=== PATIENT | male | born 1950 | race African-American/Black ===

== ENCOUNTER 2018-05-20 10:54 | Inpatient (IN) ==
--- NOTE | 2018-05-20 11:42 | PROVIDER DOCUMENTATION ---
This chart was entered by Yvette Hernandez Scribe, acting as scribe for Khoi Lundy MD. HPI-Musculoskeletal Pain/Inj - GENERAL Chief Complaint: Extremity Pain Stated Complaint: LEG PAIN Time Seen by Provider: 05/20/18 11:00 Source: patient - HX OF PRESENT ILLNESS-MUSKULOSKELTAL Nature of Presenting Problem: 68yom with hx of CHF, diabetes, HTN c/o bilateral knee pain since yesterday. He was seen in the [facility] ED yesterday for similar symptoms. He reports his pain worsened yesterday. He reports his physicians are located in the [facility] in [place], [place]. The patient's is at bedside. Quality of Pain: reports: aching Severity in ED: mild Onset/Duration: 24 hours ago (yesterday) Timing: still present, constant Modifying Factors: improves with: nothing Any recent injury?: No Similar Symptoms Previously?: No Recently seen or treated by another doctor?: No - LOWER EXTREMITY PAIN/INJURY Lower Extremities Pain: knee: left Context / Method of Injury: reports: unknown Associated Symptoms: denies: numbness in legs/feet Review of Systems - Adult - REVIEW OF SYSTEMS - ADULT Constitutional: denies: chills, fever Eyes: denies: discharge, dry eyes Ears, Nose, Mouth & Throat: denies: ear discharge, ear pain Cardiovascular: denies: chest pain, palpitations Respiratory: denies: cough, shortness of breath Gastrointestinal: denies: abdominal pain, diarrhea, nausea, vomiting Genitourinary: denies: dysuria, hematuria Musculoskeletal: reports: other (bilateral knee pain). denies: back pain, neck pain Integumentary: reports: no symptoms reported Neurological: denies: dizziness/vertigo, headache/migraines Psychiatric: reports: no symptoms reported Endocrine: reports: no symptoms reported Hematologic/Lymphatic: reports: no symptoms reported Allergic/Immunologic: reports: no symptoms reported All Other Systems: Reviewed and Negative Past History - Adult - PAST MEDICAL HISTORY-ADULT Review of Records: reports: Old Records Reviewed, Nursing Assessment Review, Medications Reviewed Major Childhood Illnesses: reports: denies history Cardiovascular: reports: CHF Respiratory: reports: denies history Gastrointestinal: reports: denies history Obstetrical/Gynecological: reports: denies history Genitourinary: reports: denies history Musculoskeletal: reports: denies history Neurological: reports: denies history Endocrine/Immune: reports: Diabetes Other Conditions: reports: denies history - PRIOR SURGERIES/PROCEDURES Surgical/Procedure History: reports: other - IMMUNIZATION STATUS Childhood Immunizations: See Nurse Assessment Flu Vaccine: See Nurse Assessment - FAMILY HISTORY Family History: reviewed, not pertinent - SOCIAL HISTORY Smoking: non-smoker Substance Use: alcohol Alcohol Use Frequency: rarely Living Situation: family Physical Exam-Injury Related - Physical Exam-Injury Related Initial Vital Signs Reviewed: Yes General Appearance: alert, no apparent distress Eyes: PERRL/EOMI, pink conjunctivae Neck: non-tender, supple Respiratory: lungs clear, normal breath sounds Cardiovascular: regular rate, rhythm, no murmur Extremity: other (LLE/RLE warm to touch, hyperthrophic degenerative arthritis in bilateral knees). negative: erythema (LLE/RLE) Integumentary: normal color, warm/dry Neurologic: grossly normal, no motor/sensory deficits Psych/Mental Status: normal mood/affect, normal thought content, normal thought process, oriented x 3 - Glascow Coma Score Best Eye Response (Nolberto): (4) open spontaneously Best Verbal Response (Nolberto): (5) oriented Best Motor Response (Nolberto): (6) obeys commands Sheridan Total: 15 Progress - PLAN OF CARE/RESULTS Progress/Plan/Lab Results: Vital Signs - 8 hr 05/20/18 10:58 Temperature 97.3 F L Pulse Rate 78 Respiratory Rate 16 Blood Pressure 134/77 O2 Sat by Pulse Oximetry 100 Departure - Departure Date of Disposition Decision: 05/20/18 Time of Disposition Decision: 11:26 DIAGNOSIS: Acute bilateral knee pain Degenerative arthritis Qualifiers: Osteoarthritis location: knee Osteoarthritis type: unspecified Laterality: bilateral Qualified Code(s): M17.0 - Bilateral primary osteoarthritis of knee Disposition: HOME 01 Certified Medical Emergency: Emergent Condition: Stable Additional Freetext Instructions: ED Follow Up Instructions: You have been treated by a care provider in the Emergency Department. These instructions are being provided to you so you can have an understanding of how to care for yourself upon discharge. Upon discharge from the Emergency Department, you are responsible for making arrangements for follow-up care by a physician of your choice. Take all prescribed medications as directed. Return to the Emergency Department immediately for any new or worsening symptoms. You may call the Physician Referral phone number at [phone] to obtain a list of Physicians who are taking new patients. Prescriptions: Hydrocodone/Acetaminophen [Collins 5-325 Tablet] 1 - 2 ea PO Q4-6H PRN PRN #20 tab PRN Reason: Pain Referrals and Follow-Ups: None,PCP [Primary Care Provider] - Discharge Education: Arthritis, [id number] - Critical Care Note This patient required my direct & personal management of CC.: No Attestation - Physician/ BRITTON Attestation Patient care was provided by Advanced Practice Provider:: No The physician spent face to face time with patient:: Yes Advanced Practice Provider documentation review:: Supervising physician onsite and consulted in the evaluation and care of this patient. The physician did have a face to face encounter with the patient. This chart was documented by the indicated scribe, (Yvette Hernandez, Jvibe) and accurately reflects the services I performed and decisions made by me, Khoi Lundy MD, as attested by the provider's signature.
[2018-05-20] MEDS ORDERED: DILAUDID IM ONE (11:52)
[2018-05-20] MEDS ORDERED: TORADOL IM ONE (11:52)
--- NOTE | 2018-05-20 15:17 | Diag Imaging Result Doc PS360 ---
EXAM: KNEE 1-2 VIEWS-RIGHT - 05/20/2018 HISTORY: knee pain TECHNIQUE: Right knee two views COMPARISON: None. FINDINGS: There are severe osteoarthritic changes. There is no fracture or dislocation identified. There is mild lateral subluxation of the tibia on the femur which is likely long-standing. There is a possible joint effusion, with fluid in the suprapatellar bursa. There are atherosclerotic calcifications noted. IMPRESSION: Severe osteoarthritic changes. Possible joint effusion. Electronically signed by Rui Espinoza 05/20/2018 3:15 PM
--- NOTE | 2018-05-20 15:19 | Diag Imaging Result Doc PS360 ---
EXAM: KNEE 1-2 VIEWS-LEFT - 05/20/2018 HISTORY: knee pain TECHNIQUE: Left knee three views COMPARISON: None. FINDINGS: There are moderate osteoarthritic changes. There is associated narrowing of the medial tibiofemoral joint. There is no fracture or dislocation identified. There are atherosclerotic calcifications noted. IMPRESSION: Moderate osteoarthritic changes. Electronically signed by Rui Espinoza 05/20/2018 3:17 PM
--- NOTE | 2018-05-20 15:21 | Diag Imaging Result Doc PS360 ---
EXAM: CHEST-PORTABLE - 05/20/2018 HISTORY: decreased mobility TECHNIQUE: Portable chest COMPARISON: 05/18/2028 chest two views FINDINGS: There is cardiomegaly similar to prior. There is transvenous cardiac pacemaker again seen. The lungs appear essentially clear. There is no pleural effusion or pneumothorax identified. IMPRESSION: Cardiomegaly similar to prior. No acute changes. Electronically signed by Rui Espinoza 05/20/2018 3:19 PM
[2018-05-20 16:13] LABS: BASO# 0.03 X1000 (0.0-0.2); BASO% 0.5 % (0.0-0.8); EOS# 0.05 X1000 (0.0-0.7); EOS% 0.8 % (0.0-10.0); HEMATOCRIT 31.7 % (42.0-52.0); HEMOGLOBIN 10.1 g/dL (14.0-18.0); LYMPH# 1.43 X1000 (1.2-3.4); MCH 28.4 PG (27-31); MCHC 31.9 g/dL (33-37); MONO# 0.57 X1000 (0.11-0.59); MONO% 8.8 % (1.7-9.3); MPV 10.7 FL (7.4-10.4); NEUT# 4.43 X1000 (1.4-6.5); NEUT% 67.9 % (42.2-75.2); PLT 196 X1000 (130-400); RBC 3.56 XMIL (4.7-6.1); RDW 14.1 % (11.5-14.5); WBC 6.51 X1000 (4.8-10.8)
[2018-05-20] MEDS ORDERED: NITROGLYCERIN SL PRN (16:27)
[2018-05-20 16:30] LABS: MAGNESIUM 1.3 mg/dL (1.5-2.7); PHOSPHORUS 3.1 mg/dL (2.7-4.5)
[2018-05-20 16:33] LABS: ALB/GLOB RATIO 1.1; ALBUMIN 3.4 g/dL (3.5-5.0); CALCIUM 9.5 mg/dL (8.8-10.2); CREATININE 1.5 mg/dL (0.7-1.2); POTASSIUM 3.8 mmol/L (3.5-5.1); TOTAL BILIRUBIN 0.96 mg/dL (0.20-1.00); TOTAL PROTEIN 6.5 g/dL (6.3-8.3)
[2018-05-20 16:34] LABS: INR 0.96; PROTIME 13.6 Seconds (11.0-16.0)
[2018-05-20 16:47] LABS: URINE SOURCE CLEAN CATCH
[2018-05-20 16:52] LABS: BILIRUBIN URINE NEGATIVE (NEGATIVE); BLOOD URINE NEGATIVE (NEGATIVE); COLOR YELLOW; GLUCOSE URINE NEGATIVE (NEGATIVE); KETONE URINE NEGATIVE (NEGATIVE); LEUKOCYTES URINE NEGATIVE (NEGATIVE); NITRITE URINE NEGATIVE (NEGATIVE); PH URINE 5.5; PROTEIN URINE TRACE mg/dL (NEGATIVE); SP GRAVITY URINE 1.006; TURBIDITY URINE CLEAR (CLEAR); UROBILINOGEN URINE 2 mg/dL (NORMAL)
[2018-05-20 16:53] LABS: UR EPITHELIAL CELLS <10 /HPF (<10); URINE BACTERIA NEGATIVE /HPF; URINE RBC <10 /HPF (<10); URINE WBC <10 /HPF (<10)
[2018-05-20 17:01] LABS: IRON SATURATION 7 %; TIBC 207 ug/dL; TOTAL IRON 14 ug/dL (53-167); UNBOUND IRON 193 ug/dL (112-346)
--- NOTE | 2018-05-20 17:10 | HISTORY AND PHYSICAL ---
CHIEF COMPLAINT: Bilateral knee pain. HISTORY OF PRESENT ILLNESS: Mr. Benoit is a 68-year-old, male , with a history of type 2 diabetes, hypertension, nonischemic cardiomyopathy, and systolic heart failure with an EF of 30%, who presents to the ER with bilateral knee pain that has been ongoing for some time but worse over the past few days. He actually came to the ER yesterday. He was given some Lasix for lower extremity edema and came back today with joint pain. He denies any fever or injury. He denies shortness of breath, chest pain, no abdominal pain, nausea, vomiting. He does have some mild lower extremity edema. He is essentially wheelchair bound secondary to his nonischemic cardiomyopathy but is somewhat immobile. We are currently awaiting laboratory data but we have obtained bilateral knee x- rays, which shows chronic changes but nothing acute. His chest x-ray shows cardiomegaly but no edema. His vital signs are stable. Will admit him for further treatment and evaluation. PAST MEDICAL HISTORY: 1. Nonischemic cardiomyopathy with EF of 30%. Heart catheterization in 2017 did show nonobstructive coronary disease. 2. Systolic heart failure with EF of 30%, status post ICD/pacemaker. 3. Diabetes mellitus, type 2. 4. Hypertension. 5. Sarcoidosis, not active. PAST SURGICAL HISTORY: Mediastinoscopy for sarcoid biopsy, pacemaker/ICD, and right knee arthroscopy. SOCIAL HISTORY: Drinks rarely. Denies tobacco or drug use. is at the bedside. FAMILY HISTORY: Noncontributory. REVIEW OF SYSTEMS: A 14-point review of systems obtained and found to be negative with the exception of the HPI. HOME MEDICATIONS: Aspirin 81 mg daily, atorvastatin 40 mg daily, vitamin D3 1000 units p.o. daily, glipizide 10 mg p.o. b.i.d., metformin 1000 mg p.o. b.i.d., Micro K 10 mEq p.o. daily, Cordarone 200 mg daily, Lasix 40 mg b.i.d., Toprol XL 25 mg daily, nitroglycerin 0.4 mg sublingual every five minutes as needed for chest pain x3, Diovan 40 mg daily. ALLERGIES: No known drug allergies. PHYSICAL EXAM: VITAL SIGNS: Blood pressure 134/77, heart rate 78, respiratory rate 16, O2 saturation 100% on room air. Temperature is 97.3. GENERAL: This is an elderly appearing, 68-year-old male lying in hospital bed in no acute distress. NEUROLOGIC: Awake, alert, and oriented. Follows commands. No focal deficits. HEENT: Head is atraumatic and normocephalic. Eyes: Pupils are equal, round and reactive to light. ENT: Oral mucosa is moist. NECK: Trachea is midline. There is no JVD. CHEST: Diminished but clear to auscultation. CARDIOVASCULAR: Regular rate and rhythm. S1, S2 is noted. There is a 2/6 murmur noted. GASTROINTESTINAL: Soft. Nondistended. Nontender. Bowel sounds are positive. EXTREMITIES: 1+ pitting edema bilaterally. Pulses palpable but diminished. Bilateral knees with arthritic changes but there is no palpable edema, redness, or warmth to touch. DIAGNOSTIC DATA: Bilateral knee x-rays show chronic osteoarthritic changes, possible joint effusion on the right. Chest x-ray shows cardiomegaly, nothing acute. EKG is pending. IMPRESSION AND PLAN: 1. Intractable bilateral knee pain: Will start the patient on [place] for pain. Consult Physical Therapy and go from there. Would try to avoid NSAIDs given his cardiac issues and we are awaiting his renal function. 2. Chronic systolic heart failure: Ejection fraction 30% per nuclear study in January of last year. He does have some mild lower extremity edema but his lungs are clear. He is not complaining of orthopnea or dyspnea. Will continue his home Lasix. Follow strict input and output, daily weights. Will keep him on telemetry as well. 3. Hypertension: Continue home medications. 4. Diabetes mellitus: Add patterned sugars, sliding scale insulin. Check hemoglobin A1c. 5. Anemia: Will check iron studies and treat accordingly. 6. Severe osteoarthritis: The patient has clear osteoarthritic changes of his knees on x-ray. We explained to the patient that symptom management will likely be his best option, as he is likely not a candidate for knee replacement given his nonischemic cardiomyopathy. Please see #1. 7. Deep venous thrombosis prophylaxis with Lovenox. Further recommendations to follow. Dictated by ALPHONSE Galvan for Dread Light MD cc: ALPHONSE Galvan MD [facility]
[2018-05-20 17:20] LABS: FERRITIN 437 ng/mL (30-400)
[2018-05-20] MEDS: GLUCOPHAGE PO SCH (18:22)
[2018-05-20] MEDS: NORCO-7.5 PO PRN (18:26)
[2018-05-20] MEDS: GLUCOTROL PO SCH (22:14)
[2018-05-20] MEDS: LASIX PO SCH (22:15)
[2018-05-21] MEDS: NORCO-7.5 PO PRN ×3 (02:22→21:09)
[2018-05-21 06:58] LABS: HEMATOCRIT 27.2 % (42.0-52.0); HEMOGLOBIN 8.8 g/dL (14.0-18.0); MCH 29.1 PG (27-31); MCHC 32.4 g/dL (33-37); MCV 90.1 FL (81-99); MPV 11.1 FL (7.4-10.4); RBC 3.02 XMIL (4.7-6.1); RDW 14.1 % (11.5-14.5); WBC 5.3 X1000 (4.8-10.8)
[2018-05-21 07:37] LABS: CALCIUM 9.5 mg/dL (8.8-10.2); CREATININE 1.6 mg/dL (0.7-1.2); POTASSIUM 3.9 mmol/L (3.5-5.1)
--- NOTE | 2018-05-21 08:11 | EKG Report ---
Test Performed on : 05/20/2018 3:41:49 PM Test Reason : decreased mobility Blood Pressure : / mmHG Vent. Rate : 082 BPM Atrial Rate : 036 BPM P-R Int : 000 ms QRS Dur : 176 ms QT Int : 464 ms P-R-T Axes : 000 077 234 degrees QTc Int : 542 ms Ventricular-paced rhythm Abnormal ECG When compared with ECG of 19-FEB-2017 03:13, Electronic ventricular pacemaker has replaced Sinus rhythm. Unconfirmed Result
[2018-05-21] MEDS: KLOR-CON PO SCH (09:49)
[2018-05-21] MEDS: DIOVAN PO SCH (09:51)
[2018-05-21] MEDS: ASPIRIN PO SCH (09:51)
[2018-05-21] MEDS: LIPITOR PO SCH (09:52)
[2018-05-21] MEDS: VITAMIN D PO SCH (09:52)
[2018-05-21] MEDS: LASIX PO SCH ×2 (09:52→21:09)
[2018-05-21] MEDS: GLUCOPHAGE PO SCH ×2 (09:52→17:15)
[2018-05-21] MEDS: CORDARONE PO SCH (09:53)
[2018-05-21] MEDS: GLUCOTROL PO SCH ×2 (09:53→21:09)
[2018-05-21] MEDS: TOPROL XL PO SCH (09:53)
[2018-05-21] MEDS ORDERED: MAGNESIUM SULFATE 2 GM/S.W.I. 2 GM/50 ML IVPB IV ONE (10:36)
[2018-05-21] MEDS: FOLIC ACID PO SCH (13:39)
--- NOTE | 2018-05-21 18:15 | PROGRESS NOTE ---
DATE: 05/21/2018 SUBJECTIVE: This patient is resting comfortably in bed, he is complaining of bilateral knee pain, he does have severe osteoarthritis. I do not think he is a good candidate for any kind of procedure due to his history of cardiomyopathy but I will get Orthopedic Surgery Department and if they offer any kind of solution like replacement I will talk to Cardiology Department to see if this patient can go to the OR for this kind of procedure. OBJECTIVE: Vital Signs: Temperature 98.4 degrees, pulse 57, respiratory rate 24, blood pressure 92/58, oxygen saturation 97 on room air. HEENT: Head normocephalic. No trauma. PERRLA. Neck: Supple. No JVD. No masses. Central trachea. Chest: Clear to auscultation. No wheezing, no rales. Abdomen: Soft, nontender, nondistended, no hepatosplenomegaly. Cardiovascular: RRR, systolic murmur. Extremities: Trace edema bilaterally, no clubbing, no cyanosis. Bilateral knees with arthritic changes but there is not palpable edema or redness. LABORATORY: WBC 5.3, hemoglobin 8.8, hematocrit 27.2, platelets 200,000, sodium 140, potassium 3.9, chloride 101, bicarbonate 27, BUN 24, creatinine 1.6, glucose 100, calcium 9.5. ASSESSMENT AND PLAN: 1. Intractable bilateral knee pain likely due to severe osteoarthritis. Continue with pain medication. We will consult Orthopedic Surgery Department to evaluate this patient, if there is some kind of solution like knee replacement then we need to talk to Cardiology Department to reevaluate this patient to see if he is a candidate to go to the OR. 2. Chronic systolic heart failure, ejection fraction of 30%, will continue with the same management, continue with telemetry. No changes. 3. Hypertension. Continue home medication. 4. Type 2 diabetes. Continue with pattern of blood sugar and sliding scale insulin. 5. Anemia, will monitor. 6. Severe osteoarthritis as per #1. 7. Deep vein thrombosis prophylaxis. Continue with Lovenox. 8. It looks like he does not have a family member to take care of him and he cannot walk because of his severe pain. Probably we need to get psychiatric social worker supervisor to evaluate this case. cc: Dread Light MD
[2018-05-22] MEDS: NORCO-7.5 PO PRN ×3 (03:02→15:38)
[2018-05-22 06:14] LABS: BASO# 0.02 X1000 (0.0-0.2); BASO% 0.3 % (0.0-0.8); EOS# 0.11 X1000 (0.0-0.7); EOS% 1.4 % (0.0-10.0); HEMATOCRIT 28.8 % (42.0-52.0); HEMOGLOBIN 9.1 g/dL (14.0-18.0); LYMPH# 2.06 X1000 (1.2-3.4); LYMPH% 26.4 % (20.5-51.1); MCH 28.2 PG (27-31); MCHC 31.6 g/dL (33-37); MCV 89.2 FL (81-99); MONO# 0.67 X1000 (0.11-0.59); MONO% 8.6 % (1.7-9.3); MPV 10.9 FL (7.4-10.4); NEUT# 4.95 X1000 (1.4-6.5); NEUT% 63.3 % (42.2-75.2); PLT 254 X1000 (130-400); RBC 3.23 XMIL (4.7-6.1); WBC 7.81 X1000 (4.8-10.8)
[2018-05-22 06:39] LABS: CALCIUM 10.2 mg/dL (8.8-10.2); CREATININE 1.5 mg/dL (0.7-1.2); POTASSIUM 4.2 mmol/L (3.5-5.1)
[2018-05-22] MEDS: DIOVAN PO SCH (08:07)
[2018-05-22] MEDS: LASIX PO SCH ×2 (08:08→21:27)
[2018-05-22] MEDS: CORDARONE PO SCH (08:08)
[2018-05-22] MEDS: GLUCOPHAGE PO SCH ×2 (08:08→16:59)
[2018-05-22] MEDS: KLOR-CON PO SCH (08:08)
[2018-05-22] MEDS: ASPIRIN PO SCH (08:08)
[2018-05-22] MEDS: LIPITOR PO SCH (08:08)
[2018-05-22] MEDS: FOLIC ACID PO SCH (08:08)
[2018-05-22] MEDS: GLUCOTROL PO SCH ×2 (08:09→21:27)
[2018-05-22] MEDS: VITAMIN D PO SCH (08:09)
[2018-05-22] MEDS: TOPROL XL PO SCH ×2 (08:09→09:00)
--- NOTE | 2018-05-22 12:12 | PROGRESS NOTE ---
DATE: 05/22/2018 SUBJECTIVE: Mr. Benoit presented with bilateral knee pain, but the left was giving a lot of trouble. This is a 68-year-old male with history of diabetes mellitus type 2, hypertension, nonischemic cardiomyopathy, systolic heart failure with ejection fraction of 30%, who presented to the emergency room with bilateral knee pain ongoing for some time, but worse over the past few days. The left seemed to be worse than the right. Given some Lasix for lower extremity edema and came back. He had been in the emergency room the day before admission, got some Lasix for lower extremity edema. Came back with joint pain. Denies any shortness of breath, chest pain, abdominal pain, nausea or vomiting. PAST MEDICAL HISTORY: Reviewed again. 1. Nonischemic cardiomyopathy. Ejection fraction 30%. Heart catheterization done in 2017 showed nonobstructive coronary artery disease. 2. Systolic heart failure with ejection fraction 30%. He is status post ICD pacemaker. 3. Diabetes mellitus type 2. 4. Hypertension. 5. Sarcoidosis, which is not active. PAST SURGICAL HISTORY: Mediastinoscopy for lung biopsy for sarcoidosis, pacemaker, ICD placement, right knee arthroplasty. OBJECTIVE: General: On exam today, he is awake and alert. Extremities: He says the right knee feels okay, but his left knee is still giving him a lot of pain. Apparently, Orthopedic has evaluated already. He reports that Orthopedic had seen him. His knee he is not tender to touch, but it is very tender with any movement still. ASSESSMENT AND PLAN: 1. Intractable bilateral knee pain likely secondary to osteoarthritis. Continues pain medication. Orthopedic has been consulted. 2. Cardiomyopathy nonischemic systolic heart failure. Ejection fraction 30%. He appears to be well compensated. 3. Hypertension. 4. Diabetes mellitus type 2. 5. Anemia. 6. We will continue deep vein thrombosis prophylaxis. 7. Review of orders: He is on amiodarone 200 mg daily, aspirin 81 mg a day, Lipitor 40 mg a day, vitamin D 3 1000 units daily, folic acid 1 mg a day, Lasix 40 mg b.i.d. Glucotrol 10 mg b.i.d., hydrocodone 7.5 mg q. 6 hours, metformin 1000 mg b.i.d., metoprolol 25 mg daily, potassium chloride 10 mEq daily, Diovan 40 mg daily, magnesium sulfate (he got 1 dose of 2 g IV). Had cardiac imaging: Left ventricle is dilated, left ventricular ejection fraction calculated about 31%. Had a heart catheterization done on 02/21/2017: Significantly elevated left ventricular end-diastolic pressure. Right dominant coronary anatomy with mild to moderate focal stenosis in the mid to distal left circumflex coronary artery, and moderate 50% eccentric stenosis in the proximal right coronary artery. On review of his orders, I do not know that I see any change. I do think we ought to check his uric acid level, check thyroid, B 12 and folate. Blood sugars appear well controlled. cc: Kali Skinner MD
--- NOTE | 2018-05-22 12:41 | CONSULTATION ---
DATE OF CONSULTATION: 05/22/2018 REASON FOR CONSULTATION: Bilateral osteoarthritis. HISTORY OF PRESENT ILLNESS: Mr. Benoit is a 68-year-old male with a past medical history of type 2 diabetes, hypertension, nonischemic cardiomyopathy, and systolic heart failure with an EF of 30%, who presented to the ER with bilateral lower extremity edema and bilateral knee pain. He states the knee pain has been going on for several years. He recently went to the [place] about 3 or 4 weeks ago, and had bilateral knee injections with the Depo-Medrol. He states that it gave him a few days relief. However, his pain has returned. The knee pain became very severe and continued to worsen over the past few days. He presented to the emergency room because of the bilateral knee pain. He was given Lasix for the lower extremity edema, but continued to have knee pain. Currently, he denies any shortness of breath, chest pain, abdominal pain, nausea or vomiting. He does still have some mild lower extremity edema. Overall, he is pretty immobile related to his ischemic heart failure and the bilateral knee pain. PAST MEDICAL HISTORY: 1. Nonischemic cardiomyopathy with an EF of 30%. 2. Systolic heart failure with EF of 30%. 3. Diabetes mellitus type 2. 4. Primary essential hypertension. 5. Sarcoidosis. 6. Bilateral knee osteoarthritis. PAST SURGICAL HISTORY: 1. Sarcoid biopsy. 2. Pacemaker ICD placement. 3. Right knee arthroscopy. SOCIAL HISTORY: Occasionally drinks. Denies tobacco or illicit drug use. Lives with his . FAMILY HISTORY: Noncontributory. REVIEW OF SYSTEMS: A 10 point review of systems was obtained and found to be negative, except for as mentioned above in the HPI. HOME MEDICATIONS: 1. Aspirin 81 mg p.o. daily. 2. Atorvastatin 40 mg p.o. daily. 3. Vitamin D 3000 units p.o. daily. 4. Glipizide 10 mg p.o. b.i.d. 5. Metformin 1000 mg p.o. b.i.d. 6. Micro-K 10 mEq p.o. daily. 7. Cordarone 200 mg p.o. daily. 8. Lasix 40 mg b.i.d. 9. Toprol-XL 25 mg p.o. daily. 10. Nitroglycerin 0.4 mg sublingual every 5 minutes as needed for chest pain. 11. Diovan 40 mg p.o. daily. ALLERGIES: No known drug allergies. PHYSICAL EXAMINATION: Current Vital Signs: Temperature is 99.5, respirations are 16, pulse is 63, blood pressure is 97/62. He is 93% on room air. General: This is a very pleasant 68-year- old male in no acute distress. Neurologic: He is alert and oriented x3. Follows commands and does not have any focal deficits. HEENT: Head is atraumatic, normocephalic. Pupils are equal, round, reactive to light. Chest: Breathing is even and nonlabored. CV: Regular rate and rhythm. Gastrointestinal: Abdomen appears nondistended. Extremities: He does have some mild pitting edema bilaterally. He has a 1+ pedal pulse. He does have arthritic changes to bilateral knees. He does have some scarring on that right knee from a previous surgery. There is no skin ulcerations or abrasions. He does have full flexion and extension. There is no notable effusion. Bilateral knee x-rays does show chronic osteoarthritic changes. You can see a little bit of varus deformity on that left side. He does have pretty severe degenerative changes, especially on the right side. IMPRESSION: Bilateral knee osteoarthritis. PLAN: After speaking with Mr. Benoit, it does sound like he has an orthopedic surgeon he is seeing at the [facility]. He had steroid injections about 3 or 4 weeks ago. Apparently, they have been following him for quite some time and doing the injections for several months now. Unfortunately, it does look like he would require a total knee replacement at some point. Unfortunately, medically he is not stable enough to undergo a total knee replacement. While he is here in the hospital, we will work on pain control as well as physical therapy. Right now the best thing to do is work on keeping him moving with physical therapy and oral pain medicine. He is going to follow up with his orthopedic surgeon once he is discharged from the hospital. If we can be any further assistance, please give us a call. Thank you for the consult. Dictated by ALPHONSE Durbin for Mao Perez MD cc: ALPHONSE Durbin MD
[2018-05-22] MEDS: SOLU-MEDROL IV SCH ×2 (17:06→21:27)
[2018-05-23] MEDS: SOLU-MEDROL IV SCH ×2 (04:26→12:19)
[2018-05-23 06:17] LABS: HEMATOCRIT 30.1 % (42.0-52.0); HEMOGLOBIN 9.6 g/dL (14.0-18.0); MCH 28.5 PG (27-31); MCHC 31.9 g/dL (33-37); MCV 89.3 FL (81-99); MPV 11.4 FL (7.4-10.4); RBC 3.37 XMIL (4.7-6.1); RDW 14.1 % (11.5-14.5); WBC 4.82 X1000 (4.8-10.8)
[2018-05-23 06:29] LABS: AGAP 17; BUN 36 mg/dL (8-22); CALCIUM 9.8 mg/dL (8.8-10.2); CHLORIDE 92 mmol/L (98-107); COSMO 280; CREATININE 1.4 mg/dL (0.7-1.2); ESTIMATED GFR > 60; GLUCOSE 265 mg/dL (70-104); POTASSIUM 4.7 mmol/L (3.5-5.1); SODIUM 131 mmol/L (136-145); TCO2 22 mmol/L (25-35)
[2018-05-23 06:30] LABS: C REACTIVE PROT QUANT < 0.03 mg/L (0.00-5.00); URIC ACID 10.1 mg/dL (3.4-7.0)
[2018-05-23 06:36] LABS: T4 10.49 ug/dL (4.60-12.00); TSH 0.98 uIUmL (0.27-4.20)
[2018-05-23] MEDS: GLUCOTROL PO SCH ×3 (08:05→21:03)
[2018-05-23] MEDS: FOLIC ACID PO SCH (08:06)
[2018-05-23] MEDS: TOPROL XL PO SCH (08:06)
[2018-05-23] MEDS: KLOR-CON PO SCH (08:06)
[2018-05-23] MEDS: LIPITOR PO SCH (08:06)
[2018-05-23] MEDS: GLUCOPHAGE PO SCH ×2 (08:06→18:00)
[2018-05-23] MEDS: VITAMIN D PO SCH (08:06)
[2018-05-23] MEDS: LASIX PO SCH ×3 (08:06→21:03)
[2018-05-23] MEDS: DIOVAN PO SCH (08:06)
[2018-05-23] MEDS: CORDARONE PO SCH (08:06)
[2018-05-23] MEDS: ASPIRIN PO SCH (08:06)
[2018-05-23] MEDS: NORCO-7.5 PO PRN ×2 (09:20→19:55)
[2018-05-23] MEDS: ANALGESIC BALM TOP PRN (11:45)
--- NOTE | 2018-05-23 13:40 | PROGRESS NOTE ---
DATE: 05/23/2018 SUBJECTIVE: He states his left leg or knee may be a little better but it hurts pretty good when he stands up, but when he is just resting it, it is better. It does not hurt to manipulate it as much. OBJECTIVE: Temperature 98.1, pulse 69, respirations 19, blood pressure 117/73. Pupils are equal and round. Lungs are clear in all lung barakat. Cardiovascular: Regular rhythm and rate without murmur or S3. Urine output is 1500 mL. Blood sugar 112, 276, and 333. ASSESSMENT AND PLAN: 1. He has seen an orthopedic surgeon at the [facility], and I think they talked about stem cell transplant. He has had some steroid injections about 4 weeks ago. Have been following him for some time with injection several months for several months. Unfortunately, it looks like he required a total knee replacement at some point. Medically, I do not feel he is stable at this time. So, we are going to begin physical therapy and continue nonsteroidal anti- inflammatories follow up with his orthopedic surgeon. He is talking about wanting to go to rehab. I am not sure he will be able to go home. 2. Cardiomyopathy, nonischemic. Ejection fraction 30%. Appears to be well compensated. 3. Hypertension. 4. Diabetes mellitus, type 2. 5. Anemia. 6. Will continue deep vein prophylaxis with stockings. 7. He is treated for atrial fibrillation and is on some amiodarone. He does have an implantable cardioverter-defibrillator. 8. Diabetes mellitus. His sugars have been a little higher since we started him on some steroids. We will get physical therapy to see what we can do and set him up, hopefully, to go to rehab if he is a candidate. cc: Kali Skinner MD
[2018-05-24] MEDS: SOLU-MEDROL IV SCH ×2 (01:38→14:33)
[2018-05-24 06:40] LABS: HEMATOCRIT 28.7 % (42.0-52.0); HEMOGLOBIN 9.1 g/dL (14.0-18.0); MCH 27.7 PG (27-31); MCHC 31.7 g/dL (33-37); MCV 87.2 FL (81-99); MPV 10.7 FL (7.4-10.4); RBC 3.29 XMIL (4.7-6.1); RDW 13.9 % (11.5-14.5); WBC 11.97 X1000 (4.8-10.8)
[2018-05-24 06:50] LABS: CALCIUM 10.5 mg/dL (8.8-10.2); CREATININE 1.9 mg/dL (0.7-1.2); POTASSIUM 4.9 mmol/L (3.5-5.1)
[2018-05-24] MEDS: GLUCOPHAGE PO SCH ×2 (08:42→17:22)
[2018-05-24] MEDS: VITAMIN D PO SCH (09:02)
[2018-05-24] MEDS: ASPIRIN PO SCH (09:02)
[2018-05-24] MEDS: DIOVAN PO SCH (09:02)
[2018-05-24] MEDS: LIPITOR PO SCH (09:03)
[2018-05-24] MEDS: FOLIC ACID PO SCH (09:03)
[2018-05-24] MEDS: LASIX PO SCH ×2 (09:03→23:37)
[2018-05-24] MEDS: GLUCOTROL PO SCH ×2 (09:03→23:37)
[2018-05-24] MEDS: CORDARONE PO SCH (09:04)
[2018-05-24] MEDS: KLOR-CON PO SCH (09:04)
[2018-05-24] MEDS: TOPROL XL PO SCH (09:05)
--- NOTE | 2018-05-24 17:23 | PROGRESS NOTE ---
DATE: 05/24/2018 SUBJECTIVE: Mr. Benoit says his knee is doing a little better, and he was ambulating, walking some. He definitely is feeling better. He is eating, and bowels are moving okay. OBJECTIVE: Vital signs: Temperature 97.75 degrees, pulse 56, respirations 20, blood pressure 96/72. HEENT: Pupils are equal and round. Lungs: Clear in all lung [place]. Cardiovascular: Regular rhythm and rate without murmur or S3. Abdomen: Soft. Skin: Warm and dry. Output: Urine output is 1000 mL. DIAGNOSTIC STUDIES: Blood sugar 348, 214, 144. ASSESSMENT AND PLAN: 1. Severe osteoarthritis of both knees. He is followed by an orthopedist at the [facility]. I am not sure he will be eligible for inpatient rehabilitation. Social Service is looking. 2. Cardiomyopathy, nonischemic, ejection fraction 30%. He appears well compensated. 3. Hypertension. 4. Diabetes mellitus, type 2. Sugars controlled. 5. Anemia. 6. He is on stockings for deep vein thrombosis (DVT) prophylaxis. 7. Has been treated for atrial fibrillation. He is on amiodarone and has an implantable cardiac defibrillator pacemaker. Looking at his orders, I do not see any change. We will see if we can discharge him home tomorrow. cc: Kali Skinner MD
[2018-05-24] MEDS: NORCO-7.5 PO PRN (20:46)
[2018-05-24] MEDS: ANALGESIC BALM TOP PRN (20:47)
[2018-05-25] MEDS: SOLU-MEDROL IV SCH ×2 (01:35→13:55)
[2018-05-25 06:55] LABS: HEMATOCRIT 29.1 % (42.0-52.0); HEMOGLOBIN 9.2 g/dL (14.0-18.0); MCH 28.1 PG (27-31); MCHC 31.6 g/dL (33-37); MPV 10.7 FL (7.4-10.4); RBC 3.27 XMIL (4.7-6.1); RDW 14.4 % (11.5-14.5); WBC 5.59 X1000 (4.8-10.8)
[2018-05-25 07:20] LABS: CALCIUM 10.2 mg/dL (8.8-10.2); CREATININE 1.8 mg/dL (0.7-1.2); POTASSIUM 5.1 mmol/L (3.5-5.1)
[2018-05-25] MEDS: NORCO-7.5 PO PRN (08:00)
[2018-05-25] MEDS: ANALGESIC BALM TOP PRN (08:00)
[2018-05-25] MEDS: GLUCOPHAGE PO SCH (08:01)
[2018-05-25] MEDS: DIOVAN PO SCH (09:15)
[2018-05-25] MEDS: LASIX PO SCH (09:16)
[2018-05-25] MEDS: GLUCOTROL PO SCH (09:16)
[2018-05-25] MEDS: CORDARONE PO SCH (09:17)
[2018-05-25] MEDS: LIPITOR PO SCH (09:17)
[2018-05-25] MEDS: KLOR-CON PO SCH (09:17)
[2018-05-25] MEDS: TOPROL XL PO SCH (09:17)
[2018-05-25] MEDS: VITAMIN D PO SCH (09:17)
[2018-05-25] MEDS: FOLIC ACID PO SCH (09:17)
--- NOTE | 2018-05-25 13:11 | DISCHARGE SUMMARY ---
ADMISSION DATE: 05/22/2018 DISCHARGE DATE: 05/25/2018 DISPOSITION: Discharged to [facility] rehab on 05/25/2018. PRIMARY CARE PHYSICIAN: No primary care physician. HISTORY OF PRESENT ILLNESS: Presented with bilateral knee pain. This is a 68-year-old male with a history of type 2 diabetes mellitus, hypertension, nonischemic cardiomyopathy, systolic heart failure with ejection fraction of 30% who presented to the emergency room with bilateral knee pain been ongoing for some time but worse over the past few days. Came to the emergency room. He was given some Lasix for lower extremity edema. Came back the following day complaining of joint pain. Denies shortness of breath, chest pain. No abdominal pain, nausea, vomiting. Did have mild lower extremity edema. PAST MEDICAL HISTORY: 1. Nonischemic cardiomyopathy. Ejection fraction 30%. Heart catheterization 2016. Did show nonobstructive coronary artery disease so nonischemic cardiomyopathy. 2. Systolic heart failure. Ejection fraction 30%. He has an ICD and pacemaker placed. 3. Diabetes mellitus type 2. 4. Hypertension. 5. Sarcoidosis which is not active, just history of sarcoidosis. PAST SURGICAL HISTORY: 1. He had a mediastinoscopy for sarcoid biopsy in the past. 2. Pacemaker ICD placement. 3. Right knee arthroscopically. HOSPITAL COURSE: He complained of quite a bit of pain. The left is worse than the other than the right with some effusion and concern that it was just degenerative arthritis. It turns out he is followed by an orthopedist through the [place] system and they were even considering stem-cell implant. We had put him on some Solu-Medrol and this seemed to help and we begin some physical therapy. Was able to get a little bit of relief. Still very painful to put weight on it. He lives alone so would like to go to rehab. From his standpoint of heart failure, his volume status and electrolytes were good. His blood pressure well controlled. His diabetes standpoint, his blood sugars appear well controlled although ran a little high while he is on the Solu-Medrol. So we will let him go to [facility]. Discharge him today. DISCHARGE MEDICATIONS: He is on amiodarone 200 mg a day. This is for his underlying atrial fibrillation. aspirin 81 mg a day, Lipitor 40 mg a day, vitamin D 1000 units daily, folic acid 1 mg daily, Lasix 40 mg p.o. b.i.d., Glucotrol 10 mg b.i.d., [place] 7.5 q.6 h. p.r.n. pain. He is using an analgesic balm on his knees which will continue. Metformin 1000 mg p.o. b.i.d. We will stop the Solu-Medrol and put him on Medrol Dosepak. He is on Toprol-XL 25 mg a day. Klor-Con 10 mEq daily, Diovan 40 mg p.o. daily. His nutrition is good. Appetite is good. cc: Kali Skinner MD
[2018-05-25 13:30] VITALS: BP 95/79
[2018-05-25] MEDS: ASPIRIN PO SCH (13:47)
== END 2018-05-25 14:56 | DRG 554 ==
LOC: ED 10:54 → 4N 10:54 → SUATTDRO 16:44
PROVIDERS: ATTEND Emergency Medicine
CPT/HCPCS: 71010; 71045; 73560; 80048; 80053; 81001; 82607; 82728; 82746; 82948; 83540; 83550; 83735; 84100; 84436; 84443; 84550; 85025; 85027; 85610; 85651; 86140; 93005; 96372; 97162; 97530; 99285; A9270; J1170; J1885; J2920; J3475; XXXXX

== ENCOUNTER 2019-01-17 14:19 | Inpatient (IN) ==
[2019-01-17] MEDS ORDERED: TYLENOL PO ONE (14:50)
[2019-01-17] MEDS ORDERED: NS 1,000 ML IV ONE ×3 (14:50→17:42)
[2019-01-17] MEDS ORDERED: TORADOL IV ONE (15:01)
[2019-01-17 15:11] LABS: BASO# 0.01 X1000 (0.0-0.2); BASO% 0.1 % (0.0-0.8); EOS# 0.03 X1000 (0.0-0.7); EOS% 0.2 % (0.0-10.0); HEMATOCRIT 32.9 % (42.0-52.0); HEMOGLOBIN 10.9 g/dL (14.0-18.0); IMM GRAN# 0.02 X1000 (0.0-0.04); IMM GRAN% 0.2 % (0.0-0.5); LYMPH# 2.07 X1000 (1.2-3.4); LYMPH% 16.8 % (20.5-51.1); MCH 29.1 PG (27-31); MCHC 33.1 g/dL (33-37); MONO% 6.5 % (1.7-9.3); MPV 11.6 FL (7.4-10.4); NEUT# 9.42 X1000 (1.4-6.5); NEUT% 76.2 % (42.2-75.2); PLT 119 X1000 (130-400); RBC 3.74 XMIL (4.7-6.1); RDW 15.1 % (11.5-14.5); WBC 12.35 X1000 (4.8-10.8)
--- NOTE | 2019-01-17 15:20 | Diag Imaging Result Doc PS360 ---
EXAM: CHEST-1 VIEW HISTORY: fever TECHNIQUE: Chest single view COMPARISON: None 2018 FINDINGS: The lungs are well expanded. The heart is mildly prominent. Left pacemaker. The vessels are not distended. There are no infiltrates. No effusion identified. IMPRESSION: No pneumonia Electronically signed by Jeanmarie Mcbride 01/17/2019 3:17 PM
[2019-01-17 15:53] LABS: AGAP 14; ALBUMIN 3.3 g/dL (3.5-5.0); ALKALINE PHOSPHATASE 151 U/L (32-122); BUN 26 mg/dL (8-22); CALCIUM 10.8 mg/dL (8.8-10.2); CHLORIDE 95 mmol/L (98-107); COSMO 286; CREATININE 1.4 mg/dL (0.7-1.2); ESTIMATED GFR > 60; GLUCOSE 306 mg/dL (70-104); GOT 47 U/L (10-34); GPT 25 U/L (10-44); POTASSIUM 4.4 mmol/L (3.5-5.1); SODIUM 135 mmol/L (136-145); TCO2 26 mmol/L (25-35); TOTAL BILIRUBIN 2.44 mg/dL (0.20-1.00); TOTAL PROTEIN 6.6 g/dL (6.3-8.3)
[2019-01-17 17:01] LABS: URINE SOURCE CATH
[2019-01-17 17:17] LABS: BILIRUBIN URINE NEGATIVE (NEGATIVE); BLOOD URINE NEGATIVE (NEGATIVE); COLOR YELLOW; GLUCOSE URINE 100 mg/dL (NEGATIVE); KETONE URINE NEGATIVE (NEGATIVE); LEUKOCYTES URINE NEGATIVE (NEGATIVE); NITRITE URINE NEGATIVE (NEGATIVE); PROTEIN URINE 50 mg/dL (NEGATIVE); SP GRAVITY URINE 1.017; TURBIDITY URINE CLEAR (CLEAR); UR EPITHELIAL CELLS >10 /HPF (<10); URINE BACTERIA NEGATIVE /HPF; URINE RBC <10 /HPF (<10); URINE WBC <10 /HPF (<10); UROBILINOGEN URINE >12 mg/dL (NORMAL)
[2019-01-17] MEDS ORDERED: VANCOMYCIN 1 GM/NS 1 GM/250 ML IVPB IV ONE (17:42)
[2019-01-17] MEDS ORDERED: ZOSYN 3.375 GM in NS 50 ML IV ONE (17:42)
[2019-01-17] MEDS ORDERED: NS 1,000 ML ONE (17:45)
--- NOTE | 2019-01-17 17:59 | PROVIDER DOCUMENTATION ---
This chart was entered by Gladys Lawler Scribe, acting as scribe for Sundar Sheldon MD. HPI-General Adult - General Chief Complaint: Altered Mental Status Stated Complaint: AMS Time Seen by Provider: 01/17/19 14:36 Source: patient, family (), EMS Allergies/Adverse Reactions: Patient Allergies Allergy/AdvReac Type Severity Reaction Status Date / Time No Known Allergies Allergy Verified 01/17/19 17:43 Home Medications: Home Medication List Medication Instructions Recorded Confirmed Last Taken Type Glipizide 5 mg PO BID 02/26/15 01/17/19 01/16/19 History Aspirin 1 tab PO DAILY 01/09/17 01/17/19 01/16/19 History Cholecalciferol (Vitamin D3) 1 tab PO DAILY 01/09/17 01/17/19 01/16/19 History [Vitamin D3] Amiodarone [Cordarone] 200 mg PO DAILY #90 tab 02/24/17 01/17/19 01/16/19 Rx Atorvastatin Calcium 40 mg PO DAILY 05/20/18 01/17/19 01/16/19 History Carvedilol 6.25 mg PO BID 01/10/19 01/17/19 01/16/19 History Torsemide 20 mg PO BID 01/10/19 01/17/19 Unknown History Cephalexin [Keflex] 1 cap PO BID 01/17/19 01/17/19 01/17/19 History Diclofenac 1% Gel [Voltaren 1% Gel] 2 g TOP TID PRN 01/17/19 01/17/19 01/16/19 History Nitroglycerin S.l. [Nitroglycerin] 1 tab PO DIRECTED 01/17/19 01/17/19 Unknown History Potassium Chloride 0.5 tab PO DAILY 01/17/19 01/17/19 01/16/19 History Sacubitril/Valsartan [Entresto 49 1 tab PO BID 01/17/19 01/17/19 01/16/19 History mg-51 mg Tablet] - History of Present Illness -Gen Adult Nature of Presenting Problems: 68 yobm presents to the ed with at bedside. pt sts this aqm woke with confusion, decreased appetite, fever, and is on abx due to wound. pt looks ill on exam and does answer questions when asked. pt is alert and will look at when she speaks and look at dr when he speaks Location of Pain/Injury: reports: none Pain Radiation: reports: no radiation Quality of Pain: reports: none Severity: reports: moderate Onset/Duration: reports: this morning Timing: reports: still present, constant Context/Activities at Onset: reports: light activity Modifying Factors: improves with: nothing Associated Symptoms: reports: fever/chills, loss of appetite, malaise, weakness, other (confusion). denies: back/neck pain, chest pain, cough, headaches, nausea, shortness of breath Similar Symptoms Previously?: No Recently seen or treated by another doctor?: No Review of Systems - Adult - REVIEW OF SYSTEMS - ADULT ROS:: ROS per family () Constitutional: reports: see HPI, chills, fever Eyes: reports: no symptoms reported Ears, Nose, Mouth & Throat: reports: no symptoms reported Cardiovascular: denies: chest pain, palpitations, syncope Respiratory: denies: cough, shortness of breath, wheezing Gastrointestinal: reports: poor appetite. denies: abdominal pain, diarrhea, nausea, vomiting Genitourinary: reports: no symptoms reported Musculoskeletal: reports: see HPI, other (chronic pain) Integumentary: reports: no symptoms reported Neurological: reports: see HPI, other (confused). denies: numbness, slurred speech Psychiatric: reports: no symptoms reported Endocrine: reports: no symptoms reported Hematologic/Lymphatic: reports: no symptoms reported Allergic/Immunologic: reports: no symptoms reported All Other Systems: Reviewed and Negative Past History - Adult - PAST MEDICAL HISTORY-ADULT Review of Records: reports: Old Records Reviewed, Nursing Assessment Review, Medications Reviewed, Social history reviewed & non-contributory. Major Childhood Illnesses: reports: denies history Cardiovascular: reports: CHF, HTN, hyperlipidemia Respiratory: reports: COPD Gastrointestinal: reports: GERD Genitourinary: reports: denies history Musculoskeletal: reports: denies history Neurological: reports: denies history Psychiatric: reports: denies history Endocrine/Immune: reports: Diabetes Diabetes Type: Type 2 Other Conditions: reports: denies history - PRIOR SURGERIES/PROCEDURES Surgical/Procedure History: reports: reviewed, not pertinent - IMMUNIZATION STATUS Childhood Immunizations: See Nurse Assessment Flu Vaccine: See Nurse Assessment - FAMILY HISTORY Family History: reviewed, not pertinent - SOCIAL HISTORY Smoking: quit greater than 1 year Substance Use: alcohol Alcohol Use Frequency: occasionally Number of drinks per typical drinking period:: 3-4 drinks Living Situation: family Physical Exam-General - PHYSICAL EXAM-ADULT Exam Limited by: pt is nonverbal on exam and confused per Initial Vital Signs Reviewed: Yes - CONSTITUTIONAL General Appearance: alert, moderate distress - EYES Eyes: pale conjunctivae - HEAD, EARS, NOSE, MOUTH & THROAT HENMT: negative: moist mucous membranes (dry oral) - NECK Neck: non-tender, full range of motion, normal inspection - RESPIRATORY Respiratory: chest non-tender, lungs clear, normal breath sounds, other (94% on RA) - CARDIOVASCULAR Cardiovascular: normal peripheral pulses, regular rate, rhythm - GASTROINTESTINAL (ABDOMEN) Abdominal Exam: non tender, soft - GENITOURINARY Male Genitalia: deferred Rectal Exam: deferred Hemoccult Exam: deferred - MUSCULOSKELETAL Back Exam: other (pt lying in bed on back) Extremity: normal capillary refill, pelvis stable, other (has wound on anterior RLE looks to be healing well/ rt arm has tremor and can not use per ) - SKIN Integumentary: normal color, warm/dry - NEUROLOGIC Neurologic: other (pt is onverbal on exam sts confused) - PSYCHIATRIC Psych/Mental Status: disoriented x 3 Progress - PLAN OF CARE/RESULTS Progress/Plan/Lab Results: Vital Signs - 8 hr 01/17/19 14:24 Temperature 99.1 F Pulse Rate 83 Respiratory Rate 20 Blood Pressure 116/88 O2 Sat by Pulse Oximetry 94 L Laboratory Results - last 24 hr 01/17/19 14:53 POC Glucose 321 H Orders Category Date Time Status cxr [CHEST-1 VIEW] [RAD] Stat Exams 01/17/19 14:49 Ordered BLOOD CULTURE [BLDCUL] Stat Lab 01/17/19 14:49 Uncollected CBC WITH ELECTRONIC DIFF [HEME] Stat Lab 01/17/19 14:57 Ordered COMPREHENSIVE METABOLIC PANEL [CHEM] Stat Lab 01/17/19 14:57 Ordered TROPONIN T Stat Lab 01/17/19 14:57 Ordered URINALYSIS W/POSS RFLX CULT [URINALYSIS] Stat Lab 01/17/19 14:49 Uncollected URINE CULTURE [RM] Stat Lab 01/17/19 14:49 Uncollected 0.9% Sodium Chloride Inj [Ns] 1,000 ml Med 01/17/19 14:50 Active IV 999 mls/hr Acetaminophen [Tylenol] Med 01/17/19 14:50 Discontinued 1,000 mg PO NOW ONE Result Diagrams: 01/17/19 14:54 01/17/19 14:54 - REASSESSMENT Reassessment #1 Time Reassessed: 15:12 Status: unchanged Reassessment #2 Time Reassessed: 17:34 Status: unchanged - EKG 1 Time of EKG reading by physician:: 14:53 EKG Read and Signed by:: Sundar Sheldon EKG Interpretation (*Must complete 3 of following elements*): Abnormal Rate: 86 Rhythm: sinsu rhythm with 1st degree Av block [place]: normal QRS: other (nonspecific intraventricular block) [place] Interval: normal ST Wave: normal Comments: possible lateral infarct, age undetermine - XRAY 1 XRAY: Bilateral XRAY Study: Chest Impression: See EMR Report (EXAM: CHEST-1 VIEW HISTORY: fever TECHNIQUE: Chest single view COMPARISON: None 2018 FINDINGS: The lungs are well expanded. The heart is mildly prominent. Left pacemaker. The vessels are not distended. There are no infiltrates. No effusion identified. IMPRESSION: No pneumonia Electronically signed by Jeanmarie Mcbride 01/17/2019 3:17 PM 01/17/191516 Interpreting Physician: Jeanmarie Mcbride MD Dictated Date/Time: 01/17/191516 cc: Sundar Sheldon MD; None,PCP) Departure - Departure Date of Disposition Decision: 01/17/19 Time of Disposition Decision: 18:27 DIAGNOSIS: Fever Qualifiers: Fever type: unspecified Qualified Code(s): R50.9 - Fever, unspecified Hypotension Qualifiers: Hypotension type: unspecified hypotension type Qualified Code(s): I95.9 - Hypotension, unspecified Disposition: ADMITTED INPATIENT 09 Certified Medical Emergency: Emergent Condition: Stable Referrals and Follow-Ups: None,PCP [Primary Care Provider] - - Critical Care Note This patient required my direct & personal management of CC.: Yes Total Time (mins): 36 Critical Care Statement: This patient required my direct personal management to treat or rule out processes, the absence of which, could potentiallly result in sudden, clinically significant life or limb threatening deterioration. Attestation - Physician/ [place] Attestation Patient care was provided by Advanced Practice Provider:: No The physician spent face to face time with patient:: Yes Advanced Practice Provider documentation review:: Supervising physician onsite and consulted in the evaluation and care of this patient. The physician did have a face to face encounter with the patient. This chart was documented by the indicated scribe, (Gladys Lawler Scribe) and accurately reflects the services I performed and decisions made by me, Sundar Sheldon MD, as attested by the provider's signature.
[2019-01-17] MEDS ORDERED: NITROGLYCERIN SL PRN (20:00)
[2019-01-17] MEDS ORDERED: ENTRESTO 49 MG-51 MG TABLET PO SCH (21:00)
--- NOTE | 2019-01-17 22:26 | Diag Imaging Result Doc PS360 ---
EXAM: CT HEAD W/O CONTRAST INDICATION: AMS TECHNIQUE: This exam was performed using automated exposure control, adjustment of mA or kV according to patient size, and/or use of iterative reconstruction technique. COMPARISON: None. FINDINGS: There is a tiny chronic appearing lacunar infarct involving the caudate on the right. There is no definite acute infarct given the limited sensitivity of CT versus MRI. There is no discrete intracranial mass, mass effect, or intracranial hemorrhage. The surrounding soft tissues and bony structures are essentially unremarkable. IMPRESSION: Tiny chronic appearing lacunar infarct involving the caudate on the right. No definite acute intracranial pathology by CT. Electronically signed by Andrew Tracy 01/17/2019 10:23 PM
[2019-01-17] MEDS ORDERED: NS 1,000 ML IV SCH (22:33)
--- NOTE | 2019-01-17 22:58 | HISTORY AND PHYSICAL ---
CHIEF COMPLAINT: Altered mental status, per the . HISTORY OF PRESENT ILLNESS: Mr. Benoit is a 68-year-old male who presented to the emergency room with his at the bedside. states that he woke up this morning confused. Apparently, he has had a decreased appetite and fever for around the last day. He is on antibiotics, I believe Keflex, related to a wound on his anterior right lower extremity. It appears to be healing, has mild erythema around the border, but not necessarily appear to be cellulitis but he has been febrile which was confirmed on arrival with a temperature of 101.3. Chest x-ray and urine were unremarkable. We will place the patient in for further evaluation and treatment. PAST MEDICAL HISTORY: Ischemic cardiomyopathy with an ejection fraction of 30%, systolic heart failure again with an ejection fraction of 30%. He has had a pacemaker with ICD placed, diabetes mellitus type 2, hypertension, sarcoidosis, also hypertension, and anemia and osteoarthritis. PREVIOUS SURGICAL HISTORY: Mediastinoscopy for sarcoid biopsy, pacemaker/ICD placement, right knee arthroscopy. SOCIAL HISTORY: Occasional drinks. No tobacco or illicit drugs. FAMILY HISTORY: I believe it is positive for hypertension and congestive heart failure in his father. ALLERGIES: No known drug allergies. HOME MEDICATIONS: Keflex 500 mg p.o. b.i.d., diclofenac 1% gel 2 g topically t.i.d., glipizide 5 mg p.o. b.i.d., amiodarone 200 mg p.o. daily, aspirin 81 mg p.o. daily, atorvastatin 40 mg p.o. daily, carvedilol 6.25 mg p.o. b.i.d., vitamin D3 one tablet p.o. daily, nitroglycerin 0.3 mg tablet 1 p.o. as directed p.r.n. chest pain, potassium chloride 20 mEq daily, Entresto 49/51 one p.o. b.i.d., torsemide 20 mg p.o. b.i.d. REVIEW OF SYSTEMS: Fourteen point review of systems conducted with the patient. He is positive for fever, chills, malaise, weakness, confusion and loss of appetite. No mention of any chest pain, cough, headaches, nausea, vomiting, shortness of breath, bowel or bladder symptoms. At any rate, 14-point review of systems was conducted. Other pertinent positives are listed above in the HPI. All other systems reviewed and found to be negative. PHYSICAL EXAMINATION: VITAL SIGNS: Temperature maximum 101.3, pulse 77, respirations 12, blood pressure 129/72, oxygen saturation 95% on room air. GENERAL: Pleasant 68-year-old male lying in the ER stretcher. He is alert and disoriented times 3. He would make eye contact but did not answer questions, is in no acute distress. HEENT: Head is atraumatic, normocephalic. Pupils equal, round, react to light. Extraocular eye movement is intact. Sclerae are anicteric. Conjunctiva is mildly pale. Oral mucosa is somewhat dry. NECK: Supple. No JVD. No thyromegaly. Trachea is midline. No cervical lymphadenopathy. CARDIAC: S1, S2 appreciated, 2/6 systolic ejection murmur noted. No gallops. No rubs. LUNGS: Clear to auscultation bilaterally. No rhonchi, wheezes or rale. They are slightly diminished. Symmetrical rise and fall with respirations. ABDOMEN: Soft, nondistended, nontender. Bowel sounds present all 4 quadrants, normoactive. No pulsatile mass. No organomegaly. EXTREMITIES: No clubbing, cyanosis. One-plus nonpitting edema bilateral lower extremities. Two- plus pedal pulses. INTEGUMENTARY: Warm, dry and intact. It is noted right lower extremity has an anterior wound that appears to be healing, mild erythema. No drainage was noted. NEUROLOGICAL: He is awake and alert. He makes eye contact and does focus on as she speaks and then again at provider while he is speaking. However, he is nonverbal. He has a tremor in his right hand which is noted. Disoriented times 3. DIAGNOSTIC DATA: Chest x-ray: Pacemaker is in place. No pulmonary edema. No infiltrate. LABORATORY DATA: WBC 12.35. Hemoglobin 10.9. Hematocrit 32.9. Platelet count 119. Sodium 135. Potassium 4.4. Chloride 95. Carbon dioxide 26. BUN 26. Creatinine 1.4. Glucose 306. Urine unremarkable. CT of the head is pending without contrast. ASSESSMENT AND PLAN: 1. Questionable metabolic versus toxic encephalopathy. Patient is febrile and altered. He is nonverbal at this time. Could be related to cellulitis. He does have diabetes mellitus with hyperglycemia as well as chronic renal insufficiency. I am unsure if this is related to uremia. He was given fluids in the emergency room because he was mildly hypotensive. He did appear to be fluid volume depleted, according to the ER provider. We will continue to give fluids, check CT of his head, continue to monitor laboratory data. 2. Questionable cellulitis. We will give Zyvox and Zosyn. As vancomycin and Zosyn are more nephrotoxic, we will renally dose Zosyn. Again, the wound area appears to be healing. I am unsure if this is the source of infection or if this is possibly viral in nature. Patient did not have complaints consistent with flu but we will check a flu swab. 3. Fluid volume depletion. See above. 4. Chronic renal insufficiency, aware. See above. 5. Nonischemic cardiomyopathy with systolic heart failure. Ejection fraction around 30%. We will monitor patient's fluid volume status. We will be mindful not to overload him. We will continue home medications. We will follow up on CT scan of patient's head and flu swab. Further recommendations per patient clinical course. Dictated by ALPHONSE Rubin for Vinh Robertson MD I have performed a face to face diagnostic evaluation. Labs/ Xrays- reviewed. Exam- Chest -clear, CV- regular , Neuro- non verbal. A/P- AMS, cellulitis, dehydration.- Admit, neuro checks, IV abx, IV fluids. Dr. Robertson cc: ALPHONSE Rubin MD [facility]
[2019-01-17] MEDS: LOVENOX SUBQ SCH (23:47)
[2019-01-17] MEDS: COREG PO SCH (23:47)
[2019-01-17] MEDS: ZYVOX PO SCH (23:47)
[2019-01-18] MEDS ORDERED: CALMOSEPTINE OINTMENT TOP PRN (01:06)
[2019-01-18] MEDS ORDERED: MORPHINE IV ONE (01:20)
[2019-01-18] MEDS: TYLENOL PO PRN (01:33)
[2019-01-18] MEDS: ZOSYN 2.25 GM in NS 50 ML IV SCH ×4 (01:47→18:12)
[2019-01-18] MEDS: HUMALOG SUBQ SCH ×5 (06:21→20:19)
[2019-01-18 06:46] LABS: INR 1.35; PROTIME 16.9 Seconds (11.0-16.0)
[2019-01-18 06:54] LABS: ALB/GLOB RATIO 0.9; ALBUMIN 2.5 g/dL (3.5-5.0); CALCIUM 9.5 mg/dL (8.8-10.2); CREATININE 1.5 mg/dL (0.7-1.2); POTASSIUM 4.1 mmol/L (3.5-5.1); TOTAL BILIRUBIN 2.54 mg/dL (0.20-1.00); TOTAL PROTEIN 5.3 g/dL (6.3-8.3)
--- NOTE | 2019-01-18 07:09 | EKG Report ---
Test Performed on : 01/17/2019 2:53:27 PM Test Reason : ED. NO EKG ORDER FOR MUSE Blood Pressure : / mmHG Vent. Rate : 086 BPM Atrial Rate : 086 BPM P-R Int : 236 ms QRS Dur : 162 ms QT Int : 470 ms P-R-T Axes : 091 258 054 degrees QTc Int : 562 ms Suspect arm lead reversal, interpretation assumes no reversal Sinus rhythm. with 1st degree AV block. Nonspecific intraventricular block Possible Lateral infarct , age undetermined Abnormal ECG When compared with ECG of 14-OCT-2018 07:19, Sinus rhythm. has replaced Electronic ventricular pacemaker Vent. rate has increased BY 31 BPM Unconfirmed Result
[2019-01-18 07:36] LABS: BASO# 0.02 X1000 (0.0-0.2); BASO% 0.2 % (0.0-0.8); EOS# 0.04 X1000 (0.0-0.7); EOS% 0.4 % (0.0-10.0); HEMATOCRIT 26.2 % (42.0-52.0); HEMOGLOBIN 8.3 g/dL (14.0-18.0); LYMPH# 1.86 X1000 (1.2-3.4); LYMPH% 17.4 % (20.5-51.1); MCH 28.2 PG (27-31); MCHC 31.7 g/dL (33-37); MCV 89.1 FL (81-99); MONO# 0.94 X1000 (0.11-0.59); MONO% 8.8 % (1.7-9.3); MPV 12.1 FL (7.4-10.4); NEUT# 7.86 X1000 (1.4-6.5); NEUT% 73.2 % (42.2-75.2); PLT 112 X1000 (130-400); RBC 2.94 XMIL (4.7-6.1); RDW 14.8 % (11.5-14.5); WBC 10.72 X1000 (4.8-10.8)
[2019-01-18] MEDS ORDERED: NS 1,000 ML IV ONE (08:22)
[2019-01-18] MEDS ORDERED: KLOR-CON PO SCH (09:00)
[2019-01-18] MEDS ORDERED: DEMADEX PO SCH (09:00)
[2019-01-18] MEDS ORDERED: LIPITOR PO SCH (09:00)
--- NOTE | 2019-01-18 11:29 | Diag Imaging Result Doc PS360 ---
EXAM: US GB < RUQ (LIMITED) HISTORY: elevated total bili and leukocytosis TECHNIQUE: Right upper quadrant ultrasound COMPARISON: None. FINDINGS: Normal pancreas. No ascites in the right upper corner. Normal inferior vena cava. Normal aorta. No aneurysm. No focal hepatic normality. Normal right kidney. No hydronephrosis. No gall stones. Small amount of sludge. The gallbladder wall is not thickened. The common bile duct measures 4 mm. IMPRESSION: Small amount of gallbladder sludge, otherwise normal exam. Electronically signed by Jeanmarie Mcbride 01/18/2019 11:27 AM
[2019-01-18] MEDS: VITAMIN D PO SCH (11:34)
[2019-01-18] MEDS: ZYVOX PO SCH ×2 (11:34→22:06)
[2019-01-18] MEDS: COREG PO SCH (11:35)
[2019-01-18] MEDS: CORDARONE PO SCH (11:35)
[2019-01-18] MEDS: ASPIRIN PO SCH (11:36)
--- NOTE | 2019-01-18 14:11 | ECHO REPORT ---
ORDER DATE: 01/18/2019 ECHOCARDIOGRAPHIC MEASUREMENTS: 1. Interventricular septum 1.1. 2. Left ventricular posterior wall 1.1. 3. Diastolic diameter 6.3. 4. Left atrium 4.8. 5. Aorta 3.6. SUMMARY: 1. Aortic valve leaflets are trileaflet. 2. Pulmonic valve was normal. 3. Tricuspid valve was normal. 4. Mitral valve was normal. 5. Pacing leads are noted in the right chamber. 6. There is mild tricuspid regurgitation. Peak velocity across the tricuspid valve was 3.9 m/sec. 7. Pulmonary artery systolic pressure of 70 mmHg. 8. There is severe pulmonary arterial hypertension. 9. There is moderate mitral regurgitation. 10. Peak velocity across the aortic valve less than 2 m/sec. 11. There is no aortic stenosis or regurgitation. 12. Dilated left ventricle with severely reduced systolic function. Estimated ejection fraction of 25 to 30%. There is severe global hypokinesis. 13. There is no pericardial effusion. 1. Dilated left ventricle with severely reduced systolic function. 2. Estimated ejection fraction of 25 to 30%. 3. There is severe global hypokinesis. 4. There is pulmonary arterial hypertension. 5. There is moderate tricuspid regurgitation. cc: Shad Medellin MD
[2019-01-18] MEDS: LEVOPHED 8 MG in D5 1/2 NS 250 ML IV SCH (15:08)
--- NOTE | 2019-01-18 15:52 | PROGRESS NOTE ---
DATE: 01/18/2019 INTERVAL HISTORY: Patient admitted with sepsis with unclear source. Started on Zyvox and Zosyn. Fever up to 101.3 overnight and again to 101.1 this morning. Worsening hypotension this morning. I initially gave small fluid bolus with initial mild improvement but then blood pressure worsened again with systolics in the 60s. Initiating Levophed and moving to ICU. Patient denying dyspnea, increased cough, chest pain, dysuria, abdominal pain, nausea, vomiting, diarrhea. When asked why he was brought to the hospital he is actually a little vague on that. Source of sepsis remains unclear so getting CT chest, abdomen, pelvis to see if we can identify a likely source. REVIEW OF SYSTEMS: Twelve point review of systems negative except as per interval history. LABS: WBC 10.7, hemoglobin 8.3, hematocrit 26.2, platelets 112,000, INR 1.35. Sodium 137, potassium 4.1, BUN 28, creatinine 1.5, glucose 175 to 321, total bilirubin 2.5, AST 39, ALT 23, alkaline phosphatase 112, troponin 0.07, CK 190, lactate 1.6, repeat 1.4, TSH 1.3. Urinalysis unremarkable aside from some mild protein and glucose. IMAGING: Head CT with tiny chronic lacunar infarct on the right caudate. Abdominal ultrasound with small amount of gallbladder sludge but no other pathologic process, gallbladder wall is not thickened and common bile duct is not dilated. Echocardiogram with EF 25 to 30, pulmonary pressure 70, moderate tricuspid regurg, severe global hypokinesis. VITALS: T-max 101.3 degrees, pulse 55, blood pressure 78/38, O2 saturation 94% on 2 L by nasal cannula. PHYSICAL EXAMINATION: General: No acute distress. Vitals as above. HEENT: Normocephalic, atraumatic, minimally dry mucous membranes. No cervical adenopathy. Cardiovascular: Minimally bradycardic but regular. Pulmonary: Slight bibasilar crackles but otherwise clear to auscultation bilaterally. Abdomen: Soft, nontender, nondistended. Bowel sounds positive. Extremities: Peripheral pulses intact. Trace bilateral lower extremity edema. Neurologic: Cranial nerves grossly intact. Globally weak and slightly more pronounced in bilateral upper extremities but no focal deficits identified. Psychiatric: Normal mood and affect. Awake, alert, cooperative, oriented to person and place but not time. Skin: Ulcer on anterior right lower leg 4 to 5 cm across, some slight crusting but no active drainage. Not really any erythema, no warmth, no induration. No other rashes or lesions identified. ASSESSMENT AND PLAN: 1. Sepsis, septic versus cardiogenic shock, patient with fever and hypotension with unknown cause. Some concern for cellulitis on admission but his leg really does not look that bad. I doubt that is the source of his issues. Chest x-ray clear and urinalysis unremarkable. Patient without much in the way of symptoms that would be helpful in pinpointing source. Starting on pressors as above. Obtaining CT chest, abdomen pelvis to look for other source of infection. Given fevers primary concern is for septic shock but given his severe cardiomyopathy with ejection fraction 25 to 30 and severe global hypokinesis, cardiogenic shock is possible. Will hold blood pressure reducing medications for now. If the CT does not show any clear source of infection then cardiogenic shock may be more likely and will likely consult Cardiology. 2. Chronic systolic congestive heart failure. Repeat ejection fraction on this hospitalization shows slightly worse cardiac function with ejection fraction 25 to 30. Has been 30 to 35 in the past. 3. Chronic kidney disease 3, creatinine essentially stable today, monitor. 4. Diabetes mellitus, mild elevations but overall acceptable control on current regimen, monitor. 5. Mild metabolic encephalopathy. Patient largely awake, cooperative but some mild confusion. May be baseline dementia but could also be metabolic encephalopathy related to his above metabolic issues. 6. Hyperbilirubinemia. Patient with elevated bilirubin with essentially normal other liver function tests. INR minimally elevated 1.35. No known history of liver issues. Ultrasound showing a small amount of gallbladder sludge without any other liver or gallbladder pathology. May be due to passive congestion related to his heart failure but will go ahead and check hepatitis panel. 7. Anemia likely anemia of chronic disease but decreased from admission. No signs or symptoms of active bleeding. Will check iron studies and monitor closely.
--- NOTE | 2019-01-18 17:28 | Diag Imaging Result Doc PS360 ---
EXAM: CT THORAX/ABD/PELVIS W/O CON INDICATION: fever/sepsis of unknown origin. TECHNIQUE: This exam was performed using automated exposure control, adjustment of mA or kV according to patient size, and/or use of iterative reconstruction technique. COMPARISON: None. FINDINGS: CHEST: There are mild patchy fibrotic changes at the peripheries of both lungs. There is subsegmental atelectasis and/or scarring at both lung bases. There is a calcified granuloma in the right lower lobe. There is an 8 mm noncalcified nodule in the right middle lobe on image 68 of series 3. This may represent a noncalcified granuloma. However, follow-up based on Fleischner Society criteria is suggested to assure stability. There is no pleural fluid collection and no pneumothorax. There is cardiomegaly. There are calcified mediastinal and hilar lymph nodes indicating prior granulomatous disease. There is no evidence of significant mediastinal lymphadenopathy, otherwise. There is no evidence of acute osseous abnormality involving the thoracic skeleton. ABDOMEN/PELVIS: There is excessive motion artifact, which limits visualization of fine details. The gallbladder is hyperdense. This could represent hyperdense sludge or perhaps vicarious excretion of contrast if there has been a recent contrast enhanced study. The liver, spleen, pancreas, and adrenal glands are grossly unremarkable as imaged. The kidneys are unremarkable as imaged. There is a Venegas catheter in the urinary bladder and the bladder is nondistended. The appendix is normal. There is a small rectal fecal impaction. No focal bowel wall thickening or bowel obstruction is identified. The remainder of the GI tract is essentially unremarkable. No focal inflammatory changes, free abdominal gas, or free fluid is identified. There is no evidence of acute osseous abnormality. IMPRESSION: 1.Patchy fibrotic changes and subsegmental atelectasis associated with both lungs as described. 2.8mm noncalcified nodule in the right middle lobe that may represent a noncalcified granuloma. Consider follow-up based on Fleischner Society criteria. 3.Cardiomegaly. 4.Hyperdense gallbladder. Please see above discussion. 5.Small rectal fecal impaction. 6.Other incidental/nonacute findings detailed above. Electronically signed by Andrew Tracy 01/18/2019 5:26 PM
[2019-01-18] MEDS: LOVENOX SUBQ SCH (22:07)
[2019-01-19] MEDS: ZOSYN 2.25 GM in NS 50 ML IV SCH ×4 (00:36→18:37)
[2019-01-19] MEDS: HUMALOG SUBQ SCH ×7 (00:37→23:37)
[2019-01-19] MEDS: LEVOPHED 8 MG in D5 1/2 NS 250 ML IV SCH ×2 (05:43→20:55)
[2019-01-19 06:48] LABS: BASO# 0.01 X1000 (0.0-0.2); BASO% 0.1 % (0.0-0.8); EOS# 0.07 X1000 (0.0-0.7); EOS% 0.8 % (0.0-10.0); HEMOGLOBIN 8.1 g/dL (14.0-18.0); IMM GRAN# 0.03 X1000 (0.0-0.04); IMM GRAN% 0.3 % (0.0-0.5); LYMPH# 1.46 X1000 (1.2-3.4); LYMPH% 16.5 % (20.5-51.1); MCH 28.4 PG (27-31); MCHC 31.2 g/dL (33-37); MCV 91.2 FL (81-99); MONO# 0.78 X1000 (0.11-0.59); MONO% 8.8 % (1.7-9.3); NEUT# 6.51 X1000 (1.4-6.5); NEUT% 73.5 % (42.2-75.2); PLT 113 X1000 (130-400); RBC 2.85 XMIL (4.7-6.1); RDW 14.7 % (11.5-14.5); WBC 8.86 X1000 (4.8-10.8)
[2019-01-19 07:34] LABS: AGAP 18; ALB/GLOB RATIO 0.6; ALBUMIN 2.3 g/dL (3.5-5.0); ALKALINE PHOSPHATASE 128 U/L (32-122); BUN 25 mg/dL (8-22); CALCIUM 9.3 mg/dL (8.8-10.2); CHLORIDE 102 mmol/L (98-107); COSMO 282; CREATININE 1.2 mg/dL (0.7-1.2); ESTIMATED GFR > 60; GLUCOSE 128 mg/dL (70-104); GOT 42 U/L (10-34); GPT 25 U/L (10-44); POTASSIUM 4.2 mmol/L (3.5-5.1); SODIUM 138 mmol/L (136-145); TCO2 18 mmol/L (25-35); TOTAL BILIRUBIN 2.35 mg/dL (0.20-1.00); TOTAL PROTEIN 6.3 g/dL (6.3-8.3)
[2019-01-19] MEDS: ASPIRIN PO SCH (08:19)
[2019-01-19] MEDS: CORDARONE PO SCH (08:20)
[2019-01-19] MEDS: NORCO-5 PO PRN ×2 (08:20→19:51)
[2019-01-19] MEDS: ZYVOX PO SCH ×2 (08:20→20:55)
[2019-01-19] MEDS: VITAMIN D PO SCH (08:20)
[2019-01-19 09:40] LABS: INR 1.28; PROTIME 16.2 Seconds (11.0-16.0)
[2019-01-19] MEDS: ATIVAN IV PRN (10:39)
--- NOTE | 2019-01-19 10:58 | Diag Imaging Result Doc PS360 ---
EXAM: KNEE 3 VIEWS RIGHT 01/19/2019 HISTORY: knee pain and swelling TECHNIQUE: Right knee three views COMMENT: There is severe degenerative change with narrowing of the joint spaces generally and osteophyte formation. There is some atherosclerotic calcification in the superficial femoral and popliteal arteries. Compared to 08/19/2018, the pleural effusion which was present previously is no longer visible, otherwise the appearance of the knee has not changed significantly. IMPRESSION: Osteoarthritis. Electronically signed by Wil Kraus 01/19/2019 10:56 AM
--- NOTE | 2019-01-19 13:10 | PROGRESS NOTE ---
DATE: 01/19/2019 INTERVAL HISTORY: The patient remains on pressors with Levophed. I have actually had to go up on the dose slightly. Afebrile overnight. Heart rate and respiratory rate normal. Patient complaining primarily of bilateral knee pain which is somewhat chronic but worsened. The patient remains somewhat confused and occasionally mildly agitated. I got a little more information from the patient's . She states he does not normally have significant issues with confusion, and that is one of the things that prompted her to bring him in. REVIEW OF SYSTEMS: Twelve point review of systems negative except as per interval history. LABS: WBC 8.8, hemoglobin 8.1, hematocrit 26.0, platelets 113,000. Sodium 138, potassium 4.2, bicarb 18, BUN 25, creatinine 1.2, glucose 128, bilirubin 2.35, direct bilirubin 1.1, AST 42, ALT 25, alkaline phosphatase 128. Troponin 0.03, down from 0.07. Pre-albumin 6. TSH 1.3. Last lactate 2.0. IMAGING: CT of chest, abdomen, and pelvis with patchy fibrotic changes and atelectasis in both lungs. Tiny right middle lobe nodule favored to be granuloma, cardiomegaly, gallbladder with likely sludge in it but nondistended, with no inflammatory changes. Right knee x-ray with severe degenerative changes but no acute pathology. Echocardiogram showing worsening of known heart failure with EF 25% to 30% and severe global hypokinesis as well as significant pulmonary artery hypertension at 70. OBJECTIVE: Vital signs: T-max 99.6 degrees, pulse 64, respirations 20, blood pressure 118/62, O2 saturation 100% on 2 L by nasal cannula. General: No acute distress. Chronically ill-appearing. HEENT: Normocephalic, atraumatic. Moist mucous membranes. No cervical adenopathy. Cardiovascular: Regular rate and rhythm. Pulmonary: Minimal bibasilar crackles, unchanged. Otherwise, clear to auscultation bilaterally. Abdomen: Soft, nontender, nondistended. Bowel sounds positive. Extremities: Peripheral pulses intact. Small right lower extremity wound as below. Mild tenderness at both knees. A little bit of an effusion of the right knee, most pronounced medially, with some tenderness but without erythema or warmth. Neurologic: Cranial nerves grossly intact. Mild global weakness but no focal deficits. Psychiatric: Normal mood and affect at the time of my exam. Awake, alert, pretty cooperative, and most answers are appropriate but oriented only to person. Skin: Shallow ulcer on anterior right lower leg, similar. Still no drainage, erythema, or warmth. ASSESSMENT AND PLAN: 1. Shock. The patient is admitted with fever and progressive hypotension, placed on Levophed. Concern for septic versus cardiogenic shock. Initial presentation with fever and encephalopathy caused us to initially favor septic, but no significant source of infection has been identified, and on repeat echocardiogram, the patient's heart failure does appear to have progressed since he was last evaluated, so this may be more cardiogenic shock. Continue antibiotics for now. CT of chest, abdomen and pelvis was largely unremarkable. Does have elevated bilirubin and some gallbladder sludge on ultrasound and CT, but AST, ALT and alkaline phosphatase are normal to minimally elevated. He has no abdominal tenderness. No abdominal symptoms, and on imaging, he had no thickening of the gallbladder wall, pericholecystic fluid, expansion of the gallbladder duct or other sign of an infected gallbladder. Also evaluated the patient's knees given complaints of pain. He does have a little bit of swelling primarily in the right knee, which is slightly tender, but no erythema or warmth. Obtained x-ray which really just showed osteoarthritis. If symptoms persist, may consider asking Orthopedics to take a look at it, but it really does not look like a septic joint at this time. Asking Cardiology to see for further recommendations regarding possible cardiogenic shock. Continue pressors as needed. Monitor closely in the ICU. Blood cultures negative thus far. 2. Chronic systolic congestive heart failure. Repeat EF slightly worse than previous with EF 25% to 30%. No sign of volume overload. In fact, the patient appeared somewhat dry on admission, but progressive heart failure may be contributing to his hypotension. 3. Chronic kidney disease 3, creatinine largely stable. Monitor. 4. Diabetes. Acceptable control on current regimen. Monitor. 5. Metabolic encephalopathy. The patient is awake and alert and largely cooperative but confused intermittently and pulling at lines. Nursing reports occasional agitation. The patient's QTC is profoundly prolonged, so we will not use antipsychotics if we can help it. We will start some low-dose Ativan on a p.r.n. basis to see if we can calm him without using restraints. 6. Hyperbilirubinemia. The patient is with elevated bilirubin with essentially normal other LFTs. High INR, minimally elevated. Ultrasound as above with some sludge, but no other sign of obstruction or cholecystitis. Lab findings may be due to passive congestion related to heart failure. Hepatitis panel pending. 7. Anemia. Likely anemia of chronic disease, essentially stable since just after admission. Iron studies pending. TIME SPENT: Forty minutes of critical care time spent immediately available to the patient, examining patient, reviewing labs and imaging, and making medical decisions. MTDD
[2019-01-19] MEDS ORDERED: 1/2 NS 250 ML IV ONE (15:50)
[2019-01-19] MEDS ORDERED: ALBUMIN 25% IV ONE (16:06)
[2019-01-19] MEDS: 1/2 NS 1,000 ML IV SCH (16:17)
--- NOTE | 2019-01-19 16:32 | CARDIOLOGY CONSULTATION ---
DATE: 01/19/2019 Mr. Juan Benoit is a 68-year-old, -[place] gentleman who is admitted with complaints of having had fever. When he came to the emergency room his temperature was 101.3 degrees. His states that his temperature at home prior to admission was 103.7. He also became a little delirious and was confused. At the time of my examination, he says he feels slightly better. He was noted to be hypotensive, started on a Levophed drip. His gram-negative rods noted in his blood cultures. The full culture report still pending. He has significant cardiac history. I had seen him earlier this year in our office. He denies any chest pain. I had a detailed discussion with the patient's . The main problem is over the last month he has lost 20 pounds and he has significant loss of appetite as well. He does not complain of any blood in his stools or any nausea or vomiting. He has not had any associated with fevers. There was no cough or expectoration. REVIEW OF SYSTEMS: Fourteen point review of systems was done. GI System: As above. Cardiovascular System: There is no chest pain. There is no worsening shortness of breath. There is no orthopnea. The patient complains of weakness. system: There is no dysuria or hematuria. PAST MEDICAL HISTORY: 1. Ischemic cardiomyopathy with ejection fraction of 30%. 2. Systolic heart failure. 3. AICD placement. 4. Diabetes mellitus. 5. Hypertension. 6. History of sarcoidosis. 7. History of hypertension. 8. Anemia. 9. Osteoarthritis. PAST SURGICAL HISTORY: He has had mediastinoscopy for sarcoid related biopsies. Has had right knee arthroscopy in the past. SOCIAL HISTORY: There is no history of illicit drug or tobacco abuse. ALLERGIES: He is not known to be allergic to any medication. HOME MEDICATION: 1. Entresto 45/50 one tablet b.i.d. 2. Torsemide 20 b.i.d. 3. Nitroglycerin. 4. Vitamin D. 5. Coreg 6.25 mg b.i.d. 6. Atorvastatin 40. 7. Enteric-coated aspirin. 8. Amiodarone 200. 9. Glipizide 5. In the hospital he is receiving Levophed drip. He is on Zosyn, Zyvox and his antihypertensives medications have been held. PHYSICAL EXAMINATION: On examination, on the Levophed drip his blood pressure is 131/68. Neck: Jugular venous pressure was normal. Cardiac: First and second heart sounds were heard. There was no S3 gallop. Respiratory System: Normal air entry. There is no crepitations or rhonchi. Abdomen: Was soft. Nontender. There was no guarding or rigidity. Bowel sounds were heard. LABORATORY EXAMINATION: Hemoglobin 8.1, hematocrit 26, platelet count of 113,00, MCV 91. WBC when he came in was 12.35, hemoglobin 10.8, hematocrit 32, platelet count of 119,000. Sodium 138, potassium 4.1, BUN 25, creatinine 1.2. Troponin was negative. Pre-albumin 6, albumin 2.3. ASSESSMENT AND PLAN: 1. Mr. Juan Benoit is a 68-year-old, gentleman who has cardiomyopathy status post AICD placement, history of congestive heart failure, LV dysfunction comes in with fevers, chills, loss of appetite and loss of weight, for the last 1 month he has lost 20 pounds. His recorded a temperature of 103.7 degrees at home. When he came in his temperature was 101.3 degrees. Blood cultures revealed gram-negative rods. We will consult infectious disease Dr. Benoit for his opinion. 2. As far as his persistent hypotension is concerned, he is clinically dry and malnourished as well. We will give him IV fluid bolus. In addition we will give him albumin. I will give him a bolus IV of 250 mg and give him half normal saline 75 miles an hour for 2 L. When we try to DC the Levophed, his blood pressure drops. I suspect this is secondary to hypovolemia. His antihypertensive medications in addition, medications for his severe LV dysfunction are on hold. 3. He has significant hypoalbuminemia and pre-albumin is low probably secondary to malnutrition; however, these symptoms are recent. His states that he has lost 20 pounds in the last 1 month. There is no obvious GI etiology to account for that. His chest x-ray was unremarkable and his CT scan of his abdomen pelvis revealed hyperdense gallbladder; otherwise, there was scattered granuloma and nodules were noted in the lungs. He does carry a history of sarcoidosis. 4. If his blood pressure is stable with the IV fluids and albumin, we will try to taper and DC the Levophed if possible. Thank you for the consult. We will follow hospital course. cc: hSad Medellin MD
[2019-01-19] MEDS: LOVENOX SUBQ SCH (21:49)
[2019-01-20] MEDS: ZOSYN 2.25 GM in NS 50 ML IV SCH ×2 (00:22→06:27)
[2019-01-20] MEDS: ATIVAN IV PRN ×3 (00:22→21:15)
[2019-01-20] MEDS: HUMALOG SUBQ SCH ×6 (03:09→23:47)
[2019-01-20] MEDS: 1/2 NS 1,000 ML IV SCH ×2 (03:10→06:22)
[2019-01-20] MEDS: TYLENOL PO PRN ×2 (04:49→23:54)
--- NOTE | 2019-01-20 06:30 | Diag Imaging Result Doc PS360 ---
EXAM: CHEST-PORTABLE HISTORY: HF TECHNIQUE: Portable chest COMPARISON: 01/17/2019 FINDINGS: The lungs are well expanded. The heart remains enlarged. Left pacemaker. No pleural effusions identified. Mild pulmonary edema. IMPRESSION: Cardiomegaly with pulmonary edema. Electronically signed by Jeanmarie Mcbride 01/20/2019 6:28 AM
[2019-01-20] MEDS: NORCO-5 PO PRN ×2 (08:25→20:57)
[2019-01-20] MEDS: VITAMIN D PO SCH (08:26)
[2019-01-20] MEDS: ASPIRIN PO SCH (08:26)
[2019-01-20] MEDS: ZYVOX PO SCH (08:26)
[2019-01-20] MEDS: CORDARONE PO SCH (08:26)
[2019-01-20 08:27] LABS: BASO# 0.02 X1000 (0.0-0.2); BASO% 0.1 % (0.0-0.8); EOS% 0.7 % (0.0-10.0); HEMATOCRIT 24.4 % (42.0-52.0); HEMOGLOBIN 7.9 g/dL (14.0-18.0); IMM GRAN# 0.06 X1000 (0.0-0.04); IMM GRAN% 0.4 % (0.0-0.5); LYMPH# 1.49 X1000 (1.2-3.4); LYMPH% 10.9 % (20.5-51.1); MCH 28.5 PG (27-31); MCHC 32.4 g/dL (33-37); MCV 88.1 FL (81-99); MONO# 1.22 X1000 (0.11-0.59); MONO% 8.9 % (1.7-9.3); MPV 10.3 FL (7.4-10.4); NEUT# 10.79 X1000 (1.4-6.5); PLT 175 X1000 (130-400); RBC 2.77 XMIL (4.7-6.1); RDW 14.4 % (11.5-14.5); WBC 13.68 X1000 (4.8-10.8)
[2019-01-20 08:37] LABS: AGAP 15; BUN 18 mg/dL (8-22); CALCIUM 9.8 mg/dL (8.8-10.2); CHLORIDE 100 mmol/L (98-107); COSMO 274; ESTIMATED GFR > 60; GLUCOSE 137 mg/dL (70-104); SODIUM 135 mmol/L (136-145); TCO2 20 mmol/L (25-35)
[2019-01-20] MEDS: ROCEPHIN 2 GM in NS 50 ML IV SCH (09:00)
--- NOTE | 2019-01-20 09:47 | INFECTIOUS DISEASE CONSULT REP ---
DATE: 01/20/2019 CONCLUSION: The patient has a Morganella bacteremia. The exact origin of the bacteremia is uncertain to me. About the only abnormality I could find that could serve as an origin for a Morganella bacteremia, which is a gram-negative magaly, would be gallbladder disease. On CT scan, the gallbladder is described as hyperdense. However, on the ultrasound, there was only a small amount of sludge in the gallbladder and there was not any wall thickening. RECOMMENDATIONS: I have discontinued Zosyn and Zyvox, and put the patient on Rocephin. I have also ordered a HIDA scan and I have put a consult in for Dr. Cabrales to see the patient and see if he thinks that the gallbladder is the source of the patient's gram-negative magaly bacteremia. The patient does have a wound on his right leg but it has an eschar. There is no surrounding erythema and I doubt that is the cause of the patient's Morganella bacteremia. The patient will require 6 weeks of antibiotics in case his pacemaker/defibrillator became infected hematogenously. DISCUSSION: Patient is unable provide a history. No family member is present. The information I got was from the computer. The patient was admitted to the hospital initially with an altered mental status. He also was having fever. He was on antibiotics when he got sick, namely Keflex, secondary to a wound on the right lower extremity. The wound does appear to be healing. The patient's creatinine is 1.0. GFR is greater than 60. Alkaline phosphatase is 128. Urinalysis was negative for bacteria and white cells. One out of two blood cultures grew Morganella. Repeat blood cultures are pending. Urine culture was negative. Chest x-ray shows cardiomegaly and pulmonary edema. The patient's right knee shows findings of osteoarthritis. CT scan of the chest shows fibrosis and atelectasis. There also was a right middle lobe nodule. The patient, on CT scan, as mentioned above, showed a hyperdense gallbladder but on ultrasound, there was only a small amount of sludge and the wall of the gallbladder was not thickened. PAST MEDICAL HISTORY: The patient has ischemic cardiomyopathy with an ejection fraction of 30%. He also has congestive heart failure. He has cardiac arrhythmia which has required placement of a permanent pacemaker and defibrillator in the left chest. The patient also has diabetes mellitus, hypertension, sarcoidosis, anemia, and osteoarthritis, hyperlipidemia. PAST SURGICAL HISTORY: Positive for placement of a pacemaker/defibrillator in the chest, a mediastinoscopy for sarcoid biopsy, and finally a right knee arthroscopy. SOCIAL HISTORY: The patient occasionally drinks alcoholic beverages. He does not smoke cigarettes or use illicit drugs. FAMILY HISTORY: Positive for hypertension and congestive heart failure. ALLERGIES: The patient has no known drug allergies. MEDICINES TAKEN AT HOME: Include amiodarone, atorvastatin, carvedilol, Keflex, diclofenac, glipizide, nitroglycerin, Entresto, and torsemide. PHYSICAL EXAMINATION: Vital Signs: Temperature is 99 degrees, pulse 81, respirations 24, blood pressure 90/62, patient weighs 181 pounds. General: This is a chronically ill- appearing, elderly male. He is in no acute distress. Head, Eyes, Ears, Nose, and Throat: His eyes were closed. He did once open his eyelids but he closed them right away. There is no drainage from the nose or ears. I got only a slight glimpse of the patient's oral cavity. I did not see any white patches. Neck: No apparent pain with movement. Lungs: Clear to auscultation. Cardiovascular: Regular heart rate. Abdomen: Soft and nontender. Neurologic: The patient is sitting up in bed. His eyes are closed but he did move his arms to request. Extremities: The patient's right leg has a wound on it. It has got an eschar. There is no surrounding erythema and the wound is dry. The patient's right knee is enlarged but it only shows changes of osteoarthritis and there is no knee joint effusion. Integument: No rash noted. Thorax: The pacemaker/defibrillator site in the left chest is not swollen or tender. Thank you for the consult. cc: MD KELSEY Nieves
--- NOTE | 2019-01-20 11:05 | PROGRESS NOTE ---
DATE: 01/20/2019 INTERVAL HISTORY: The patient remains afebrile, but still requiring Levophed to maintain pressors. Still quite confused. States this knee pain is slightly better. Some agitation last night that improved with low-dose Ativan, but a little more somnolent this morning. REVIEW OF SYSTEMS: Limited by patient's mental status but negative aside from knee pain. LABORATORY DATA: WBC 13.6, hemoglobin 7.9, hematocrit 24.4, platelets 175,000. Sodium 135, potassium 4, bicarb 20, BUN 18, creatinine 1.0, glucose 137. IMAGING: Chest x-ray with mild pulmonary edema, but no other acute process. OBJECTIVE: Vital Signs: T-max 99.3 degrees, pulse 78, respirations 22, blood pressure 108/57, O2 saturation is 99% on room air. General: No acute distress. Chronically ill appearing. HEENT: Normocephalic, atraumatic. Moist mucous membranes. No cervical adenopathy. Cardiovascular: Regular rate and rhythm. Pulmonary: Minimal bibasilar crackles stable and otherwise remains clear to auscultation. Abdomen: Soft, nontender, nondistended. Bowel sounds positive. Extremities: Peripheral pulses intact. Small right lower extremity wound, stable. Mild tenderness of both knees, right greater than left. Right knee with some medial swelling but feels more bony than fluid related. No erythema or warmth. Neurologic: Cranial nerves grossly intact. Mild global weakness but no focal deficits, although patient is only intermittently cooperative. Psychiatric: Sleepy but arouses easily, intermittently cooperative. Remains oriented to person only. Skin: Shallow ulcer on anterior right lower leg, stable with no drainage, erythema, or warmth. ASSESSMENT AND PLAN: 1. Shock. The patient admitted with fever and worsening hypotension. Placed on Levophed which he has remained on. Concern for septic versus cardiogenic shock. Initial presentation with fever and encephalopathy favored septic. The patient was placed on empiric antibiotics. Since then, no clear source of infection has been identified, but patient's blood cultures are positive for Morganella morganii. CT chest, abdomen and pelvis was largely unremarkable aside from some minimal gallbladder sludge with no wall thickening, inflammatory changes or ductal dilation. Patient without any abdominal tenderness. No nausea, vomiting, diarrhea, or other GI symptom. Some minimal swelling of the right knee, but no erythema or warmth. X-ray shows advanced degenerative changes, which likely account for his pain there. Does not feel like he has enough fluid on there to even tap if we wanted to. Low suspicion for septic joint. The patient's echo does show worsening heart failure, raising possibility of cardiogenic shock. Discussed with Infectious Disease and despite lack of abdominal symptoms and ambivalence of his liver labs, they consider the gallbladder to be the most likely source of infection at this time. We will get Surgery on board, although they will probably want him a little more stable before considering taking him to the OR. Continue Levophed and empiric antibiotics and monitor closely. Repeat blood cultures drawn yesterday. No growth to date. 2. Chronic systolic congestive heart failure. Repeat ejection fraction on this hospitalization slightly worse than previous 25 to 30. Minimal edema on chest x-ray without any hypoxia or respiratory symptoms. No sign of congestive heart failure exacerbation at this time but could be contributing to blood pressure issues. Cardiology consulted and they are giving him a little more fluid as well as some albumin. 3. Chronic kidney disease III. Creatinine actually improved with hydration to better than his presumed baseline. Creatinine down to 1.0 today. Continue to monitor. 4. Diabetes, essentially controlled, monitor. 5. Metabolic encephalopathy. The patient awake, generally alert, although a little less this morning. Intermittently cooperative but remains quite confused. Had some more significant agitation yesterday. Considered Haldol, but on his EKG, QTc is well over 500, so attempting to avoid QT prolonging agents. I gave him low-dose Ativan which did seem to help his agitation, although he is a little somnolent this morning. Discussed with nursing to try to minimize sedating medications as much as we can. 6. Hyperbilirubinemia. The patient with elevated bilirubin with essentially normal AST, ALT, alkaline phosphatase. Gallbladder imaging showing some sludge, but no other sign of cholecystitis. Given the lack of other source of infection, however, considering cholecystitis as a diagnosis. Infectious Disease on board and consulting Surgery as above. 7. Anemia, likely anemia of chronic disease, essentially stable. Monitor.
[2019-01-20] MEDS ORDERED: LASIX IV ONE (13:23)
--- NOTE | 2019-01-20 15:00 | GENERAL SURGERY CONSULTATION ---
DATE: 01/20/2019 REQUESTING PHYSICIAN: Dr. Benoit. REASON FOR CONSULTATION: Bacteremia, possible gallbladder as a source. HISTORY OF PRESENT ILLNESS: A 68-year-old gentleman who presented initially with altered mental status. He was found to be septic with the addition of metabolic versus toxic encephalopathy. There is no family at the bedside to give further information, and the patient, at this point, is nonverbal. It should be noted that his blood cultures, 1 of 2, have grown back Morganella Morgagni. He has had several imaging, which is inconclusive for an exact etiology, but one of the places could be his gallbladder. There was some thicker sludge noted on the CT scan. Again, the patient is not verbal at this time, and so I cannot give a full physical exam, but he did not seem to grimace when I pushed his right upper quadrant. He is still on Levophed for severe hypotension, and he has a significant past medical history of congestive heart failure. I was asked to weigh an opinion. Past medical history, past surgical history, social, family, allergies, home medications, and review of systems all reviewed from previous dictations. The patient is nonverbal. PAST MEDICAL HISTORY: Includes ischemic cardiomyopathy with ejection fraction of 30%, systolic heart failure, history of pacemaker, diabetes mellitus type 2, hypertension, sarcoidosis, anemia, and osteoarthritis. PAST SURGICAL HISTORY: Includes mediastinoscopy for sarcoid biopsy, pacemaker placement, right knee surgery. SOCIAL HISTORY: Occasional alcohol by report. FAMILY HISTORY: Positive for hypertension and congestive heart failure. ALLERGIES: None known. MEDICATIONS: Current medications and home medications reviewed. REVIEW OF SYSTEMS: Unable to obtain secondary to the patient's mental status and no family members at the bedside. PHYSICAL EXAMINATION: Vital Signs: The patient's current temperature is 96.9, blood pressure is 108/57 on Levophed, pulse 78. General: Minimally interactive, male, looks chronically ill. HEENT: Normocephalic, atraumatic. Pupils equal, round, reactive to light. Mucous membranes moist. Oropharynx benign. Neck: Supple. Trachea midline. Cardiovascular: Regular rate and rhythm. The patient is on Levophed. Lungs: Grossly clear. Abdomen: Soft, nontender, nondistended. Extremities: Wound to right leg. Neurologic: The patient is not cooperative at this time. Vascular: All extremities perfused. LABORATORY DATA: White blood count 13, hematocrit 24, platelet count 175,000. Previous labs had showed that his bilirubin was elevated with a slight elevation in his alkaline phosphatase, normal ALT. ASSESSMENT AND PLAN: A 68-year-old gentleman with bacteremia with the possible source being his gallbladder. 1. Bacteremia. At this time, agree with aggressive antibiotics as done by Dr. Benoit. 2. Possible gallbladder as a source. At this time, agree with a HIDA scan. The patient is a difficult exam, so unsure if he actually has abdominal tenderness. He would be high risk for any kind of surgery given his congestive heart failure and being on pressors, so may just need to be able to treat him medically. Will need to follow up with the HIDA scan to make further recommendations, but at this time, continue supportive care. I appreciate the consult. cc: Taqueria Cabrales MD
[2019-01-20] MEDS: LOVENOX SUBQ SCH (22:03)
[2019-01-21] MEDS: HUMALOG SUBQ SCH ×6 (03:05→23:16)
--- NOTE | 2019-01-21 07:00 | GENERAL SURGERY PROGRESS NOTE ---
DATE: 01/21/2019 SUBJECTIVE: Nursing staff reports that he had a fever, and he was given Tylenol, but it seemed to respond. He is off pressors now. The patient is still nonverbal. OBJECTIVE: Vital Signs: The patient's current temperature is 99.7 degrees, pulse 87, blood pressure 106/64. General: No acute distress. Cardiovascular: Regular rate and rhythm. Lungs: Grossly clear. Abdomen: Soft, nontender in the right upper quadrant. ASSESSMENT AND PLAN: A 68-year-old gentleman with bacteremia with unknown source. 1. Bacteremia. At this time, continue current intravenous antibiotics. 2. Possible gallbladder source at this time. Follow up with HIDA scan. He does not really have any abdominal tenderness. He would be high risk for any kind of surgical intervention. 3. Runs of ventricular tachycardia at this point. He has had an episode of ventricular tachycardia, but it has resolved. Will defer to the hospitalist. cc: Taqueria Cabrales MD
[2019-01-21 07:07] LABS: BASO# 0.02 X1000 (0.0-0.2); BASO% 0.1 % (0.0-0.8); EOS# 0.06 X1000 (0.0-0.7); EOS% 0.4 % (0.0-10.0); HEMATOCRIT 22.4 % (42.0-52.0); HEMOGLOBIN 7.2 g/dL (14.0-18.0); IMM GRAN% 0.7 % (0.0-0.5); LYMPH# 1.29 X1000 (1.2-3.4); LYMPH% 9.4 % (20.5-51.1); MCH 28.5 PG (27-31); MCHC 32.1 g/dL (33-37); MCV 88.5 FL (81-99); MONO# 1.29 X1000 (0.11-0.59); MONO% 9.4 % (1.7-9.3); NEUT# 11.01 X1000 (1.4-6.5); PLT 197 X1000 (130-400); RBC 2.53 XMIL (4.7-6.1); RDW 14.6 % (11.5-14.5); WBC 13.77 X1000 (4.8-10.8)
[2019-01-21 07:19] LABS: AGAP 15; BUN 17 mg/dL (8-22); CALCIUM 9.9 mg/dL (8.8-10.2); CHLORIDE 103 mmol/L (98-107); COSMO 283; CREATININE 0.9 mg/dL (0.7-1.2); ESTIMATED GFR > 60; GLUCOSE 133 mg/dL (70-104); POTASSIUM 3.8 mmol/L (3.5-5.1); SODIUM 140 mmol/L (136-145); TCO2 22 mmol/L (25-35)
[2019-01-21] MEDS ORDERED: NS 500 ML IV SCH (09:00)
--- NOTE | 2019-01-21 09:20 | Diag Imaging Result Doc PS360 ---
EXAM: HIDA SCAN W/O EJECT. FRACTION HISTORY: cholecystitis TECHNIQUE: Nuclear medicine HIDA scan COMPARISON: None. FINDINGS: 5.4 mCi Choletec administered. There is normal uptake in the liver. Normal emptying into the small bowel. No filling of the gallbladder through 90 minutes. IMPRESSION: Abnormal exam with no filling of the gallbladder through 90 minutes. Electronically signed by Jeanmarie Mcbride 01/21/2019 9:18 AM
[2019-01-21 09:50] LABS: HEPATITIS PROFILE ACUTE SEE COMMENTS
[2019-01-21] MEDS: CORDARONE PO SCH (09:51)
[2019-01-21] MEDS: VITAMIN D PO SCH (09:51)
[2019-01-21] MEDS: ASPIRIN PO SCH (09:51)
[2019-01-21] MEDS: ROCEPHIN 2 GM in NS 50 ML IV SCH (09:58)
[2019-01-21 10:35] LABS: IRON SATURATION 22 %; TIBC 112 ug/dL; TOTAL IRON 25 ug/dL (53-167); UNBOUND IRON 87 ug/dL (112-346)
--- NOTE | 2019-01-21 13:23 | PROGRESS NOTE ---
DATE: 01/21/2019 INTERVAL HISTORY: The patient is off pressors since late last night. Maintaining blood pressure so far. Remains markedly confused despite no sedating medications in the last 12 hours. He does arouse and follow some commands. Continues to complain of joint pain, but no new complaints. NPO this morning for HIDA scan. REVIEW OF SYSTEMS: Severely limited by patient's mental status. LABORATORY DATA: WBC 13.7, hemoglobin 7.2, hematocrit 22.4, platelets 197,000. Sodium 140, potassium 3.8, BUN 17, creatinine 0.9, glucose 123 to 268, iron 25, TIBC 112, iron saturation 22, ferritin 1324. IMAGING: HIDA scan showing no filling of the gallbladder after 90 minutes. VITAL SIGNS: T-max 101 degrees, pulse 91, respirations 27, blood pressure 112/69, O2 saturation 100% on room air. PHYSICAL EXAMINATION: General: No acute distress. Chronically ill appearing. Vital Signs: As above. HEENT: Normocephalic, atraumatic. Moist mucous membranes. No cervical adenopathy. Cardiovascular: Slightly tachycardic but regular. Pulmonary: Slight bibasilar crackles unchanged, largely clear to auscultation. Abdomen: Soft, nontender, nondistended. Bowel sounds positive. Extremities: Peripheral pulses intact. Small right lower extremity wounds, stable without erythema, drainage, or induration. Neurologic: Cranial nerves grossly intact. No clear focal deficits, but patient only intermittently cooperative. Psychiatric: Asleep, but arouses fairly easily. Oriented to person at best. Less cooperative today. Skin: Shallow ulcer on anterior right leg still with no drainage, erythema, or warmth. Essentially unchanged. ASSESSMENT AND PLAN: 1. Shock. The patient admitted with fever and worsening hypertension placed on Levophed which was weaned off early this morning. Concern for septic versus cardiogenic shock. At this point, septic shock is favored. The blood culture is growing Morganella morganii. Infectious Disease following and has changed antibiotic to Rocephin based on those sensitivities. Initial workup unrevealing for source of infection but patient with minimal gallbladder sludge on CT. There was no wall thickening, inflammatory changes, or ductal dilation and other than elevated bilirubin patient's other LFTs were pretty unimpressive, but no other source has been identified, and HIDA scan this morning was markedly abnormal. Surgery on board, but reluctant to proceed with surgery given patient's severe illness and severe congestive heart failure as below. We will continue empiric therapy and monitor closely. Leukocytosis had resolved at one point but back up a little bit over the last couple days. Did have fever overnight as well. Repeat blood cultures no growth so far. 2. Chronic systolic congestive heart failure. Repeat EF on this hospitalization slightly worse than previous at 25 to 30. Still with some minimal edema on last chest x-ray but oxygenation good. No sign of exacerbation at this time. Continue to monitor. The patient dehydrated on admission, so we have not been trying to diurese him. 3. Chronic kidney disease 3. The patient appeared to be chronic kidney disease 3 based on history, but creatinine actually improved all the way down to 0.9 with some very gentle hydration. Now on minimal maintenance fluids, but otherwise trying to keep him where he is. 4. Diabetes. Reasonable control, overall. Continue to monitor. 5. Metabolic encephalopathy. The patient wakes up and is generally alert when he does, although little more somnolent today. He has remained markedly confused though. Per his , this was an acute change and not something that they had seen at home. Avoiding antipsychotics given significantly prolonged QTc. Minimizing other sedating medications as much as we can but has had required few doses of low-dose Ativan when he becomes significantly agitated. 6. Hyperbilirubinemia, possibly due to gallbladder issue as above. Monitor. 7. Anemia, favor anemia of chronic disease, but has trended down fairly significantly. Iron studies do not really show any deficiency. But given critical illness, we will go ahead and transfuse him 1 unit. We will check fecal occult blood test (FOBT) if he has a bowel movement.
--- NOTE | 2019-01-21 14:57 | INFECTIOUS DISEASE PROGRESS NO ---
DATE: 01/21/2019 HISTORY OF PRESENT ILLNESS: The patient has a Morganella bacteremia, the exact origin of which I am uncertain. About the only abnormality I could find that could serve as an origin for the bacteremia is cholecystitis. MEDICATIONS: The patient is receiving Rocephin. This is day 2 of treatment with the antibiotic with day 1 being the first day that the repeat blood cultures were sterile. PHYSICAL EXAMINATION: Vital Signs: Earlier, the temperature was 101.8, currently is 99, pulse 90, respirations 24, blood pressure 119/67. General: This is a chronically ill-appearing elderly male. He lies in bed and does not appear to be in any acute distress, but if you move him around much, he sometimes screams out. It seems that movement of his knees caused him to have pain and also when I moved his arms, he screamed out in pain. HEENT: He keeps his eyes closed most of the time. There is no drainage from the ears. I could not get a good look into his mouth. Neck: No meningismus. Thorax: Patient has a pacemaker/defibrillator in place on the left part of his chest. The site is not fluctuant or tender and there is no drainage coming from the site. Lungs: Clear to auscultation. Cardiovascular: Heart rate is regular. Abdomen: Soft but did seem to be tender in the right upper quadrant. Neurologic: Patient has decreased level of consciousness. He most of the time keeps his eyes closed. He did not respond to verbal stimuli. He did not answer questions. He did not move his extremities to request. He does not have any tremor. Bones/joints/muscles: There was a lot of deformity to the patient's knees, but I did not feel anything that felt like a fluid collection in his legs. LAB AND X-RAY: CBC shows a white count of 13,770, hemoglobin 7.2, platelet count 197,000. Creatinine is 0.9. GFR is greater than 60. Hepatitis panel is nonreactive. Repeat blood cultures are sterile. ASSESSMENT AND PLAN: The patient has a Morganella bacteremia. I am going to continue with Rocephin. The patient is scheduled today to have a HIDA scan. COMORBIDITIES: The patient is elderly. He has diabetes mellitus and sarcoidosis. He also has osteoarthritis. He has a pacemaker/defibrillator in place in his chest. cc: Chavo Benoit MD
[2019-01-21] MEDS: TYLENOL PO PRN (19:58)
[2019-01-21] MEDS: TYLENOL PR PRN (21:03)
[2019-01-21] MEDS: NORCO-5 PO PRN (21:42)
[2019-01-21] MEDS: LOVENOX SUBQ SCH (23:16)
[2019-01-22] MEDS: HUMALOG SUBQ SCH ×6 (03:25→23:50)
[2019-01-22] MEDS: NORCO-5 PO PRN ×3 (03:25→22:55)
[2019-01-22 07:17] LABS: BASO# 0.03 X1000 (0.0-0.2); BASO% 0.2 % (0.0-0.8); EOS# 0.04 X1000 (0.0-0.7); EOS% 0.3 % (0.0-10.0); HEMATOCRIT 25.5 % (42.0-52.0); HEMOGLOBIN 8.2 g/dL (14.0-18.0); IMM GRAN# 0.15 X1000 (0.0-0.04); IMM GRAN% 0.9 % (0.0-0.5); LYMPH# 1.47 X1000 (1.2-3.4); LYMPH% 9.2 % (20.5-51.1); MCH 28.7 PG (27-31); MCHC 32.2 g/dL (33-37); MCV 89.2 FL (81-99); MONO# 1.53 X1000 (0.11-0.59); MONO% 9.6 % (1.7-9.3); MPV 10.2 FL (7.4-10.4); NEUT% 79.8 % (42.2-75.2); PLT 222 X1000 (130-400); RBC 2.86 XMIL (4.7-6.1); RDW 14.9 % (11.5-14.5); WBC 15.92 X1000 (4.8-10.8)
[2019-01-22 07:38] LABS: AGAP 14; BUN 26 mg/dL (8-22); CALCIUM 10.1 mg/dL (8.8-10.2); CHLORIDE 105 mmol/L (98-107); COSMO 289; ESTIMATED GFR > 60; GLUCOSE 153 mg/dL (70-104); SODIUM 141 mmol/L (136-145); TCO2 22 mmol/L (25-35)
[2019-01-22] MEDS ORDERED: NS 250 ML IV ONE (07:41)
[2019-01-22] MEDS: CLINIMIX E 4.25%-5% SOLUTION 1,000 ML IV SCH (07:58)
[2019-01-22 07:59] LABS: BANDS 4 % (0-1); LYMPHS 8 % (21-51); NRBC 2 % (0-0); SEGS 88 % (42-75)
[2019-01-22] MEDS: ROCEPHIN 2 GM in NS 50 ML IV SCH (07:59)
[2019-01-22] MEDS: ASPIRIN PO SCH (08:01)
[2019-01-22] MEDS: CORDARONE PO SCH (08:01)
[2019-01-22] MEDS: VITAMIN D PO SCH (08:01)
--- NOTE | 2019-01-22 09:39 | PROGRESS NOTE ---
DATE: 01/22/2019 SUBJECTIVE: This patient is lying in bed. He is complaining basically of generalized weakness and pain, mostly his hands and feet, is really painful to touch. Apparently, he has been having problems with arthritis before. It looks like he was awake during the night but a little agitated. He got better after getting pain medication. He was drowsy though yesterday basically the whole day. His urine output has decreased and is dark. He is NPO but I have requested a swallow evaluation to see if he can tolerate p.o. Also, I have started this patient on Clinimix and I will give him a bolus of normal saline but I will be really careful with fluid overload since this patient has a low ejection fraction, so he will receive 250 mL of normal saline. OBJECTIVE: Vital Signs: Temperature 98 degrees, pulse 93, respiratory rate 21, blood pressure 93/72, oxygen saturation 99 on room air. HEENT: Head normocephalic. No trauma. PERRLA. Neck: Supple. No JVD. Central trachea. Chest: Mild crepitus and some crackles bilaterally, mostly at the bases. Abdomen: Soft, nontender, nondistended. No hepatosplenomegaly. Extremities: Small right lower extremity wounds with no erythema or signs of infection. He has some swelling, which I believe is chronic, at the level of the joints, mostly the hands. Neurological Examination: This patient is awake. He is following commands on and off but he falls asleep right away. He is able to say his name and he is able to say his date of except the year. He moves all 4 extremities spontaneously. Laboratory: WBC 15.9, hemoglobin 8.2, hematocrit 25.5, platelets 222,000. Sodium 141, potassium 4, chloride 105, bicarbonate 22, BUN 26, creatinine 1, glucose 156, calcium 10.1. ASSESSMENT AND PLAN: 1. Likely septic shock. He is no longer on vasopressors. We were concerned about cardiogenic shock at the beginning. Cardiology department evaluated this patient. Blood culture showed Morganella morganii but repeated blood culture has been negative so far for more than 2 days now. HIDA scan is abnormal but since this patient does not really have any abdominal tenderness and is a risk for surgery, we are just monitoring this patient for now. 2. Chronic systolic congestive heart failure. Repeated ejection fraction looks a little bit worse compared with the previous one at 25 to 30 percent. He is not on diuretics. He takes torsemide at home. Like I said, cardiology department is on board. I will give him a low dose of normal saline and also some Clinimix since this patient looks a bit dehydrated and his urine output dropped. His urine is concentrated as well. The last 8 hours, his urine output was around 150 mL. 3. Chronic kidney disease stage 3. I will give him gentle hydration with Clinimix. He has been nothing per oral. He is not getting any kind of diuretics right now. 4. Diabetes. Continue to monitor. 5. Metabolic encephalopathy. I believe he is getting a little bit better. He was able to say his name and date of , and he is following commands on and off. We will continue to monitor. 6. Elevated liver function tests. Like I mentioned before, we requested surgery department to evaluate this patient for gallbladder problems but his abdomen seems to be stable so for now, we will monitor. 7. Anemia of chronic disease, status post 1 unit of packed red blood cells. We will monitor for now. I will put this patient on proton pump inhibitors. 8. Generalized weakness and physical deconditioning. I have requested physical therapy to evaluate this patient to at least start range of motion in bed. 9. Arthritis. As per the patient, he takes aspirin at home and he is on aspirin here so we will continue with the same management. 10. Nutritional status. I have requested a swallow evaluation. We are going to start giving him some ice chips at the bedside right now and I have started this patient on Clinimix which I will discontinue if the patient is tolerating oral intake. His urine output decreased and the urine seems to be concentrated. CRITICAL CARE TIME: 35 minutes. cc: Dread Light MD
--- NOTE | 2019-01-22 10:23 | GENERAL SURGERY PROGRESS NOTE ---
DATE: 01/22/2019 SUBJECTIVE: Nursing staff reports no major issues although his blood pressure is somewhat labile when they gave him pain medicine. He has never really reporting right upper quadrant pain. He reports pain essentially almost everywhere else except that spot. He did have a HIDA scan yesterday did not show any obvious uptake into his gallbladder concerning for cholecystitis. OBJECTIVE: Vital Signs: Patient is currently afebrile. Most recent pulse 83, most recent blood pressure 77/54. General: Resting comfortably male. HEENT: Normocephalic, atraumatic. Pupils equal, round, reactive to light. Mucous membranes moist. Oropharynx benign. Neck: Supple, trachea midline. Cardiovascular: Regular rate and rhythm. Lungs: Grossly clear. Abdomen: Soft, nontender in the right upper quadrant. No peritoneal signs. Extremities: Moves all extremities. Neurologic: Grossly intact. Skin: No signs of jaundice. Vascular: All extremities perfused. LABORATORY: Currently pending but reviewed labs from yesterday. White blood cell count is 12, hematocrit is 22, platelet count 197,000. MICROBIOLOGY: Repeat blood cultures have not show any Morganella and there was only 1 of 2 on the original cultures. ASSESSMENT AND PLAN: A 68-year-old gentleman bacteremia of unknown source. 1. Bacteremia. At this time continue IV antibiotics. 2. Possible gallbladder is the source at this time. At this time HIDA scan was abnormal. The patient's blood pressure is labile. He just got off of pressors. Unsure how well he would tolerate any kind of major surgical intervention. 3. At this point, I would recommend just follow up to see if his repeat blood cultures come back and have an any bacteremia and we will try to hold off on any kind of surgery given his comorbidities. I will continue to follow. cc: Taqueria Cabrales MD
[2019-01-22] MEDS: COREG PO SCH ×2 (12:22→20:34)
[2019-01-22] MEDS: LASIX IV SCH (12:23)
[2019-01-22] MEDS: ZOSYN 3.375 GM in NS 50 ML IV SCH ×2 (16:51→22:36)
--- NOTE | 2019-01-22 22:17 | INFECTIOUS DISEASE PROGRESS NO ---
DATE: 01/22/2019 PRESENT ILLNESS: Mr. Benoit is being treated for a Morganella bacteremia. There is some gallbladder dysfunction as noted on the HIDA scan, which may be the source of his bacteremia. MEDICATIONS: He is receiving IV ceftriaxone 2 g every 24 hours as a single agent. PHYSICAL EXAMINATION: Vital Signs: Temperature is 98.3 degrees, pulse rate 86, respiratory rate 21, blood pressure 88/69, O2 saturation is 99% on room air. General: This is a chronically ill- appearing, elderly gentleman lying in the bed. His mentation is diminished. He does moan when touched in certain places. HEENT: Atraumatic, normocephalic. Oral mucous membranes are pink and moist. Conjunctivae are pale. Respiratory: Lung sounds are clear in the upper lobes. Diminished in the mid and bases. Excursion is diminished. Cardiovascular: Heart rate and rhythm are regular. Normal sinus rhythm on the monitor. Abdomen: Soft, flat, and tender to palpation. Bowel sounds are audible. Neurologic: He is lethargic, but will open his eyes and follows some commands. He does moan when his extremities are touched upper extremities or abdomen are touched. He is nonverbal at this point. LABORATORY AND X-RAY: Today his white count is 15.92, hemoglobin 8.2, platelet count 222,000. Creatinine is 1. Estimated GFR is greater than 60. His previous blood culture grew Morganella morganii in 1out of 2 cultures. The newest blood cultures have been sterile since 01/19/2019. HIDA scan, which was done yesterday, showed abnormal filling of the gallbladder through 90 minutes. ASSESSMENT AND PLAN: Mr. Benoit is being treated for Morganella bacteremia using Rocephin which we will continue at this time. The HIDA scan showed lack of filling of the gallbladder through 90 minutes; however, Dr. Cabrales mentions that he would be a poor surgery candidate. There is a leukocytosis today, so we will discontinue ceftriaxone and start him on Zosyn 3.375gm IV every 6 hours. A chest x-ray has already been ordered for in the morning. These plans have been discussed with and recommended by Dr. Benoit. COMORBIDITIES: For Mr. Benoit include that he is elderly with diabetes mellitus, sarcoidosis, osteoarthritis, ischemic cardiomyopathy, congestive heart failure and pacemaker with AICD. Dictated by ALPHONSE Martinez for Chavo Benoit MD cc: Chavo Benoit MD [facility]
[2019-01-22] MEDS: LOVENOX SUBQ SCH (22:36)
[2019-01-23] MEDS: CLINIMIX E 4.25%-5% SOLUTION 1,000 ML IV SCH ×2 (03:02→23:42)
[2019-01-23] MEDS: HUMALOG SUBQ SCH ×6 (03:11→23:43)
[2019-01-23] MEDS: ZOSYN 3.375 GM in NS 50 ML IV SCH ×4 (04:28→23:42)
[2019-01-23] MEDS: LEVOPHED 8 MG in D5 1/2 NS 250 ML IV SCH ×2 (05:21→19:08)
[2019-01-23 05:42] LABS: BASO# 0.02 X1000 (0.0-0.2); BASO% 0.1 % (0.0-0.8); EOS# 0.04 X1000 (0.0-0.7); EOS% 0.3 % (0.0-10.0); HEMATOCRIT 24.6 % (42.0-52.0); HEMOGLOBIN 7.8 g/dL (14.0-18.0); IMM GRAN# 0.16 X1000 (0.0-0.04); IMM GRAN% 1.1 % (0.0-0.5); LYMPH# 1.54 X1000 (1.2-3.4); MCH 28.2 PG (27-31); MCHC 31.7 g/dL (33-37); MCV 88.8 FL (81-99); MONO% 7.8 % (1.7-9.3); NEUT# 11.17 X1000 (1.4-6.5); NEUT% 79.7 % (42.2-75.2); PLT 241 X1000 (130-400); RBC 2.77 XMIL (4.7-6.1); RDW 15.1 % (11.5-14.5); WBC 14.03 X1000 (4.8-10.8)
[2019-01-23 06:02] LABS: AGAP 11; BUN 36 mg/dL (8-22); CALCIUM 10.1 mg/dL (8.8-10.2); CHLORIDE 108 mmol/L (98-107); COSMO 297; ESTIMATED GFR > 60; GLUCOSE 163 mg/dL (70-104); POTASSIUM 3.8 mmol/L (3.5-5.1); SODIUM 143 mmol/L (136-145); TCO2 24 mmol/L (25-35)
[2019-01-23] MEDS: PRILOSEC PO SCH (06:11)
--- NOTE | 2019-01-23 06:48 | Diag Imaging Result Doc PS360 ---
CHEST-PORTABLE - 01/23/2019 INDICATION: dyspnea COMPARISON: 01/20/2019 FINDINGS: Stable left-sided pacemaker. Stable cardiomegaly. Stable pulmonary vascular congestion. No infiltrates or significant edema. No pneumothorax or pleural effusion. IMPRESSION: Cardiomegaly and pulmonary vascular congestion. Electronically signed by Sid Carlson 01/23/2019 6:45 AM
[2019-01-23 07:27] LABS: LYMPHS 8 % (21-51); SEGS 92 % (42-75)
--- NOTE | 2019-01-23 07:40 | GENERAL SURGERY PROGRESS NOTE ---
DATE: 01/23/2019 SUBJECTIVE: Patient seems to be about the same. They did have to go back on pressors this morning. OBJECTIVE: Vital Signs: Patient is currently with a temperature of 99.8 degrees, pulse 79, blood pressure 86/48. General: No acute distress but really not interactive. Cardiovascular: On Levophed. Lungs: Some coarse sounds. Abdomen: No real tenderness in the right upper quadrant. LABORATORY: Pending for this morning. White blood cell count yesterday was 15, hematocrit 25, platelet count 222,000. He does have somewhat of a left shift. Microbiology still only 1 of 2 of his original culture shows Morganella. The most recent ones do not. ASSESSMENT AND PLAN: A 68-year-old gentleman with multiple comorbidities with bacteremia possibly from his gallbladder. 1. Bacteremia. At this time, continue IV antibiotics. 2. Possible cholecystitis as the source. At this time patient is not an ideal surgical candidate. Would like to still try to manage him with IV antibiotics as best we can. His most recent blood cultures have not been positive so hopefully we can treat him. 3. Multiple medical comorbidities currently being managed by the hospitalist service. cc: Taqueria Cabrales MD
--- NOTE | 2019-01-23 08:48 | PROGRESS NOTE ---
DATE: 01/23/2019 SUBJECTIVE: This patient is still lying in bed. His blood pressure dropped during the night and he was placed back on vasopressors. His MAP was in the low 50s. He is not answering any of my questions or following commands at this moment. He seems to be lethargic. He is grimacing with pain stimulation and moaning. He received some pain medication yesterday night. OBJECTIVE: Vital Signs: Temperature 99.8 degrees, pulse 87, respiratory rate 18, blood pressure 87/59, oxygen saturation 100% on room air. HEENT: Head normocephalic. No trauma. PERRLA. Neck: Supple. No JVD. No masses. Central trachea. Chest: Decreased breath sounds at the bases with some crepitus mostly on the left side. Abdomen: Soft, nontender, nondistended. No hepatosplenomegaly. Extremities: He has some upper extremity swelling, 2+, no lower extremity swelling. No clubbing, no cyanosis. Neurological: This patient is lethargic. He is not following commands or answering any of my questions today. He is grimacing and moaning with pain stimulation. LABORATORY: WBC 14, hemoglobin 7.8, hematocrit 24.6, platelet 241,000. Sodium 143, potassium 3.8, chloride 108, bicarbonate 24, BUN 36, creatinine 1, glucose 163, calcium 10.1. ASSESSMENT AND PLAN: 1. Septic shock. We put this patient back on vasopressors because the MAP was in the low 50s. We will continue with IV antibiotics. Blood culture showed Morganella morganii, but repeated blood culture has been negative so far for more than 2 days. HIDA scan is abnormal, but since this patient is not really having abdominal tenderness and he is at risk for surgery, we are just monitoring this patient for now. Probably he will get surgery in the future. Surgery on board. 2. Chronic systolic congestive heart failure. Repeated ejection fraction looks a little bit worse compared with the previous 1, at this moment it is at 25 to 30 percent. He is not on diuretics and actually I am giving him some fluids because he is not eating at all, even though he has able to tolerate p.o. I did a swallow evaluation yesterday. I will continue with Clinimix for now. His urine output seems to be better compared with yesterday. 3. Chronic kidney disease stage 3. I will continue with gentle hydration with Clinimix. If he is awake, we will start feeding this patient, but he has been refusing. 4. Diabetes. Continue to monitor. 5. Metabolic encephalopathy. He looks worse today compared with yesterday, probably he is still sleepy due to the pain medication that he received yesterday night. 6. Elevated LFTs, stable for now. We will monitor. 7. Anemia of chronic disease, status post 1 PRBC. Will monitor for now. Continue with proton pump inhibitors. 8. Generalized weakness and physical deconditioning. Continue physical therapy, probably they can do range of motion in bed. 9. Arthritis. He has been complaining of generalized pain especially hands and feet. We will continue with the same management for now. 10. Nutritional status. I requested a swallow evaluation yesterday. It has been done and he has been placed on a pureed diet, but he has been refusing to eat. I will continue with Clinimix for now. Hopefully, he will wake up and eat. His urine output is more clear today compared with yesterday. CRITICAL CARE TIME: 35 minutes. cc: Dread Light MD
[2019-01-23] MEDS: LASIX IV SCH (09:22)
[2019-01-23] MEDS: CORDARONE PO SCH (09:22)
[2019-01-23] MEDS: ASPIRIN PO SCH (09:23)
[2019-01-23] MEDS: VITAMIN D PO SCH (09:23)
[2019-01-23] MEDS: COREG PO SCH ×2 (09:24→20:21)
[2019-01-23] MEDS: TYLENOL PR PRN (09:36)
--- NOTE | 2019-01-23 09:49 | INFECTIOUS DISEASE PROGRESS NO ---
DATE: 01/23/2019 PRESENT ILLNESS: The patient has a Morganella bacteremia which I think originates from cholecystitis. MEDICATIONS: Yesterday I expanded the antibiotic coverage of the presumed cholecystitis from Rocephin to Zosyn. This is day 3 of treatment with antibiotics with day 1 being the first day that the patient's repeat blood cultures were negative. PHYSICAL EXAMINATION: Vital Signs: Temperature is 100.3 degrees, pulse 87, respirations 18, blood pressure 87/59. General: This is a chronically ill-appearing elderly male. He seems to be delirious. Head, Eyes, Ears, nose and Throat: No drainage noted from the nose or ears. I could not get a good look into his mouth. Neck: He does not seem to be having any pain when he moves his neck. Lungs: Clear to auscultation. Cardiovascular: Heart rate is regular. Abdomen: Soft. It does seem to be tender in the right upper quadrant. Neurologic: The patient seems delirious. Any time you move the patient he seems to moan. He does not have a tremor unless he is being touched or moved. Chest: The patient has a pacemaker present on the left side. The site is not swollen or draining. LAB AND X-RAY: [place] [address], hemoglobin 7.8, platelet count 241,000. Creatinine is 1.0, GFR is greater than 60. Hepatitis panel is nonreactive. HIDA scan shows no gallbladder filling. Repeat blood cultures are negative. ASSESSMENT AND PLAN: Patient has a Morganella bacteremia, which I think originates from cholecystitis. He will need 6 weeks of antibiotic therapy because he has a pacemaker which may have become infected hematogenously. COMORBIDITIES: The patient is elderly. He also is a diabetic and has sarcoidosis. He has a pacemaker/defibrillator in place in his chest. cc: Chavo Benoit MD
[2019-01-23] MEDS: TYLENOL PO PRN (13:14)
[2019-01-23] MEDS: NORCO-5 PO PRN (20:19)
[2019-01-23] MEDS: LOVENOX SUBQ SCH (23:42)
[2019-01-24] MEDS: NORCO-5 PO PRN (02:08)
[2019-01-24] MEDS: ATIVAN IV PRN ×2 (02:30→21:37)
[2019-01-24] MEDS: LEVOPHED 8 MG in D5 1/2 NS 250 ML IV SCH ×2 (04:22→16:27)
[2019-01-24] MEDS: HUMALOG SUBQ SCH ×5 (04:27→20:39)
[2019-01-24] MEDS: ZOSYN 3.375 GM in NS 50 ML IV SCH ×3 (04:27→16:27)
[2019-01-24] MEDS: PRILOSEC PO SCH (06:13)
[2019-01-24 07:22] LABS: BASO# 0.06 X1000 (0.0-0.2); BASO% 0.3 % (0.0-0.8); EOS# 0.26 X1000 (0.0-0.7); EOS% 1.2 % (0.0-10.0); HEMATOCRIT 26.5 % (42.0-52.0); HEMOGLOBIN 8.5 g/dL (14.0-18.0); IMM GRAN# 0.53 X1000 (0.0-0.04); IMM GRAN% 2.5 % (0.0-0.5); LYMPH# 1.72 X1000 (1.2-3.4); LYMPH% 8.2 % (20.5-51.1); MCH 28.7 PG (27-31); MCHC 32.1 g/dL (33-37); MCV 89.5 FL (81-99); MONO% 8.1 % (1.7-9.3); MPV 9.8 FL (7.4-10.4); NEUT# 16.59 X1000 (1.4-6.5); NEUT% 79.7 % (42.2-75.2); PLT 279 X1000 (130-400); RBC 2.96 XMIL (4.7-6.1); RDW 15.6 % (11.5-14.5); WBC 20.86 X1000 (4.8-10.8)
[2019-01-24 07:32] LABS: AGAP 12; ALB/GLOB RATIO 0.4; ALBUMIN 1.8 g/dL (3.5-5.0); ALKALINE PHOSPHATASE 92 U/L (32-122); BUN 33 mg/dL (8-22); CALCIUM 10.5 mg/dL (8.8-10.2); CHLORIDE 111 mmol/L (98-107); COSMO 303; ESTIMATED GFR > 60; GLUCOSE 164 mg/dL (70-104); GOT 23 U/L (10-34); GPT 12 U/L (10-44); MAGNESIUM 1.8 mg/dL (1.5-2.7); PHOSPHORUS 2.5 mg/dL (2.7-4.5); POTASSIUM 3.4 mmol/L (3.5-5.1); SODIUM 147 mmol/L (136-145); TCO2 24 mmol/L (25-35); TOTAL BILIRUBIN 1.37 mg/dL (0.20-1.00); TOTAL PROTEIN 6.1 g/dL (6.3-8.3)
[2019-01-24 08:04] LABS: EOS 1 % (1-10); LYMPHS 6 % (21-51); MONO 7 % (1-9); NRBC 1 % (0-0); SEGS 85 % (42-75)
[2019-01-24 08:05] LABS: HYPOCHROM 2+
[2019-01-24 08:06] LABS: ANISOCYTOSIS 1+; POLYCHROM 1+; TARGET CELLS 1+
[2019-01-24] MEDS: COREG PO SCH ×3 (08:23→23:27)
[2019-01-24] MEDS: CORDARONE PO SCH (08:23)
[2019-01-24] MEDS: VITAMIN D PO SCH (08:23)
[2019-01-24] MEDS: LASIX IV SCH (08:23)
[2019-01-24] MEDS ORDERED: POTASSIUM PHOSPHATE 15 MMOL in NS 250 ML IV ONE (08:30)
[2019-01-24] MEDS ORDERED: MORPHINE IV ONE (09:06)
[2019-01-24 09:07] LABS: INR 1.19; PROTIME 15.2 Seconds (11.0-16.0)
--- NOTE | 2019-01-24 09:16 | GENERAL SURGERY PROGRESS NOTE ---
DATE: 01/24/2019 SUBJECTIVE: Patient seems to be doing about the same. He is still on Levophed. OBJECTIVE: Vital Signs: Patient's current temperature 99.9 degrees, most recent pulse 75, most recent blood pressure 127/69. General: No acute distress. Resting. HEENT: Normocephalic, atraumatic. Pupils equal, round, reactive to light. Mucous membranes moist. Oropharynx benign. Neck: Supple. Trachea midline. Cardiovascular: Regular rate and rhythm. Lungs: Grossly clear. Abdomen: Soft, nontender, nondistended. Extremities: Moves all extremities. Neurologic: Patient is resting. Skin: No signs of jaundice. Vascular: All extremities perfused. LABORATORY DATA: Reviewed from yesterday. White blood cell count is 14 which is decreasing. ASSESSMENT AND PLAN: A 68-year-old gentleman with multiple medical comorbidities and bacteremia possibly from his gallbladder. 1. Bacteremia. At this time, continue IV antibiotics. 2. Possible cholecystitis as the source. At this time, patient is really not tender in his right upper quadrant, which is essentially the only place where he does not report tenderness. He is still on IV antibiotics which should cover his gallbladder. He is not an ideal surgical candidate. His comorbidities make him high risk for any surgery at this time and so hopefully we can just get him through this episode with IV antibiotics. Other option is cholecystostomy tube placement by radiology. 3. Multiple medical comorbidities currently being managed by the Hospitalist Service. cc: Taqueria Cabrales MD [facility]TDD
--- NOTE | 2019-01-24 10:36 | PROGRESS NOTE ---
DATE: 01/24/2019 SUBJECTIVE: The patient is still lying in bed. He is still on vasopressors. At this moment, he is really sleepy. He moves with pain stimulation. He seems to be lethargic. He received a dose of Ativan during the night because of agitation. OBJECTIVE: Vital Signs: Temperature is 99.9 degrees, pulse 74, respiratory rate 21, blood pressure 112/64, oxygen saturation 98 on room air. HEENT: Head normocephalic, no trauma, PERRLA. Neck: Supple. No JVD. No masses. Central trachea. Chest: Decreased breath sounds at the bases with some crepitus mostly on the left side. Abdomen: Soft, nontender, nondistended, no hepatosplenomegaly. Extremities: Some he has some upper extremity swelling around 2+. No lower extremity swelling, no clubbing, no cyanosis. Neurological: The patient is lethargic. He is grimacing and moaning with pain stimulation. LABORATORY: Pending lab work at this moment, glucose 153. ASSESSMENT AND PLAN: 1. Septic shock. Continue with vasopressors. Continue with IV antibiotics per Infectious Disease Department. Blood culture showed Morganella morganii, but repeated blood culture on 01/19/2019 has been negative so far. We will continue following the recommendations of Hematology/Oncology Department. We did a HIDA scan that is abnormal, and probably the gallbladder is a source of infection. 2. Chronic systolic congestive heart failure. Repeated ejection fraction looks a little bit worse compared with the previous one. At this moment is around 25 to 30 percent. He is not on diuretics. Actually, I am giving him fluids because he is not eating too much, at this moment he is lethargic. We will continue with Clinimix. 3. Chronic kidney disease stage 3. I will continue with gentle hydration with Clinimix. If he is awake, we will start feeding this patient. 4. Diabetes, continue to monitor. 5. Metabolic encephalopathy. He is still lethargic and he was agitated during the night so he received a dose of Ativan. 6. Elevated liver function tests, will monitor. 7. Anemia of chronic disease, status post 1 packed red blood cell. Will continue to monitor hemoglobin and hematocrit. 8. Generalized weakness and physical deconditioning. Continue physical therapy. 9. Arthritis. He has been complaining of generalized joint pain, especially hand and feet. We will continue with same management for now. 10. Nutritional status. I requested a swallow evaluation 2 days ago and he passed. He has been placed on a pureed diet, but he has been lethargic. For now we will continue with Clinimix. PLAN: Overall, his prognosis is poor due to his age and multiple comorbidities, current condition. Pending lab work at this moment. cc: Dread Light MD
--- NOTE | 2019-01-24 10:47 | Diag Imaging Result Doc PS360 ---
EXAM: CT DRAIN ABDOMEN ABSCESS W/IMG 01/24/2019 HISTORY: put in cholecystostomy tube TECHNIQUE: CT-guided percutaneous cholecystostomy COMMENT: Consent was previously obtained from the patient's family. Localization was performed with CT and following sterile preparation of the scan and administration 1% lidocaine to the skin and deeper soft tissues, a 10.2-Persian pigtail catheter was inserted by trocar technique into the gallbladder anteriorly through the edge of the liver. There are no immediate complications. Drainage is obtained of very thick black tarry material. A sample of this material was sent to the laboratory for bacteriological studies. The drain was secured to the skin with the provided adhesive device and the catheter was attached to an accordion drain. IMPRESSION: Successful CT-guided percutaneous cholecystostomy. Electronically signed by Wil Kraus 01/24/2019 10:45 AM
[2019-01-24] MEDS: D5W 1,000 ML IV SCH (14:00)
--- NOTE | 2019-01-24 14:54 | INFECTIOUS DISEASE PROGRESS NO ---
DATE: 01/24/2019 PRESENT ILLNESS: The patient has a Morganella bacteremia, which I think originates from cholecystitis. The patient's white blood cell count continues to increase. MEDICATIONS: The patient is on Zosyn. This is day 4 of treatment with antibiotics, with day 1 being the first day that the patient's blood cultures were sterile. PHYSICAL EXAMINATION: Vital Signs: Temperature is 100 degrees, pulse 74, respirations 21, blood pressure 112/64. General: This is a chronically ill-appearing, elderly male. He seems to be delirious. HEENT: No drainage from the nose or ears. Neck: The patient's neck did not appear to be stiff. Lungs: Clear to auscultation. Cardiovascular: Heart rate is regular. Abdomen: Soft, but it is tender. Neurologic: The patient screams out whenever he is touched or moved. He does not follow request to do anything. There is no tremor. Thorax: The patient has a combination pacemaker/defibrillator on the left side. The site is not swollen or draining. IMAGING AND LABORATORY DATA: CBC shows a white count of 20,860, hemoglobin 8.5, platelet count 279,000. Creatinine is 1. GFR is greater than 60. Liver function studies are normal. The patient's blood cultures turned negative on 01/19/2019. There is new no new radiographic study today. ASSESSMENT AND PLAN: I have discussed the case with Dr. Traylor and Dr. Cabrales. We all agree that the patient would not be a good surgical candidate, but we will try to have Radiology put in a cholecystostomy tube under CT guidance. I plan to continue Zosyn also. The patient will need a total of 6 weeks of antibiotics because he has a pacemaker which could have become hematogenously infected. COMORBIDITIES: The patient is elderly. He has diabetes mellitus, sarcoidosis, ischemic cardiomyopathy, congestive heart failure, and he has a pacemaker with a defibrillator. cc: Chavo Benoit MD
[2019-01-24] MEDS ORDERED: OFIRMEV 1000 MG/ISOTONIC SOLN 1,000 MG/100 ML BOTTLE IV ONE (15:41)
[2019-01-24] MEDS: CLINIMIX E 4.25%-5% SOLUTION 1,000 ML IV SCH (21:41)
--- NOTE | 2019-01-24 22:19 | Extremity Venous Study ---
PROCEDURE NAME: Venous U/S Left Arm - 01/23/2019 REQUESTING PHYSICIAN: Dr. Traylor. CLIENT INSIGHTS CONSULTANT: Erik. INDICATIONS: Arm pain and swelling. EQUIPMENT: [employer] Vivid E9 ultrasound system with a 9L-D transducer. FINDINGS: Images of the left upper extremity venous system with comparison shot to the right subclavian vein were obtained in both sagittal and transverse planes. Doppler was used to evaluate veins for spontaneity, phasicity, respiratory excursion and digital augmentation. Results: Normal venous compression, normal venous flow. No obvious superficial or deep venous thrombosis noted. INTERPRETATION: Essentially normal left upper extremity venous study. cc: MD Dread Montoya MD
[2019-01-25] MEDS: HUMALOG SUBQ SCH ×6 (01:14→21:02)
[2019-01-25] MEDS: LOVENOX SUBQ SCH ×2 (01:15→22:32)
[2019-01-25] MEDS: ZOSYN 3.375 GM in NS 50 ML IV SCH ×5 (01:15→22:32)
[2019-01-25] MEDS: LEVOPHED 8 MG in D5 1/2 NS 250 ML IV SCH ×3 (01:15→19:21)
[2019-01-25] MEDS: NORCO-5 PO PRN (01:57)
[2019-01-25] MEDS: ATIVAN IV PRN ×2 (02:44→23:49)
[2019-01-25 06:58] LABS: BASO% 0.4 % (0.0-0.8); EOS% 1.3 % (0.0-10.0); HEMATOCRIT 25.3 % (42.0-52.0); IMM GRAN# 1.06 X1000 (0.0-0.04); IMM GRAN% 4.5 % (0.0-0.5); LYMPH# 2.11 X1000 (1.2-3.4); LYMPH% 8.9 % (20.5-51.1); MCH 28.5 PG (27-31); MCHC 31.6 g/dL (33-37); MONO% 6.3 % (1.7-9.3); MPV 9.7 FL (7.4-10.4); NEUT# 18.73 X1000 (1.4-6.5); NEUT% 78.6 % (42.2-75.2); PLT 280 X1000 (130-400); RBC 2.81 XMIL (4.7-6.1); RDW 15.8 % (11.5-14.5)
[2019-01-25] MEDS: PRILOSEC PO SCH (07:19)
[2019-01-25 07:20] LABS: AGAP 13; ALB/GLOB RATIO 0.4; ALBUMIN 1.7 g/dL (3.5-5.0); ALKALINE PHOSPHATASE 96 U/L (32-122); BUN 28 mg/dL (8-22); CALCIUM 10.1 mg/dL (8.8-10.2); CHLORIDE 107 mmol/L (98-107); COSMO 296; CREATININE 0.9 mg/dL (0.7-1.2); ESTIMATED GFR > 60; GLUCOSE 195 mg/dL (70-104); GOT 27 U/L (10-34); GPT 13 U/L (10-44); POTASSIUM 3.6 mmol/L (3.5-5.1); SODIUM 143 mmol/L (136-145); TCO2 23 mmol/L (25-35); TOTAL BILIRUBIN 1.32 mg/dL (0.20-1.00); TOTAL PROTEIN 6.2 g/dL (6.3-8.3)
[2019-01-25 07:57] LABS: EOS 2 % (1-10); LYMPHS 12 % (21-51); SEGS 86 % (42-75)
[2019-01-25] MEDS: LASIX IV SCH (09:20)
[2019-01-25] MEDS: D5W 1,000 ML IV SCH (09:24)
--- NOTE | 2019-01-25 10:20 | PROGRESS NOTE ---
DATE: 01/25/2019 SUBJECTIVE: This patient is still lying in bed. He is still lethargic, but apparently he has been having some episodes where he is aware and he is able to talk. He is still complaining of generalized pain especially when his upper and lower extremities are moved even gently. He received a really low dose of Ativan 0.5 mg during the night because of agitation. OBJECTIVE: Vital Signs: Temperature 98.6 degrees, pulse 76, respiratory rate 27, blood pressure 122/63, and oxygen saturation 99 on room air. HEENT: Head normocephalic. No trauma. PERRLA. Neck: Supple. No JVD. No masses. Central trachea. Chest: Decreased breath sounds at the bases with some crepitus mostly on the left side. Abdomen: Soft and nontender. He does have a drain coming out from his abdomen with some serosanguineous dark secretion. Extremities: He has upper extremity swelling around 2+. No lower extremity swelling. No clubbing, no cyanosis. He is really tender to palpation. Neurological: The patient is lethargic. He is grimacing and moaning with pain stimulation and extremity movements. LABORATORY: WBC 23.8, hemoglobin 8, hematocrit 25.8, and platelets 280,000. Sodium 143, potassium 3.6, chloride 107, bicarbonate 23, BUN 28, creatinine 0.9, glucose 195, calcium 10.1, and albumin 1.7. ASSESSMENT AND PLAN: 1. Septic shock. He is still on vasopressors. He is still on IV antibiotics. Blood culture showed Morganella morganii. We repeated the blood cultures on 01/19/2019, and they have been negative. We believe that probably the source of infection is the gallbladder. He had a successful CT-guided percutaneous cholecystostomy done yesterday where very thick black tarry material was removed, and sent to the laboratory for bacteriological studies. 2. Chronic systolic CHF, repeated ejection fraction looks a little bit worse compared with the previous one. At this moment, it is around 25 to 30 percent. He is not on diuretics, and actually I am giving him fluids because he is not eating too much. At this moment, he is lethargic. Continue with Clinimix, but probably we need to place an NG tube and start feeding this patient through enteral feeding this patient. 3. Chronic kidney disease stage 3. We will continue with gentle hydration. If he is awake, we will start feeding this patient. 4. Diabetes. Continue to monitor. 5. Metabolic encephalopathy. He is still lethargic, but apparently he has been having some episodes where he is awake and following commands. 6. Elevated liver function tests. We will monitor. 7. Anemia of chronic disease, status post 1 PRBC. Continue to monitor. Hemoglobin and hematocrit has been more stable. 8. Generalized weakness and physical deconditioning. Continue physical therapy. 9. Arthritis with generalized pain in all 4 extremities, especially hand and feet. Continue with same management for now. 10. Nutritional status. He was able to swallow, and he was placed on a pureed diet. Swallow evaluation saw this patient a few days ago, but this moment he is lethargic so we will continue with Clinimix, but probably we need to place an NG tube and start feeding this patient so he can receive also his medications through that. PLAN: Overall, his prognosis is poor due to his age over the current condition and comorbidities. His leukocyte count is still trending up. His sodium level is better as well as his potassium. I will continue with same management. Urine output looks better now. CRITICAL CARE TIME: 35 minutes. cc: Dread Light MD
--- NOTE | 2019-01-25 12:10 | GENERAL SURGERY PROGRESS NOTE ---
DATE: 01/25/2019 SUBJECTIVE: Patient seems to be doing about the same. He had a cholecystostomy tube placed yesterday. OBJECTIVE: Vital Signs: Patient is currently afebrile. Pulse is 76, blood pressure 122/63. General: Somewhat agitated. Cardiovascular: Regular rate and rhythm. Lungs: Some coarse sounds noted. Abdomen: Soft. Cholecystostomy tube in place. LABORATORY DATA: Currently pending. ASSESSMENT AND PLAN: A 68-year-old gentleman with bacteremia and possible cholecystitis. 1. Bacteremia. At this time, most recent cultures have been negative. Recommend continue antibiotics. 2. Possible cholecystitis. At this time, we have temporized him with cholecystostomy tube. We will continue to monitor. cc: Taqueria Cabrales MD
--- NOTE | 2019-01-25 14:12 | INFECTIOUS DISEASE PROGRESS NO ---
DATE: 01/25/2019 PRESENT ILLNESS: Patient has a Morganella bacteremia. I think this originated from cholecystitis. MEDICATIONS: This is the 5th day of treatment with Zosyn with day 1 being the first day that the patient's repeat blood cultures were sterile. PHYSICAL EXAMINATION: Vital Signs: Temperature earlier was 101 now it is 98, pulse 86, respirations 13, blood pressure 121/70. General: This is an ill-appearing elderly male. He is in a delirium. Head, eyes, ears, nose, and throat: There is no drainage from the nose or ears. Neck: When I tried to move the patient's neck he screamed, but he screams any time I moved anything on him. Lungs: Clear to auscultation. Cardiovascular: Heart is regular. Abdomen: Soft. In the right side, there is a percutaneous cholecystostomy tube present. The bile coming out is very dark in color. Neurologic: The patient lies in bed with his eyes mostly closed, but anytime I would touch him or move him, he screamed. The patient has a combination pacemaker and defibrillator on the left side; the site is not swollen or tender. LAB AND X-RAY: CBC shows a white count of 23,800, hemoglobin 8, platelet count 280,000. Creatinine is 0.9. GFR is greater than 60. Liver function studies are normal. Bile culture is pending. ASSESSMENT AND PLAN: The patient has Morganella bacteremia. I think this originated from the gallbladder. Yesterday, Dr. Kraus put in a percutaneous cholecystostomy tube. A culture of the bile from the tube is pending. The patient will need 6 weeks of antibiotics because his pacemaker may have become hematogenously infected when Morganella was in the blood stream. COMORBIDITIES: The patient is elderly, diabetic, and he has sarcoidosis, congestive heart failure and a permanent pacemaker defibrillator in the left chest. cc: Chavo Benoit MD
[2019-01-25] MEDS: CORDARONE PO SCH (15:28)
[2019-01-25] MEDS: CLINIMIX E 4.25%-5% SOLUTION 1,000 ML IV SCH (15:29)
[2019-01-25] MEDS: COREG PO SCH ×2 (15:30→22:32)
[2019-01-25] MEDS: VITAMIN D PO SCH (15:30)
[2019-01-25] MEDS: MORPHINE IV PRN (21:02)
[2019-01-26] MEDS: HUMALOG SUBQ SCH ×6 (01:16→19:28)
[2019-01-26] MEDS: MORPHINE IV PRN ×3 (04:02→22:33)
[2019-01-26] MEDS: ZOSYN 3.375 GM in NS 50 ML IV SCH ×4 (06:18→22:34)
[2019-01-26] MEDS: LEVOPHED 8 MG in D5 1/2 NS 250 ML IV SCH ×2 (06:18→18:12)
[2019-01-26] MEDS: PRILOSEC PO SCH (06:19)
[2019-01-26 06:47] LABS: BASO% 0.4 % (0.0-0.8); EOS# 0.33 X1000 (0.0-0.7); EOS% 1.4 % (0.0-10.0); HEMATOCRIT 26.5 % (42.0-52.0); HEMOGLOBIN 8.4 g/dL (14.0-18.0); IMM GRAN# 1.03 X1000 (0.0-0.04); IMM GRAN% 4.4 % (0.0-0.5); LYMPH# 2.39 X1000 (1.2-3.4); LYMPH% 10.3 % (20.5-51.1); MCH 28.6 PG (27-31); MCHC 31.7 g/dL (33-37); MCV 90.1 FL (81-99); MONO# 1.73 X1000 (0.11-0.59); MONO% 7.5 % (1.7-9.3); MPV 10.2 FL (7.4-10.4); NEUT# 17.63 X1000 (1.4-6.5); PLT 306 X1000 (130-400); RBC 2.94 XMIL (4.7-6.1); WBC 23.21 X1000 (4.8-10.8)
[2019-01-26 07:00] LABS: AGAP 12; BUN 23 mg/dL (8-22); CALCIUM 10.3 mg/dL (8.8-10.2); CHLORIDE 105 mmol/L (98-107); COSMO 293; CREATININE 0.9 mg/dL (0.7-1.2); ESTIMATED GFR > 60; GLUCOSE 204 mg/dL (70-104); POTASSIUM 3.5 mmol/L (3.5-5.1); SODIUM 142 mmol/L (136-145); TCO2 25 mmol/L (25-35)
--- NOTE | 2019-01-26 07:11 | Diag Imaging Result Doc PS360 ---
CHEST/ABD TUBE PLACEMENT - 01/26/2019 INDICATION: NG Tube Placement COMPARISON: 01/23/2019 FINDINGS: There is severe patient motion blur. The nasogastric tube is either in the distal esophagus or in the stomach. IMPRESSION: Nondiagnostic. Electronically signed by Sid Carlson 01/26/2019 7:09 AM
[2019-01-26 07:33] LABS: EOS 2 % (1-10); LYMPHS 6 % (21-51); MONO 2 % (1-9); SEGS 90 % (42-75)
--- NOTE | 2019-01-26 09:22 | PROGRESS NOTE ---
DATE: 01/26/2019 SUBJECTIVE: Patient is still lying in bed. He is lethargic, but today he is opening his eyes spontaneously, and he is able to move his extremities, but he is complaining of severe pain, which is generalized but mostly when he moves. He is still on pressors. An NG tube has been placed. We will start nutrition today and try to decrease the amount of fluids IV. OBJECTIVE: Vital Signs: Temperature 99 degrees, pulse 80, respiratory rate 23, blood pressure 118/70, oxygen saturation 97% on room air. HEENT: Head normocephalic. No trauma. PERRLA. Neck: Supple. No JVD. No masses. Central trachea. Chest: Decreased breath sounds at the bases with some crepitus mostly on the left side. Abdomen: Soft. He has a drain coming out from his abdomen with some serosanguineous dark secretion, probably bilious secretion. Extremities: He has upper extremity swelling around 2+. No lower extremity swelling. No clubbing. No cyanosis. He is really tender to palpation. Neurological: This patient is lethargic, but he is grimacing and opening his eyes spontaneously. He is moaning with pain stimulation, mostly at the level of the upper extremities. LABORATORY: WBC 23.2, hemoglobin 8.4, hematocrit 26.5, platelets 306,000. Sodium 142, potassium 3.5, chloride 105, bicarbonate 25, BUN 23, creatinine 0.9, glucose 204, calcium 10.3. ASSESSMENT AND PLAN: 1. Septic shock, he is still on vasopressors. Continue with IV antibiotics per Infectious Disease Department. Blood culture showed Morganella morganii initially. We repeated blood cultures on 01/19/2019, and they have been negative so far. We believe the source of infection is the gallbladder. He has successful CT guided percutaneous cholecystostomy done 2 days ago where a very thick black tarry material has been removed and sent to the laboratory. This secretion has been negative so far. 2. Chronic systolic congestive heart failure. It looks like his ejection fraction is a little bit worse compared with the previous one. It is around 25 to 30 percent. He is not on diuretics at this moment. Actually I am giving him some fluids because he is not eating at all. We placed an NG tube and hopefully we will start feeding this patient today so we can stop some of the fluids. I will probably start this patient back on diuretics, but I checked the x-ray done today after the NG tube placement and there is not evidence of pulmonary edema or pleural effusion. His oxygen saturation has been stable without oxygen supplementation. 3. Chronic kidney disease stage 3. We will continue with gentle hydration. We will start feeding this patient through the NG tube and likely we need to decrease the rate of the fluids. 4. Diabetes. Continue to monitor. 5. Metabolic encephalopathy. He still lethargic. I am not sure if he has a baseline dementia, though. 6. Elevated liver function tests. We will monitor. 7. Anemia of chronic disease, status post 1 PRBC. We will monitor. Hemoglobin and hematocrit has been stable. 8. Generalized weakness and physical deconditioning. Continue physical therapy. 9. Arthritis which is with generalized pain in all 4 extremities. 10. Nutritional status. He was able to swallow and actually he passed a swallow evaluation. He was placed on a soft diet, but since he has been lethargic, we will continue with the Clinimix. We just placed an NG tube and we will start feeding this patient through the NG tube. So once we start the feedings, we will decrease the rate of the fluids. Overall, this patient's prognosis is poor due to his age, current condition and comorbidities. His leukocyte count is still elevated. His sodium level is better as well as his potassium level. Kidney function has been stable. I will continue with the IV fluids for now and we will start feeding this patient through the NG tube. No family members at the bedside at this moment. cc: Dread Light MD
[2019-01-26] MEDS: CORDARONE PO SCH (09:23)
[2019-01-26] MEDS: VITAMIN D PO SCH (09:23)
[2019-01-26] MEDS: LASIX IV SCH (09:24)
[2019-01-26] MEDS: COREG PO SCH ×2 (09:24→21:22)
[2019-01-26] MEDS: D5W 1,000 ML IV SCH (09:32)
[2019-01-26] MEDS: CLINIMIX E 4.25%-5% SOLUTION 1,000 ML IV SCH (11:31)
--- NOTE | 2019-01-26 14:36 | GENERAL SURGERY PROGRESS NOTE ---
DATE: 01/26/2019 SUBJECTIVE: He remains somewhat altered this morning, not really conversant. OBJECTIVE: Vital Signs: Low-grade temperature this morning of 100.1, pulse has been in the 70s, blood pressure 123/64. General: He is a chronically ill-appearing gentleman that does vocalize, but does not communicate clearly. Abdomen: His abdomen is soft, nontender. His cholecystostomy drain has old bilious drainage in it. No purulence. LABS: White count remains elevated at 23, hematocrit 26, creatinine 0.9. He did not have LFTs this morning. ASSESSMENT AND PLAN: A 68-year-old gentleman status post cholecystostomy placed. He does have a bit of an ileus. Nasogastric tube is in place and altered mental status. He has multiple medical issues ongoing, including presumed septic shock, possible cholecystitis, etiology congestive heart failure, chronic kidney disease, diabetes, encephalopathy, malnutrition. We will continue cholecystostomy drainage and antibiotics going forward. He is very high risk for any surgical procedures. cc: Yovani Law MD
[2019-01-26] MEDS: ATIVAN IV PRN (16:32)
[2019-01-26] MEDS: LOVENOX SUBQ SCH (21:24)
[2019-01-27] MEDS: HUMALOG SUBQ SCH ×7 (01:30→23:46)
[2019-01-27] MEDS: ZOSYN 3.375 GM in NS 50 ML IV SCH ×4 (05:12→22:00)
[2019-01-27] MEDS: MORPHINE IV PRN (06:14)
[2019-01-27] MEDS: PRILOSEC PO SCH (06:23)
[2019-01-27 06:35] LABS: BASO# 0.06 X1000 (0.0-0.2); BASO% 0.3 % (0.0-0.8); EOS# 0.29 X1000 (0.0-0.7); EOS% 1.6 % (0.0-10.0); HEMATOCRIT 25.6 % (42.0-52.0); HEMOGLOBIN 7.9 g/dL (14.0-18.0); IMM GRAN# 0.54 X1000 (0.0-0.04); LYMPH# 2.12 X1000 (1.2-3.4); LYMPH% 11.8 % (20.5-51.1); MCHC 30.9 g/dL (33-37); MCV 90.8 FL (81-99); MONO% 7.3 % (1.7-9.3); MPV 10.2 FL (7.4-10.4); NEUT# 13.61 X1000 (1.4-6.5); PLT 298 X1000 (130-400); RBC 2.82 XMIL (4.7-6.1); RDW 16.1 % (11.5-14.5); WBC 17.92 X1000 (4.8-10.8)
[2019-01-27 07:03] LABS: ESTIMATED GFR > 60
[2019-01-27 07:05] LABS: AGAP 11; ALB/GLOB RATIO 0.4; ALBUMIN 1.6 g/dL (3.5-5.0); ALKALINE PHOSPHATASE 94 U/L (32-122); BUN 23 mg/dL (8-22); CALCIUM 10.4 mg/dL (8.8-10.2); CHLORIDE 102 mmol/L (98-107); COSMO 286; CREATININE 0.9 mg/dL (0.7-1.2); GLUCOSE 186 mg/dL (70-104); GOT 18 U/L (10-34); GPT 8 U/L (10-44); MAGNESIUM 1.7 mg/dL (1.5-2.7); PHOSPHORUS 3.4 mg/dL (2.7-4.5); POTASSIUM 3.8 mmol/L (3.5-5.1); SODIUM 139 mmol/L (136-145); TCO2 26 mmol/L (25-35); TOTAL BILIRUBIN 1.34 mg/dL (0.20-1.00); TOTAL PROTEIN 6.1 g/dL (6.3-8.3)
--- NOTE | 2019-01-27 07:34 | Diag Imaging Result Doc PS360 ---
CHEST-PORTABLE - 01/27/2019 INDICATION: dyspnea COMPARISON: 01/26/2019 FINDINGS: There is a nasogastric tube in good position in the stomach. Stable pacemaker. Stable cardiomegaly and pulmonary vascular congestion. There is probably mild interstitial pulmonary edema. IMPRESSION: Cardiomegaly, pulmonary vascular congestion, mild pulmonary edema. Electronically signed by Sid Carlson 01/27/2019 7:32 AM
--- NOTE | 2019-01-27 07:47 | PROGRESS NOTE ---
DATE: 01/27/2019 SUBJECTIVE: This patient is still lying in bed. He is still lethargic. He is able to open his eyes spontaneously. He is moving his extremities, but he is complaining of severe pain, which is generalized and mostly when he moves. He is still on vasopressors. NG tube has been placed, and he is getting nutrition. He is tolerating that. OBJECTIVE: Vital Signs: Temperature 98.2 degrees, he had an episode of low-grade fever at 8 a.m. yesterday, pulse 70, respiratory rate 18, blood pressure 102/52, oxygen saturation 94% on room air. HEENT: Head normocephalic. No trauma. PERRLA. Neck: Supple. No JVD. No masses. Central trachea. Chest: Decreased breath sounds at the bases with some crepitus, mostly on the left side. Abdomen: Soft. He has a drain coming out from his abdomen, with dark secretion that looks like bile. Extremities: There is 2+ upper extremity swelling. No lower extremity swelling. No clubbing. No cyanosis. He is really tender to palpation. Neurological: The patient is lethargic. He is grimacing and opening his eyes spontaneously. He is not following commands. LABORATORY DATA: WBC 17.9, hemoglobin 7.9, hematocrit 25.6, platelets 298,000. Sodium 139, potassium 3.8, chloride 102, bicarbonate 26, BUN 23, creatinine 0.9, glucose 186, calcium 10.4, magnesium 1.7, albumin 1.6. ASSESSMENT AND PLAN: 1. Septic shock. He is still on vasopressors. Initial blood culture showed Morganella morganii. He is getting intravenous antibiotics per Infectious Disease Department. Repeated blood culture from 01/19/2019 has been negative so far. We believe the source of infection is the gallbladder. He had a successful CT-guided percutaneous cholecystostomy done 3 days ago, where a very thick, black, tarry discharge has been removed and sent to the laboratory. Culture from that discharge/fluid has been negative so far. 2. Chronic systolic congestive heart failure. It looks like his ejection fraction is a little bit worse compared with the previous one. It is around 25% to 30%. He is not on diuretics at this moment because he has not been able to eat, and actually he is getting nutrition through his nasogastric tube and gentle intravenous fluids. I will continue with the furosemide 20 mg intravenously daily, and I will decrease the rate of the intravenous fluids. 3. Diabetes. Continue to monitor. 4. Metabolic encephalopathy. He is still lethargic. 5. Elevated liver function tests. Will monitor. 6. Anemia of chronic disease, status post 1 packed red blood cells. Stable. 7. Generalized weakness and physical deconditioning. Continue physical therapy. 8. Arthritis with generalized pain. Aware. 9. Nutritional status. Continue with nutrition through the nasogastric tube. I have stopped the D5W and the Clinimix because he is now tolerating his feedings. I will put him on gentle hydration as well. Urine output has been stable. Will monitor this patient closely. 10. Hypernatremia, resolved. Overall, his prognosis is poor due to his age, multiple comorbidities, and current condition. CRITICAL CARE TIME: 35 minutes. cc: Dread Light MD
[2019-01-27] MEDS: 1/2 NS 1,000 ML IV SCH (08:15)
[2019-01-27] MEDS: ATIVAN IV PRN (08:16)
[2019-01-27] MEDS: LASIX IV SCH (08:17)
[2019-01-27] MEDS: CORDARONE PO SCH (08:17)
[2019-01-27] MEDS: COREG PO SCH ×2 (08:17→20:25)
[2019-01-27] MEDS: VITAMIN D PO SCH (08:17)
[2019-01-27] MEDS ORDERED: PROTONIX PO ONE (10:05)
--- NOTE | 2019-01-27 16:45 | GENERAL SURGERY PROGRESS NOTE ---
DATE: 01/27/2019 SUBJECTIVE: He remains very somnolent, less alert today than he was yesterday. Abdomen is soft. There was bile in his cholecystostomy. No fevers. No tachycardia. OBJECTIVE: Blood pressure 165/56. General: He is somnolent. Cardiovascular: Normal rate. Abdomen is soft, nontender, nondistended. Cholecystostomy tube is bilious. DIAGNOSTIC STUDIES: White count 17, hematocrit 25. LFTs are about the same. ASSESSMENT AND PLAN: A 68-year-old gentleman who is status post cholecystostomy tube placement and has multiple medical issues. Prognosis is grim, but would continue cholecystostomy tube indefinitely. cc: Yovani Law MD
[2019-01-27] MEDS: LOVENOX SUBQ SCH (20:25)
[2019-01-28] MEDS: MORPHINE IV PRN ×2 (00:59→06:25)
[2019-01-28] MEDS: HUMALOG SUBQ SCH ×5 (04:12→20:29)
[2019-01-28] MEDS: ZOSYN 3.375 GM in NS 50 ML IV SCH ×4 (05:14→21:37)
[2019-01-28] MEDS: PROTONIX PO SCH (06:22)
--- NOTE | 2019-01-28 06:28 | GENERAL SURGERY PROGRESS NOTE ---
DATE: 01/28/2019 Discussed case with nursing staff. He seems to be doing about the same. They did put a feeding tube in, and started feeds yesterday. He is off pressors, but has not seemed to make much neurologic improvement. His cholecystostomy tube is in place, and output has been decreasing, but still looks bilious. The microbiology on it showed no growth. His white blood cell count has trended down, but is still elevated at 17. From a surgical point of view, still high risk for any kind of surgical intervention so I would recommend continued drainage with a cholecystostomy tube, and continue antibiotics. cc: Taqueria Cabrales MD
[2019-01-28 06:32] LABS: BASO# 0.05 X1000 (0.0-0.2); BASO% 0.3 % (0.0-0.8); EOS# 0.34 X1000 (0.0-0.7); EOS% 2.1 % (0.0-10.0); HEMOGLOBIN 6.8 g/dL (14.0-18.0); IMM GRAN# 0.52 X1000 (0.0-0.04); IMM GRAN% 3.2 % (0.0-0.5); LYMPH# 1.75 X1000 (1.2-3.4); LYMPH% 10.7 % (20.5-51.1); MCH 28.2 PG (27-31); MCHC 30.9 g/dL (33-37); MCV 91.3 FL (81-99); MONO# 1.06 X1000 (0.11-0.59); MONO% 6.5 % (1.7-9.3); MPV 10.4 FL (7.4-10.4); NEUT# 12.65 X1000 (1.4-6.5); NEUT% 77.2 % (42.2-75.2); PLT 293 X1000 (130-400); RBC 2.41 XMIL (4.7-6.1); RDW 16.3 % (11.5-14.5); WBC 16.37 X1000 (4.8-10.8)
[2019-01-28 06:59] LABS: AGAP 10; ALB/GLOB RATIO 0.4; ALBUMIN 1.6 g/dL (3.5-5.0); ALKALINE PHOSPHATASE 84 U/L (32-122); BUN 30 mg/dL (8-22); CALCIUM 10.3 mg/dL (8.8-10.2); CHLORIDE 105 mmol/L (98-107); COSMO 288; CREATININE 1.3 mg/dL (0.7-1.2); ESTIMATED GFR > 60; GLUCOSE 111 mg/dL (70-104); GOT 20 U/L (10-34); GPT 8 U/L (10-44); POTASSIUM 3.7 mmol/L (3.5-5.1); SODIUM 141 mmol/L (136-145); TCO2 26 mmol/L (25-35); TOTAL PROTEIN 5.7 g/dL (6.3-8.3)
[2019-01-28] MEDS: 1/2 NS 1,000 ML IV SCH ×3 (07:37→21:44)
[2019-01-28] MEDS: ATIVAN IV PRN (07:37)
[2019-01-28] MEDS ORDERED: 1/2 NS 1,000 ML IV SCH (07:59)
[2019-01-28] MEDS ORDERED: LASIX IV SCH (08:00)
[2019-01-28] MEDS ORDERED: NS 500 ML IV ONE (08:39)
[2019-01-28] MEDS ORDERED: 1/2 NS 500 ML IV ONE (08:41)
[2019-01-28] MEDS: CORDARONE PO SCH (08:58)
[2019-01-28] MEDS: COLCRYS NG SCH ×2 (08:58→20:12)
[2019-01-28] MEDS: COREG PO SCH (08:58)
[2019-01-28] MEDS: MIRALAX PO SCH (08:58)
[2019-01-28] MEDS: VITAMIN D PO SCH (08:58)
--- NOTE | 2019-01-28 09:03 | PROGRESS NOTE ---
DATE: 01/28/2019 INTERVAL HISTORY: No acute events overnight. His vitals were unremarkable. He continues to have encephalopathy. His urine output is decreasing. He has been off pressors for almost 24 hours now. SUBJECTIVE: He keeps his eyes closed and keeps moaning and groaning. Does not engage in clinical encounter. OBJECTIVE: Vital signs: Currently, temperature 98 degrees, pulse 58, respiratory 22, blood pressure 160/90, saturating 99% on 2 L nasal cannula. General: Not in acute distress. HEENT: Oral cavity: He keeps his mouth closed. Lungs: Air entry appears bilaterally equal. No wheeze, rhonchi, crackles. Cardiovascular: S1, S2 normal. No murmur or gallop. Abdomen: Soft, mild right quadrant tenderness. He has a drain coming out of right upper quadrant. Extremities: He has bilateral hand and bilateral lower extremity edema. : He has a urine catheter. He also he has nasogastric tube. Neurologic: He is drowsy and not oriented. He winces to painful stimuli. He winces to bilateral wrist and ankle movement. LABS: Suggestive of leukocytosis, normocytic anemia with drop in hemoglobin, normal platelet count. He does have elevated BUN and creatinine. Microbiology: No positive data. IMAGING: No new chest x-ray. ASSESSMENT AND PLAN: 1. Septic shock due to Morganella, likely originating from cholecystitis. He is off intravenous pressors since 01/26/2019, first day of negative blood culture is 01/19/2019. Continue intravenous Zosyn as per Infectious Disease recommendations. 2. Suspected cholecystitis with gallbladder sludge on imaging, status post CT-guided cholecystostomy on 01/24/2019. Continue drain management as per surgical team's recommendation. Considering his poor functional status, Surgical Team has not recommended operative management at the moment. 3. Persistent encephalopathy, likely toxic metabolic. I will get head CT to evaluate any structural brain lesions or CVA. I will also get EEG to rule out any seizure. 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 I will continue nasogastric tube feeding. 4. History of cardiomyopathy with ejection fraction of 30%, status post AICD. Continue home carvedilol and amiodarone. I am holding Lasix for now. 5. Acute kidney injury. I will start the patient on intravenous fluid resuscitation. Hold Lasix and follow closely input and output monitoring. 6. Others. Continue enoxaparin for DVT prophylaxis. I will follow up with CBC tomorrow for his anemia and will transfuse 1 unit of PRBC. Continue proton pump inhibitors for stress ulcer prophylaxis and start patient on MiraLAX for constipation as well as colchicine for suspected bilateral wrist gout. 7. Disposition. The patient's condition is critical. More than 30 minutes of critical care time was spent taking care of this patient. cc: Gabriel Bauman MD
[2019-01-28] MEDS: LEVOPHED 8 MG in D5 1/2 NS 250 ML IV SCH ×3 (11:40→21:14)
[2019-01-28] MEDS ORDERED: LEVOPHED 8 MG in D5 1/2 NS 250 ML IV SCH (11:45)
[2019-01-28] MEDS: DIPRIVAN 1% 1,000 MG/100 ML BOTTLE IV SCH ×3 (11:50→22:02)
--- NOTE | 2019-01-28 12:02 | PROGRESS NOTE ---
DATE: 01/28/2019 A code blue was announced at around 11:20 in the morning. Apparently, the patient's oxygen saturation had decreased to 80%, and the nurse evaluated the patient at bedside. The patient was not spontaneously breathing. The nurse checked the pulse, and it was not detectable so a code blue was announced, and chest compressions were begun. The patient did have about 3 to 4 minutes of chest compressions and about 2 doses of epinephrine were given after which pulse was detectable. The patient was also intubated during this time. He had a lot of residual through NG tube. My suspicion is he may have aspirated, and that may have caused primary respiratory failure. Secondary to that, he may have become hypotensive and lost his pulse. I will get a stat chest x-ray, EKG, troponins, CBC, and CMP. I will consult Pulmonology team for recommendation on ventilator management. I updated the patient's on the phone. I talked with her that the patient has been in poor health condition since the last few days. Considering his poor heart function, his condition is critical. I answered all of her questions. Additional 30 minutes of critical care time was spent in taking care of this patient. cc: Gabriel Bauman MD MTDD
--- NOTE | 2019-01-28 12:05 | EKG Report ---
Test Performed on : 01/28/2019 11:34:59 AM Test Reason : Cardiopulmonary arrest Blood Pressure : / mmHG Vent. Rate : 082 BPM Atrial Rate : 082 BPM P-R Int : 080 ms QRS Dur : 138 ms QT Int : 398 ms P-R-T Axes : 000 059 228 degrees QTc Int : 464 ms Sinus rhythm. with short NH with fusion complexes and premature atrial complexes. with aberrant condu ction. Nonspecific intraventricular block Marked ST abnormality, possible anterior subendocardial injury Abnormal ECG When compared with ECG of 17-JAN-2019 14:53, (Unconfirmed) fusion complexes are now present aberrant conduction. is now present NH interval has decreased Questionable change in QRS duration Borderline criteria for Lateral infarct are no longer present Confirmed by Thomas COX, Abhilash Ordaz ([id number]) on 01/29/2019 7:41:20 AM
[2019-01-28 12:11] LABS: ALLEN TEST NO; BE 1.7 mmoll (-3.0-3.0); BLOOD TYPE ARTERIAL; HCO3-(ACT) 26.3 mmoll (20.0-26.0); METHB 1.3 % (0.0-1.5); O2(CT) 6.8 mL/dL (15.0-23.0); O2HB 97.3 % (95.0-99.0); PCO2(98.6) 43 mmHg (35-45); PO2(98.6) 519 mmHg (60-100); SAMPLE BLOOD; SRATE 15 BPM; THB 3.8 g/dL (11.5-17.4); TVOL 500 mL
--- NOTE | 2019-01-28 12:11 | Diag Imaging Result Doc PS360 ---
CHEST-PORTABLE - 01/28/2019 INDICATION: Cardiac arrest COMPARISON: 01/27/2019 FINDINGS: There is an endotracheal tube in good position in the midthoracic trachea. Stable nasogastric tube. Stable pacemaker. The lungs are clear. Heart size is top normal. No large pleural effusion. IMPRESSION: No acute process. No complication. Electronically signed by Sid Carlson 01/28/2019 12:09 PM
[2019-01-28 12:13] LABS: MODALITY VENTILATOR
[2019-01-28 12:15] LABS: BASO# 0.05 X1000 (0.0-0.2); BASO% 0.3 % (0.0-0.8); EOS# 0.45 X1000 (0.0-0.7); EOS% 2.3 % (0.0-10.0); HEMATOCRIT 22.5 % (42.0-52.0); HEMOGLOBIN 6.8 g/dL (14.0-18.0); IMM GRAN# 0.72 X1000 (0.0-0.04); IMM GRAN% 3.7 % (0.0-0.5); LYMPH# 3.24 X1000 (1.2-3.4); LYMPH% 16.5 % (20.5-51.1); MCH 28.2 PG (27-31); MCHC 30.2 g/dL (33-37); MCV 93.4 FL (81-99); MONO# 1.18 X1000 (0.11-0.59); MPV 9.5 FL (7.4-10.4); NEUT# 13.99 X1000 (1.4-6.5); NEUT% 71.2 % (42.2-75.2); PLT 309 X1000 (130-400); RBC 2.41 XMIL (4.7-6.1); RDW 16.2 % (11.5-14.5); WBC 19.63 X1000 (4.8-10.8)
[2019-01-28] MEDS ORDERED: COREG PO SCH (12:22)
[2019-01-28 12:24] LABS: ALB/GLOB RATIO 0.5; ALBUMIN 1.7 g/dL (3.5-5.0); CALCIUM 10.3 mg/dL (8.8-10.2); CREATININE 1.5 mg/dL (0.7-1.2); POTASSIUM 4.2 mmol/L (3.5-5.1); TOTAL BILIRUBIN 1.2 mg/dL (0.20-1.00); TOTAL PROTEIN 5.2 g/dL (6.3-8.3)
[2019-01-28 12:39] LABS: EOS 2 % (1-10)
[2019-01-28 12:41] LABS: BANDS 7 % (0-1); HYPOCHROM 2+; LYMPHS 16 % (21-51); MONO 2 % (1-9); NRBC 1 % (0-0); SEGS 70 % (42-75)
--- NOTE | 2019-01-28 15:03 | INFECTIOUS DISEASE PROGRESS NO ---
DATE: 01/28/2019 PRESENT ILLNESS: Patient has Morganella bacteremia. I think it could have originated from cholecystitis. MEDICATIONS: This is the 8th day of treatment with Zosyn for the Morganella bacteremia. Day 1 is the first day that the repeat blood cultures are sterile. PHYSICAL EXAMINATION: Vital Signs: Temperature is 98 degrees, pulse 58, respirations 22, blood pressure is 168/109. General: This is an ill-appearing elderly male. He appears to be delirious. Head, Eyes, Ears, Nose and Throat: No drainage noted from the nose or ears. Neck: There was no stiffness when I passively moved his neck. Lungs: Clear to auscultation. Thorax: The patient has a combination pacemaker defibrillator in the left chest. The site is not enlarged more that it usually is because of the presence of a pacemaker defibrillator. There is no drainage coming from the site either. Cardiovascular: Heart rate is regular. Abdomen: Soft. It was not tender today. There is a percutaneous cholecystostomy tube in place. The site is not erythematous or draining. Neurologic: The patient's eyes are closed. He did not respond to verbal stimuli. At times, just touching him causes him to scream. Integument: No rash noted. LAB AND X-RAY: The patient's chest x-ray shows cardiomegaly, pulmonary venous congestion, mild pulmonary edema. ASSESSMENT AND PLAN: The patient has a Morganella bacteremia. This may have originated from cholecystitis. My plan will be to continue Zosyn. The patient's white count is coming down a little bit. It was in the 17,000 range and now it is down to 16,000. I will can continue Zosyn for a total of 14 days with day 1 being the first day that the repeat blood cultures were sterile. Also, if the patient did have cholecystitis having a cholecystostomy tube should clear up the cholecystitis. COMORBIDITIES: The patient is elderly. He is a diabetic. He has sarcoidosis, congestive heart failure and a permanent pacemaker in the left chest. cc: Chavo Benoit MD
--- NOTE | 2019-01-28 15:21 | Diag Imaging Result Doc PS360 ---
EXAM: CHEST-PORTABLE HISTORY: PICC placement TECHNIQUE: Chest single view COMPARISON: 11:50 AM FINDINGS: Interval placement of a right-sided PICC line the tip is actually difficult to tell its exact location due to the overlying lines, leads, and technique. I believe it is in the distal superior vena cava. Electronically signed by Jeanmarie Mcbride 01/28/2019 3:19 PM
[2019-01-28 15:22] LABS: INR 1.17
[2019-01-28 16:05] LABS: AGAP 13; BUN 34 mg/dL (8-22); CALCIUM 9.8 mg/dL (8.8-10.2); CHLORIDE 104 mmol/L (98-107); COSMO 292; CREATININE 1.4 mg/dL (0.7-1.2); ESTIMATED GFR > 60; GLUCOSE 197 mg/dL (70-104); POTASSIUM 3.5 mmol/L (3.5-5.1); SODIUM 140 mmol/L (136-145); TCO2 23 mmol/L (25-35)
--- NOTE | 2019-01-28 16:40 | Diag Imaging Result Doc PS360 ---
EXAM: CT HEAD W/O CONTRAST HISTORY: Persistent encephalopathy TECHNIQUE: CT brain without contrast COMPARISON: 01/17/2019 FINDINGS: No parenchymal hemorrhage. No epidural or subdural hematoma. No subarachnoid hemorrhage. There is atrophy of chronic microvascular ischemic changes. Old right parietal infarct superiorly. No mass identified on this noncontrasted exam. No hydrocephalus. No sinus opacification. IMPRESSION: 1.No hemorrhage 2.Atrophy with chronic microvascular ischemic changes This exam was performed using automated exposure control, adjustment of mA or kV according to patient size, and/or use of iterative reconstruction technique. Electronically signed by Jeanmarie Mcbride 01/28/2019 4:38 PM
[2019-01-28 16:45] LABS: HEMATOCRIT 25.3 % (42.0-52.0); HEMOGLOBIN 7.9 g/dL (14.0-18.0)
[2019-01-28 19:23] LABS: CK INDEX 2.2 (0.0-2.5); CK-MB 4.68 ng/mL (0.0-5.0)
[2019-01-28] MEDS: SOLU-MEDROL IV SCH (20:12)
[2019-01-28] MEDS: LOVENOX SUBQ SCH (20:12)
[2019-01-29] MEDS: HUMALOG SUBQ SCH ×7 (00:08→23:42)
[2019-01-29] MEDS: SOLU-MEDROL IV SCH ×3 (03:57→20:11)
[2019-01-29] MEDS: ZOSYN 3.375 GM in NS 50 ML IV SCH ×4 (03:57→21:45)
[2019-01-29] MEDS: LEVOPHED 8 MG in D5 1/2 NS 250 ML IV SCH ×3 (03:58→18:08)
[2019-01-29 04:42] LABS: ALLEN TEST YES; BE -0.2 mmoll (-3.0-3.0); BLOOD TYPE ARTERIAL; HCO3-(ACT) 24.8 mmoll (20.0-26.0); METHB 0.8 % (0.0-1.5); O2(CT) 13.7 mL/dL (15.0-23.0); PCO2(98.6) 36 mmHg (35-45); PO2(98.6) 108 mmHg (60-100); SAMPLE BLOOD; SAO2 99.3 % (95.0-100.0); SRATE 12 BPM; THB 9.9 g/dL (11.5-17.4); TVOL 600 mL; pH(98.6) 7.43 (7.35-7.45)
[2019-01-29 04:44] LABS: MODALITY VENTILATOR
[2019-01-29 05:00] LABS: HEMOGLOBIN 9.4 g/dL (14.0-18.0); MCH 28.7 PG (27-31); MCHC 32.4 g/dL (33-37); MCV 88.7 FL (81-99); MPV 10.4 FL (7.4-10.4); PLT 332 X1000 (130-400); RBC 3.27 XMIL (4.7-6.1); RDW 16.4 % (11.5-14.5); WBC 36.36 X1000 (4.8-10.8)
[2019-01-29] MEDS: DIPRIVAN 1% 1,000 MG/100 ML BOTTLE IV SCH ×3 (05:00→18:07)
[2019-01-29 05:22] LABS: MAGNESIUM 1.7 mg/dL (1.5-2.7); PHOSPHORUS 4.7 mg/dL (2.7-4.5)
[2019-01-29 05:30] LABS: AGAP 13; ALB/GLOB RATIO 0.5; ALBUMIN 1.9 g/dL (3.5-5.0); ALKALINE PHOSPHATASE 89 U/L (32-122); BUN 35 mg/dL (8-22); CALCIUM 9.8 mg/dL (8.8-10.2); CHLORIDE 103 mmol/L (98-107); COSMO 288; CREATININE 1.2 mg/dL (0.7-1.2); ESTIMATED GFR > 60; GLUCOSE 179 mg/dL (70-104); GOT 31 U/L (10-34); GPT 12 U/L (10-44); POTASSIUM 4.3 mmol/L (3.5-5.1); SODIUM 138 mmol/L (136-145); TCO2 22 mmol/L (25-35); TOTAL BILIRUBIN 1.42 mg/dL (0.20-1.00); TOTAL PROTEIN 5.8 g/dL (6.3-8.3)
[2019-01-29 05:38] LABS: LYMPHS 5 % (21-51); SEGS 95 % (42-75)
[2019-01-29] MEDS: PROTONIX PO SCH (06:00)
--- NOTE | 2019-01-29 06:57 | Diag Imaging Result Doc PS360 ---
CHEST-PORTABLE - 01/29/2019 INDICATION: dyspnea COMPARISON: 01/28/2019 FINDINGS: Stable endotracheal tube and nasogastric tube in good position. Stable right PICC line in good position. Stable pacemaker. Stable complete consolidation of the left lower lobe. There is some hazy infiltrate in the right lung base as well slightly worsened since prior. Pulmonary vascularity is grossly normal. IMPRESSION: Worsening infiltrate in the right lung base. Electronically signed by Sid Carlson 01/29/2019 6:54 AM
[2019-01-29] MEDS ORDERED: VANCOMYCIN IV PER PHARMACY MISC SCH (07:15)
--- NOTE | 2019-01-29 07:59 | PULMONOLOGY CONSULTATION ---
DATE: 01/28/2019 REASON FOR CONSULTATION: Respiratory failure with cardiopulmonary arrest. HISTORY OF PRESENT ILLNESS: Mr. Benoit is a 68-year-old male who has had some weight loss over the last 4 to 6 weeks. The patient has history of sarcoidosis and systolic heart failure with an ICD in place along with a greater than 45 pack-year history for tobacco. The patient was brought to the emergency room on 01/17/2019 for altered mental status and a fever of 101.3 degrees. Blood cultures revealed Morganella morganii and he has been initiated on antibiotics by Infectious Disease for presumptive acute cholecystitis. The patient underwent drainage. Gallbladder cultures revealed no growth. The patient's mental status has remained poor since admission. The patient was on 2 L and appeared to be comfortable this morning. EEG leads were being placed when the patient became apneic and hypoxemic requiring initiation of a code blue. He had CPR lasting 3 to 4 minutes. PAST MEDICAL HISTORY: 1. Diabetes mellitus. 2. History of sarcoid. 3. Dyslipidemia. 4. Nonocclusive coronary artery disease identified on cardiac catheterization 02/21/2017. SOCIAL HISTORY: No alcohol or tobacco use listed. FAMILY HISTORY: Positive for hypertension. REVIEW OF SYSTEMS: Cannot be obtained. A 68-year-old. PHYSICAL EXAMINATION: General: Reveals a frail, chronically ill-appearing male on mechanical ventilation. He is unresponsive. He has significant temporal wasting. HEENT: Pupils are equal. Oropharynx appears dry. Neck: Supple. Chest: Reveals crackles in the lung bases. Cardiac: S1, S2. Abdomen: Soft with no bowel sounds present. Extremities: Reveal healing leg ulcers bilaterally. LABORATORIES: Chest x-ray reveals cardiomegaly with the ICD and nasogastric tube in position. White blood count 19.6, hemoglobin 7.9, platelet count 309,000. Sodium 140, potassium 3.5, chloride 104, bicarbonate 23, BUN 34, creatinine 1.4. Arterial blood gas reveals a pH of 7.40, pCO2 of 43, pO2 of 519. IMPRESSION: A 68-year-old with weight loss, progressive decline over the last several weeks and physical status, cardiomyopathy, acute ventilatory failure, nonischemic cardiomyopathy, moderate pulmonary hypertension with encephalopathy. RECOMMENDATIONS: 1. Continue full ventilatory support. 2. Check cortisol level off his blood in the lab and initiate a steroid trial given prior diagnosis of sarcoidosis. 3. Continue antibiotics per Infectious Disease. 4. Recommend obtaining EEG tomorrow. 5. Prognosis appears poor if no reversible cause for his decline can be identified. cc: Marcelo Duque MD
[2019-01-29] MEDS: CORDARONE PO SCH (08:11)
[2019-01-29] MEDS: MIRALAX PO SCH (08:11)
[2019-01-29] MEDS: COLCRYS NG SCH ×2 (08:11→20:14)
[2019-01-29] MEDS: ZYVOX 600 MG/D5W 600 MG/300 ML IVPB IV SCH ×2 (08:23→20:11)
--- NOTE | 2019-01-29 09:26 | PROGRESS NOTE ---
DATE: 01/29/2019 INTERVAL HISTORY: No acute events overnight. He did have slight improvement in his urine output. He has been maintaining adequate saturation. Head CT was unremarkable. EEG has not been performed because he was hemodynamically unstable yesterday. Currently, he is on sedation. His sputum is growing gram-positive cocci and vancomycin has been added. I discussed with the nurse about starting him on tube feeds. VITALS: Currently, temperature of 96.5 degrees, pulse 83, respiratory rate 12, and blood pressure 87/61. He is maintaining MAP more than 65 mmHg. PHYSICAL EXAMINATION: General: Does not appear in any acute distress. He is not responding to verbal or painful stimuli. However, he is on propofol. I discussed with the nurse about decreasing the sedation. He has a nasogastric tube, endotracheal tube, urine catheter, and right- sided upper quadrant abdominal drain accordion. Lungs: Air entry bilaterally equal. No wheeze, rhonchi, or crackles. Cardiovascular: S1, S2 normal. No murmur, rub, or gallop. Abdomen: Soft and nontender. Hypoactive bowel sounds. Extremities: He has bilateral hand and bilateral lower extremity edema. Neurologic: He is not responding to painful stimuli, likely because of propofol. Pupils are bilaterally equal reacting to light. LABORATORY: Suggestive of worsening leukocytosis, normocytic anemia, and normal platelet count. The leukocytosis could be related to steroid use. He does have adequate PO2 and pCO2 on ABG. His electrolytes suggest improvement in creatinine consistently and elevated BUN. Sputum is growing gram-positive cocci. IMAGING: Chest x-ray suggests right lower lobe infiltrate. ASSESSMENT AND PLAN: 1. Primary respiratory arrest leading to possibly cardiac arrest on 01/28 status post resuscitation lasting about 3 minutes and intubation. 2. Septic shock due to Morganella originating from cholecystitis and right lower lobe pneumonia. Continue intravenous norepinephrine to maintain MAP more than 65 mmHg, intravenous Zosyn, and add intravenous vancomycin. 3. Cholecystitis with gallbladder sludge, status post CT-guided cholecystostomy on 01/24. Continue drain management as per surgical team's recommendation. 4. Persistent encephalopathy likely toxic metabolic. CT head did not have any acute intracranial pathology on repeat evaluation, except old right parietal infarct. In the future, I may consider getting an EEG once he is off the propofol. 5. History of cardiomyopathy with ejection fraction of 30% status post AICD. Continue home amiodarone, and holding the Lasix and holding the carvedilol. 6. Acute kidney injury. Continue intravenous fluid resuscitation, and intravenous pressors. This is likely because of shock. Intravenous steroids has been ordered by the pulmonology team. 7. Others: Continue enoxaparin for deep venous thrombosis prophylaxis. He does have normocytic anemia, and he is now status post 2 units of packed red blood cells with appropriate rise in CBC. Continue proton pump inhibitors for stress ulcer prophylaxis and MiraLAX for constipation. I will start him on a slow rate of nasogastric tube feeding. 8. Disposition: Continue to monitor patient inside critical care unit. TIME SPENT: More than 30 minutes of critical care time was spent taking care of this patient. Plan of care discussed with the nursing team. cc: Gabriel Bauman MD
--- NOTE | 2019-01-29 10:45 | GENERAL SURGERY PROGRESS NOTE ---
DATE: 01/29/2019 The patient had a code yesterday. He has been intubated. He is still on pressors. He did have a significant increase his white blood cell count, now at 36. This is likely related to the code and the stress of that. His cholecystostomy tube is still draining,at this point, I recommend just continuing current treatment and continue antibiotics. The patient is high risk for any surgical intervention. cc: Taqueria Cabrales MD
--- NOTE | 2019-01-29 12:20 | INFECTIOUS DISEASE PROGRESS NO ---
DATE: 01/29/2019 PRESENT ILLNESS: The patient is being treated for a Morganella bacteremia, which I think originated from cholecystitis. Today, his white count has jumped to 36,360. The patient yesterday was started on high doses of steroids which could be causing the elevation in his white count. However, on chest x-ray, he does have bibasilar infiltrates and the one on the right side is worsening and possibly the patient has developed a pneumonia. His sputum is growing a gram- positive coccus and I think it is possible that the organism will returned goods receiving clerk to be methicillin- resistant Staph aureus. MEDICATIONS: This is the 9th day of treatment with Zosyn for the Morganella bacteremia. PHYSICAL EXAMINATION: Vital Signs: Temperature is 97.2 degrees, pulse 81, respirations 12, blood pressure 78/58. General: This is a chronically ill-appearing elderly male. He is lying in bed and does not seem to be in any acute distress. Head/eyes/ears/nose/throat: No drainage noted from the nose or ears. Lungs: Clear to auscultation. Cardiovascular: Heart rate is regular. Thorax: The patient has a pacemaker on the left side of the chest. The site is not swollen or draining. Abdomen: Soft and nontender. There is a percutaneous cholecystostomy tube in place. The site of the tube does not have any drainage around it. Neurologic: As mentioned above, today the patient appears to be sleeping. He does not have a tremor. LAB AND X-RAY: The chest x-ray today shows worsening of the patient's infiltrate in the right lower lung. ASSESSMENT AND PLAN: I plan to continue Zosyn for 5 more days to complete a 2-week treatment course with day #1 being the first day that the patient's blood cultures were negative. As regarding the patient's elevated white blood cell count and worsening pneumonia, I have started the patient on IV Zyvox pending the results of the sputum culture. COMORBIDITIES: Patient is elderly. He is a diabetic. He has sarcoidosis, congestive heart failure, and a permanent pacemaker in the left chest. cc: Chavo Benoit MD
[2019-01-29] MEDS: 1/2 NS 1,000 ML IV SCH (20:10)
[2019-01-29] MEDS: LOVENOX SUBQ SCH (20:11)
--- NOTE | 2019-01-29 22:02 | PULMONOLOGY PROGRESS NOTE ---
DATE: 01/29/2019 SUBJECTIVE: The patient remains on mechanical ventilation. He is poorly responsive. He has been afebrile for the last 24 hours. OBJECTIVE: Blood pressure 129/73, heart rate 56, respiratory rate 12, oxygen saturation 99%. HEENT: Pupils are midpoint and mildly reactive. Oropharynx appears clear. Neck is supple. Chest reveals good air entry with occasional rhonchi. Cardiac exam: S1, S2. Abdomen is soft, with diminished bowel sounds. Extremities reveal generalized edema. LABORATORY DATA: White blood count 36,000, hemoglobin 9.4, platelet count 332,000. Arterial blood gas reveals a pH of 7.42, pCO2 of 36, pO2 of 108. Sodium 138, potassium 4.3, chloride 103, bicarbonate 22, BUN 35, creatinine 1.2. Microbiology is growing gram-positive cocci, presumptive positive for MRSA. DIAGNOSTIC DATA: Chest x-ray reveals consolidation in the left lower lobe and in the right base. IMPRESSION: A 68-year-old with: 1. Methicillin-resistant Staphylococcus aureus pneumonia. 2. Nonischemic cardiomyopathy. 3. Acute hypercapnic/ventilatory failure. 4. Abnormal weight loss. 5. Encephalopathy. 6. Relative adrenal insufficiency, given his current physiologic state. RECOMMENDATIONS: 1. Continue full ventilatory support pending improvement in mental status. 2. Continue steroid trial. 3. Zyvox per Infectious Disease for MRSA pneumonia. 4. Overall prognosis appears guarded to poor. Time spent in critical care management 35 minutes. cc: Marcelo Duque MD
[2019-01-30] MEDS: LEVOPHED 8 MG in D5 1/2 NS 250 ML IV SCH ×3 (02:11→18:13)
[2019-01-30] MEDS: DIPRIVAN 1% 1,000 MG/100 ML BOTTLE IV SCH ×2 (02:14→08:15)
[2019-01-30] MEDS: HUMALOG SUBQ SCH ×5 (03:52→20:46)
[2019-01-30] MEDS: SOLU-MEDROL IV SCH ×3 (03:52→20:46)
[2019-01-30] MEDS: ZOSYN 3.375 GM in NS 50 ML IV SCH ×4 (03:52→22:42)
[2019-01-30 04:35] LABS: ALLEN TEST YES; BE -0.8 mmoll (-3.0-3.0); BLOOD TYPE ARTERIAL; HCO3-(ACT) 24.3 mmoll (20.0-26.0); O2(CT) 13.8 mL/dL (15.0-23.0); O2HB 96.7 % (95.0-99.0); PCO2(98.6) 35 mmHg (35-45); PO2(98.6) 101 mmHg (60-100); SAMPLE BLOOD; SAO2 99.3 % (95.0-100.0); SRATE 12 BPM; TVOL 600 mL; pH(98.6) 7.43 (7.35-7.45)
[2019-01-30 04:36] LABS: MODALITY VENTILATOR
[2019-01-30] MEDS: PROTONIX PO SCH ×2 (05:52→06:27)
[2019-01-30 05:57] LABS: HEMATOCRIT 28.2 % (42.0-52.0); HEMOGLOBIN 9.3 g/dL (14.0-18.0); MCH 28.8 PG (27-31); MCV 87.3 FL (81-99); RBC 3.23 XMIL (4.7-6.1); RDW 16.4 % (11.5-14.5); WBC 43.9 X1000 (4.8-10.8)
[2019-01-30 06:04] LABS: AGAP 15; ALB/GLOB RATIO 0.4; ALBUMIN 1.9 g/dL (3.5-5.0); ALKALINE PHOSPHATASE 97 U/L (32-122); BUN 48 mg/dL (8-22); CALCIUM 9.8 mg/dL (8.8-10.2); CHLORIDE 100 mmol/L (98-107); COSMO 291; CREATININE 1.4 mg/dL (0.7-1.2); ESTIMATED GFR > 60; GLUCOSE 248 mg/dL (70-104); GOT 24 U/L (10-34); GPT 11 U/L (10-44); POTASSIUM 3.8 mmol/L (3.5-5.1); SODIUM 135 mmol/L (136-145); TCO2 20 mmol/L (25-35); TOTAL BILIRUBIN 1.18 mg/dL (0.20-1.00); TOTAL PROTEIN 6.9 g/dL (6.3-8.3)
--- NOTE | 2019-01-30 06:49 | Diag Imaging Result Doc PS360 ---
CHEST-PORTABLE - 01/30/2019 INDICATION: respiratory failure COMPARISON: 01/29/2019 FINDINGS: Support lines and tubes are stable. Stable cardiomegaly. Stable opacification of the left lung base. There is been decrease in the right basilar infiltrate. No new infiltrates. IMPRESSION: Improved aeration of the right lung. Electronically signed by Sid Carlson 01/30/2019 6:47 AM
--- NOTE | 2019-01-30 08:07 | PROGRESS NOTE ---
DATE: 01/30/2019 INTERVAL HISTORY: No acute events overnight. He continues to require pressor medications. He was detected to have MRSA pneumonia. His mental status remains unchanged. SUBJECTIVE: The patient is intubated and is not able to answer any questions. OBJECTIVE: Vital Signs: He has been afebrile. Pulse of 55, respiratory rate 14, blood pressure 142/66. He is on norepinephrine of 18. He is saturating 100% on ventilator. General: Not responding to painful stimuli. He does have good cough. HEENT: Pupils are bilaterally equal, reacting to light. No pallor, cyanosis, clubbing, or icterus. Lungs: Air entry bilaterally equal. No wheeze, rhonchi, crackles. Cardiovascular: S1, S2 normal. No murmur, rub, or gallop. Abdomen: Soft, nontender. Active bowel sounds. Extremities: No lower extremity edema. He has a nasogastric tube, endotracheal tube, and a urine catheter. LABORATORY DATA: Labs suggestive of leukocytosis, normocytic anemia, thrombocytosis. He is also receiving steroids though. His ABG is largely unremarkable. He does have elevated BUN and creatinine. MICROBIOLOGY: One of the two blood cultures is growing gram-positive cocci. Sputum is growing methicillin-resistant staphylococcus aureus. IMAGING: Chest x-ray performed this morning suggests improved aeration of the right lung. ASSESSMENT AND PLAN: 1. Septic shock due to Morganella originating from cholecystitis, and now right lower lobe methicillin-resistant staphylococcus aureus pneumonia. Continue intravenous Zosyn and intravenous linezolid as per Infectious Disease recommendation. Continue norepinephrine to maintain MAP more than 65 mmHg. He is status post CT-guided cholecystotomy on 01/24/2019 for cholecystitis. 2. Primary respiratory failure leading to possibly cardiac arrest on 01/28/2019, status post resuscitation lasting for about 2 to 4 minutes, and intubation. Continue mechanical ventilation as per Pulmonology recommendation. Propofol for sedation. Proton pump inhibitors for stress ulcer prophylaxis, and enoxaparin for deep venous thrombosis prophylaxis. 3. Toxic metabolic encephalopathy since presentation. CT head did not have any acute intracranial pathology, except old right parietal infarct. In the future, I may consider getting electroencephalogram once he is off sedation, if his mental status does not improve. 4. History of cardiomyopathy with ejection fraction of 30%, status post automatic implantable cardioverter-automatic implantable cardioverter-defibrillator. Continue home amiodarone, and hold Lasix as well as carvedilol at the moment. 5. Acute kidney injury in the setting of septic shock. I will continue to resuscitate him with intravenous fluid resuscitation, and continue intravenous steroids which have been started for relative adrenal insufficiency. 6. Disposition. I will continue to monitor the patient inside the intensive care unit. His condition is critical. Prognosis is guarded. TIME SPENT: More than 30 minutes of critical care time was spent in taking care of this patient. cc: Gabriel Bauman MD
[2019-01-30] MEDS: CORDARONE PO SCH (08:19)
[2019-01-30] MEDS: MIRALAX PO SCH (08:19)
[2019-01-30] MEDS: COLCRYS NG SCH ×2 (08:19→20:47)
[2019-01-30] MEDS: ZYVOX 600 MG/D5W 600 MG/300 ML IVPB IV SCH ×2 (08:24→20:47)
[2019-01-30] MEDS: DULCOLAX PR SCH ×3 (08:24→20:46)
--- NOTE | 2019-01-30 09:03 | GENERAL SURGERY PROGRESS NOTE ---
DATE: 01/30/2019 Discussed the case with nurse. The patient is still doing about the same. He is still on the ventilator. Neurologically, he is waking up slightly per the nurse. Cholecystostomy tube seems to be still draining. From a surgical point of view, just continue current treatment and continue monitoring. cc: Taqueria Cabrales MD
--- NOTE | 2019-01-30 09:05 | ECHO REPORT ---
ORDER DATE: 01/28/2019 MEASUREMENTS: Left ventricular internal diameter in diastole 6.6, aortic root 3.0, left atrium 4.5. SUMMARY: 1. Fair quality study. 2. Aortic valve is trileaflet and opens normally on 2-dimensional images. Mitral, tricuspid, and pulmonic valves are without evidence of structural abnormality. The aortic root is normal in size. 3. Moderate left ventricular enlargement with upper normal wall thickness demonstrated. Estimated left ventricular ejection fraction is approximately 20% in the setting of severe global hypokinesis. Left atrium is mildly enlarged. The right atrium and right ventricle are normal in size with grossly preserved right ventricular systolic function. Pacemaker lead is evident in the right atrium. Pacemaker/defibrillator leads evident in the right ventricle. 4. Tiny posterior pericardial effusion demonstrated. 5. Appearance of inferior vena cava suggests normal central venous pressure. cc: MD Cristal Leon PA
[2019-01-30] MEDS: CUBICIN 600 MG in NS 100 ML IV SCH (09:07)
--- NOTE | 2019-01-30 09:56 | INFECTIOUS DISEASE PROGRESS NO ---
DATE: 01/30/2019 PRESENT ILLNESS: The patient is being treated for a Morganella bacteremia, which I think originated from his cholecystitis. The patient also has a methicillin-resistant Staphylococcus aureus pneumonia. Today, 1 of his 2 blood cultures is growing a gram-positive coccus which I think also will be identified as methicillin-resistant Staphylococcus aureus. MEDICATIONS: This is the 9th day of treatment with Zosyn for the patient's Morganella bacteremia and day 1 of treatment with Zyvox for the patient's methicillin-resistant Staphylococcus aureus pneumonia. I have started the patient on daptomycin for his gram-positive coccal bacteremia which I think will be identified as methicillin-resistant Staphylococcus aureus. The daptomycin does not get into the lung well and cannot be used for pulmonary infections. On the other hand, Zyvox can treat pulmonary infections but is not credential to treat bacteremia. Therefore, I will be using a combination of daptomycin and Zyvox. PHYSICAL EXAMINATION: Vital Signs: Temperature is 98 degrees, pulse 55, respirations 12, blood pressure 150/62. General: This is a chronically ill-appearing, elderly male. He is in no acute distress. Head, Eyes, Ears, Nose, and Throat: The patient has been intubated. Orotracheal tube is in the mouth. No drainage is noted from the nose or ears. Neck: No apparent pain with moving his neck passively. Lungs: Clear to auscultation. Cardiovascular: Heart rate is regular. Thorax: The patient has a left chest pacemaker in place. The site is not swollen or tender. The patient has a pacemaker present on the left side. The site is not swollen and it does not appear to be tender. Neurologic: The patient is obtunded. He does not have a tremor. Abdomen: Soft and not tender. The patient's percutaneous cholecystostomy tube is in place. There is a fair amount of bile drainage coming out. LAB AND X-RAY: As mentioned above, 1 out of 2 blood cultures is growing gram-positive coccus. The sputum is growing methicillin-resistant Staphylococcus aureus. The patient's CBC shows a white count of 43,900, hemoglobin 9.3, and platelet count 471,000. Arterial blood gases show a pH of 7.43, a PO2 of 101, a pCO2 of 35. Creatinine is 1.4. GFR is greater than 60. ASSESSMENT AND PLAN: I am going to continue Zosyn for 4 more days of treatment for the Morganella organism. The patient is on day 1 of Zyvox which is being used to treat the patient's methicillin- resistant Staphylococcus aureus pneumonia and I started, today, daptomycin to treat the patient's gram-positive coccal bacteremia which I think will also pipe turner to be identified as being methicillin-resistant Staphylococcus aureus. COMORBIDITIES: The patient is elderly. He is a diabetic. He has sarcoidosis, congestive heart failure, and a permanent pacemaker in the left chest. cc: Chavo Benoit MD
[2019-01-30 12:05] LABS: ALLEN TEST YES; BE -2.5 mmoll (-3.0-3.0); BLOOD TYPE ARTERIAL; O2(CT) 14.3 mL/dL (15.0-23.0); O2HB 96.8 % (95.0-99.0); PCO2(98.6) 34 mmHg (35-45); PO2(98.6) 100 mmHg (60-100); SAMPLE BLOOD; SAO2 99.2 % (95.0-100.0); THB 10.4 g/dL (11.5-17.4); pH(98.6) 7.41 (7.35-7.45)
[2019-01-30 12:06] LABS: MODALITY VENTILATOR
[2019-01-30] MEDS: 1/2 NS 1,000 ML IV SCH (13:53)
[2019-01-30 14:04] LABS: URINE SOURCE CATH
[2019-01-30 14:13] LABS: BILIRUBIN URINE NEGATIVE (NEGATIVE); BLOOD URINE TRACE (NEGATIVE); COLOR YELLOW; GLUCOSE URINE NEGATIVE (NEGATIVE); KETONE URINE NEGATIVE (NEGATIVE); LEUKOCYTES URINE NEGATIVE (NEGATIVE); NITRITE URINE NEGATIVE (NEGATIVE); PH URINE 5.5; PROTEIN URINE TRACE mg/dL (NEGATIVE); SP GRAVITY URINE 1.018; TURBIDITY URINE HAZY (CLEAR); UROBILINOGEN URINE NORMAL (NORMAL)
[2019-01-30 14:54] LABS: UR EPITHELIAL CELLS <10 /HPF (<10); URINE BACTERIA NEGATIVE /HPF; URINE RBC <10 /HPF (<10); URINE WBC <10 /HPF (<10)
[2019-01-30 14:57] LABS: URINE CASTS NONE SEEN; URINE CRYSTALS URIC ACID PRESENT; URINE YEAST NONE SEEN
[2019-01-30] MEDS: LOVENOX SUBQ SCH (20:46)
--- NOTE | 2019-01-30 23:39 | PULMONOLOGY PROGRESS NOTE ---
DATE: 01/30/2019 SUBJECTIVE: The patient withdraws to pain. He does not respond to voice. He is currently not synchronizing well with mechanical ventilation. OBJECTIVE: The patient has been afebrile for the last 24 hours. Blood pressure 121/59, heart rate 56, respiratory rate 15, oxygen saturation 100%. HEENT: Pupils are equal but sluggish. Oropharynx appears dry. Neck is supple. Chest reveals occasional rhonchi bilaterally. Cardiac exam: S1, S2. Abdomen is soft, with cholecystostomy tube in place. Extremities are slightly cool to the touch. LABORATORY DATA: Sputum culture is growing Staphylococcus aureus. Blood culture is growing a gram-positive cocci. Arterial blood gas reveals pH 7.41, pCO2 of 34, pO2 of 100. DIAGNOSTIC DATA: Chest x-ray reveals bibasilar infiltrates, with some improvement on the right. IMPRESSION: A 68-year-old with: 1. Methicillin-resistant Staphylococcus aureus pneumonia. 2. Encephalopathy. 3. Nonischemic cardiomyopathy. 4. Acute hypercapnic respiratory failure. 5. Abnormal weight loss. 6. Adrenal insufficiency. 7. Acute cholecystitis. PLAN: 1. Continue full ventilatory support. 2. Continue steroid trial. 3. Continue antibiotics per Infectious Disease. 4. Daily weaning trials as tolerated. Mental status is delaying a rapid ventilator weaning process. Time Spent in Critical Care Management: 30+ minutes cc: Marcelo Duque MD [facility]
[2019-01-31] MEDS: MORPHINE IV PRN ×5 (00:08→20:12)
[2019-01-31] MEDS: HUMALOG SUBQ SCH ×7 (01:05→23:24)
[2019-01-31] MEDS: SOLU-MEDROL IV SCH ×3 (03:36→20:12)
[2019-01-31 04:27] LABS: ALLEN TEST YES; BE -1.4 mmoll (-3.0-3.0); BLOOD TYPE ARTERIAL; HCO3-(ACT) 23.8 mmoll (20.0-26.0); METHB 1.4 % (0.0-1.5); O2(CT) 12.8 mL/dL (15.0-23.0); O2HB 96.3 % (95.0-99.0); PCO2(98.6) 33 mmHg (35-45); PO2(98.6) 102 mmHg (60-100); SAMPLE BLOOD; SAO2 99.2 % (95.0-100.0); THB 9.3 g/dL (11.5-17.4); pH(98.6) 7.44 (7.35-7.45)
[2019-01-31 04:29] LABS: MODALITY VENTILATOR
[2019-01-31 04:38] LABS: ESTIMATED GFR > 60
[2019-01-31 04:42] LABS: AGAP 16; ALB/GLOB RATIO 0.5; ALBUMIN 1.8 g/dL (3.5-5.0); ALKALINE PHOSPHATASE 99 U/L (32-122); BUN 58 mg/dL (8-22); CALCIUM 8.8 mg/dL (8.8-10.2); CHLORIDE 98 mmol/L (98-107); COSMO 289; CREATININE 1.4 mg/dL (0.7-1.2); GLUCOSE 217 mg/dL (70-104); GOT 28 U/L (10-34); GPT 13 U/L (10-44); HEMATOCRIT 27.3 % (42.0-52.0); HEMOGLOBIN 8.8 g/dL (14.0-18.0); MCH 28.4 PG (27-31); MCHC 32.2 g/dL (33-37); MCV 88.1 FL (81-99); MPV 10.5 FL (7.4-10.4); POTASSIUM 3.8 mmol/L (3.5-5.1); RBC 3.1 XMIL (4.7-6.1); RDW 16.2 % (11.5-14.5); SODIUM 133 mmol/L (136-145); TCO2 19 mmol/L (25-35); TOTAL BILIRUBIN 1.03 mg/dL (0.20-1.00); TOTAL PROTEIN 5.7 g/dL (6.3-8.3); WBC 43.76 X1000 (4.8-10.8)
[2019-01-31] MEDS: 1/2 NS 1,000 ML IV SCH ×2 (05:30→20:15)
[2019-01-31] MEDS: ZOSYN 3.375 GM in NS 50 ML IV SCH ×4 (05:31→23:04)
[2019-01-31] MEDS: PROTONIX PO SCH (07:01)
--- NOTE | 2019-01-31 07:36 | Diag Imaging Result Doc PS360 ---
EXAM: CHEST-PORTABLE INDICATION: respiratory failure TECHNIQUE: One view COMPARISON: 01/30/2019 FINDINGS: Support tubes and lines are in stable position. The left basilar opacification suggesting atelectasis and/or infiltrate is unchanged. No new consolidation is identified. Cardiac silhouette is stable. IMPRESSION: Stable chest. Electronically signed by Andrew Tracy 01/31/2019 7:34 AM
[2019-01-31] MEDS: LEVOPHED 8 MG in D5 1/2 NS 250 ML IV SCH ×2 (08:07→20:15)
[2019-01-31] MEDS: MIRALAX PO SCH (08:11)
[2019-01-31] MEDS: CUBICIN 600 MG in NS 100 ML IV SCH (08:11)
[2019-01-31] MEDS: DULCOLAX PR SCH ×2 (08:11→20:13)
[2019-01-31] MEDS: COLCRYS NG SCH ×3 (08:11→21:40)
[2019-01-31] MEDS: ZYVOX 600 MG/D5W 600 MG/300 ML IVPB IV SCH ×2 (08:11→20:12)
--- NOTE | 2019-01-31 08:24 | GENERAL SURGERY PROGRESS NOTE ---
DATE: 01/31/2019 SUBJECTIVE: Discussed the case with the nurse. Patient seems to be doing about the same. He is on Levophed, still on the ventilator. OBJECTIVE: His cholecystostomy tube still has some drainage, but his white blood cell count continues to be elevated at 43. PLAN: From a surgical point of view, just continue supportive care. Overall prognosis is likely poor. cc: Taqueria Cabrales MD
--- NOTE | 2019-01-31 09:20 | PROGRESS NOTE ---
DATE: 01/31/2019 INTERVAL HISTORY: No acute events overnight. His sedation was turned off and after that he had started becoming responsive and he was moving his extremities. He was also fighting the ventilator. SUBJECTIVE: He appears to be intermittently answering my questions by yes and no, though he was not squeezing hands. VITALS: Temperature 97.3 degrees, pulse 59, respiratory rate 10, blood pressure 115/62. He is saturating 100% on mechanical ventilation. PHYSICAL EXAMINATION: Pupils are bilaterally equal, reactive to light. He has nasogastric tube. He has endotracheal tube. He has urine catheter, is still requiring pressors.Lungs: Air entry bilaterally equal. No wheeze, rhonchi, or crackles. Cardiovascular: S1, S2 normal. No murmur or gallop. Abdomen: Soft, nontender. Right upper quadrant has a cholecystotomy drain. Active bowel sound. Extremity: No lower extremity edema. DATA: On input and output, it is suggested that the accordion drain is still draining about 250 mL of output. LABS: Suggestive of leukocytosis, normocytic anemia, thrombocytosis. His ABG is largely unremarkable with adequate pO2. He does have elevated BUN and creatinine, which could be related to steroid use. MICROBIOLOGY: Blood culture 1 of the 2 is growing coagulase-negative Staphylococcus. IMAGING: Chest x-ray today suggests essentially stable chest. ASSESSMENT AND PLAN: 1. Septic shock due to Morganella originating from cholecystitis and right lower lobe Methicillin resistant staphylococcus aureus pneumonia. Continue intravenous Zosyn and linezolid as per Infectious Disease recommendation. Continue norepinephrine to maintain MAP more than 65 mmHg. I will start him on midodrine to wean off from norepinephrine. He is status post CT-guided cholecystotomy drain on January 24, which is which has ongoing output. 2. Primary respiratory failure leading to possibly cardiac arrest on January 28 status post resuscitation lasting for 2 to 4 minutes and intubation. He appears to be breathing spontaneously on current ventilator. He is off propofol sedation. I will give him intravenous morphine as needed since he was fighting ventilator and chewing the endotracheal tube. I will keep him on proton pump inhibitors for stress ulcer prophylaxis, enoxaparin for deep venous thrombosis prophylaxis. Appreciate pulmonology recommendations about extubation soon. 3. Toxic metabolic encephalopathy since presentation. CT head did not have any acute intracranial pathologies. His mental status appears to be slightly better today than on my brief encounter before intubation. I will continue to monitor. 4. History of cardiomyopathy with ejection fraction of 30% status post AICD. Continue home amiodarone and continue to hold carvedilol and Lasix. 5. Acute kidney injury in the setting of septic shock. Continue to resuscitate him with intravenous fluids. His elevated BUN could be related to intravenous steroid use which has been started for relative adrenal insufficiency. DISPOSITION: More than 30 minutes of critical care time was spent in taking care of this patient. I will continue to monitor patient inside ICU. Plan of care discussed with nursing team. Yesterday I went to the bedside and had a detailed discussion about plan of care with the patient's . cc: Gabriel Bauman MD
[2019-01-31] MEDS: PROAMATINE PO SCH ×4 (09:25→16:40)
[2019-01-31] MEDS: CORDARONE PO SCH (09:25)
[2019-01-31] MEDS: ROCEPHIN 2 GM in NS 50 ML IV SCH (09:52)
--- NOTE | 2019-01-31 10:32 | INFECTIOUS DISEASE PROGRESS NO ---
DATE: 01/31/2019 PRESENT ILLNESS: The patient has been treated for his Morganella bacteremia, and his antibiotic has been stopped. He does have a cholecystostomy tube in place to prevent recurrence of the infection. The patient has 1 of 2 blood cultures positive for coagulase- negative Staph. This is a contaminant and does not require treatment. The patient does have methicillin-resistant Staph aureus pneumonia. The patient does have a marked leukocytosis. I think certainly some of it is from his methicillin-resistant Staph aureus pneumonia. However, the patient is on high doses of steroids, which could be contributing to the leukocytosis. MEDICATIONS: The patient has completed his treatment for Morganella, and the antibiotic used for that has been discontinued. As regarding the patient's methicillin-resistant Staph aureus pneumonia, he is on two antibiotics. One is Zyvox to treat the pneumonia, but Zyvox has not been approved to treat methicillin-resistant Staph aureus bacteremia. The other antibiotic is daptomycin, which treats the methicillin-resistant Staph aureus bacteremia, but daptomycin does not treat any pulmonary infections because the medication does not get into the lung tissue well. PHYSICAL EXAMINATION: Vital Signs: Temperature is 98 degrees, pulse 59, respirations 10, blood pressure 115/62. General: This is a chronically ill-appearing, elderly male. He is intubated and is very lethargic. HEENT: The patient has an orotracheal and nasogastric tube in place. He does not have any drainage from his nose or ears. Neck: There was no stiffness. Lungs: Clear to auscultation. Cardiovascular: Heart rate is regular. Thorax: The patient has a pacemaker present on the left side. The site is not swollen or draining. Abdomen: Soft and nontender. A cholecystostomy tube is present. Extremities: The patient has a PICC in the left arm. The site is not swollen or draining. Neurologic: The patient has a decreased level of consciousness. He did open his eyes today, and he did give a positive blink reaction, and also he appeared to track with his eyes. IMAGING AND LABORATORY DATA: Chest x-ray shows a left lower lobe pneumonia/atelectasis. Sputum grew methicillin-resistant Staph aureus. The patient's CBC shows a white count of 43,760, hemoglobin 8.8, and platelet count 480,000. Blood gases show a pH of 7.44, PO2 of 102, pCO2 of 33. Creatinine is 1.4. GFR is greater than 60. One of two blood cultures is growing a coagulase- negative Staph. This is a contaminant. ASSESSMENT AND PLAN: The patient does have methicillin-resistant pneumonia, and he also had cholecystitis, but now cholecystostomy tube is in place, and I do not think the patient has active cholecystitis currently. My plan now is to treat the patient's methicillin- resistant Staph aureus with the combination of Zyvox and daptomycin. This is day 2 of Zyvox, and day 1 of daptomycin. The patient has a cholecystostomy in place, and this should prevent the gallbladder from becoming inflamed again. The patient has 1/2 blood cultures positive for coagulase- negative staph, and as mentioned above, it is a contaminant and does not require antibiotic treatment. The patient will require 6 weeks of antibiotic treatment for the patient's Morganella bacteremia because the bacteremia could have hematogenously infected the patient's pacemaker. Therefore, I am going to start the patient back on an antibiotic, which will be Rocephin 2gm IV daily. The patient has had 2 weeks of treatment, and will require 4 more weeks. COMORBIDITIES: The patient is elderly. He also is a diabetic, and he has sarcoidosis, congestive heart failure, and he has a permanent pacemaker on the left chest. cc: MD KELSEY Nieves
[2019-01-31] MEDS: LOVENOX SUBQ SCH (20:13)
[2019-01-31] MEDS ORDERED: LASIX IV ONE (20:46)
[2019-01-31] MEDS ORDERED: DUONEB (A & A) INH PRN (20:47)
[2019-01-31] MEDS: DUONEB (A & A) INH SCH (21:03)
--- NOTE | 2019-01-31 21:41 | Diag Imaging Result Doc PS360 ---
CHEST-PORTABLE - 01/31/2019 9:00 PM INDICATION: Decline in Resp status COMPARISON: 5:20 AM FINDINGS: Stable nasogastric tube. Stable right PICC line. The endotracheal tube and temperature probe have been removed. Stable pacemaker. Stable cardiomegaly. Stable significant opacification of the left lung base. Trace patchy infiltrate or atelectasis at the right lateral lung base. IMPRESSION: Endotracheal tube removed. Otherwise no significant change from prior. Electronically signed by Sid Carlson 01/31/2019 9:39 PM
--- NOTE | 2019-01-31 22:25 | PULMONOLOGY PROGRESS NOTE ---
DATE: 01/31/2019 SUBJECTIVE: The patient is more awake this morning. He remains on mechanical ventilation. He will follow simple commands intermittently. OBJECTIVE: The patient has been afebrile for the last 24 hours. BP 136/58, heart rate 58, respiratory rate 16, oxygen saturation 98%. HEENT: Pupils are equal and reactive. Oropharynx appears clear. Neck is supple. Chest reveals occasional rhonchi bilaterally. Cardiac exam: S1, S2. Abdomen is obese and soft. Extremities reveal trace edema. LABORATORY DATA: White blood count 43,000, hemoglobin 8.8, platelet count 480,000. Sodium 133, potassium 3.8, chloride 18, bicarbonate 19, BUN 58, creatinine 1.4. DIAGNOSTIC DATA: Chest x-ray reveals infiltrate at the left base which has not changed. IMPRESSION: A 68-year-old with: 1. Methicillin-resistant Staphylococcus aureus pneumonia. 2. Encephalopathy which is improving. 3. Nonischemic cardiomyopathy. 4. Acute hypercapnic respiratory failure. 5. Adrenal insufficiency. 6. Abnormal weight loss. 7. Acute cholecystitis. PLAN: 1. Spontaneous breathing trial this morning. Anticipate extubation, given improvement in mental status. 2. Continue steroid trial. 3. Continue antibiotics per Infectious Disease. 4. Overall prognosis is guarded. Agree with ongoing end-of-life discussions. Critical Care Time: 35 minutes cc: Marcelo Duque MD MTDD
[2019-02-01] MEDS: DUONEB (A & A) INH SCH ×4 (03:32→21:38)
[2019-02-01 04:47] LABS: ALLEN TEST YES; BE -2.4 mmoll (-3.0-3.0); BLOOD TYPE ARTERIAL; HCO3-(ACT) 23.1 mmoll (20.0-26.0); METHB 0.6 % (0.0-1.5); O2(CT) 6.9 mL/dL (15.0-23.0); O2HB 94.8 % (95.0-99.0); PCO2(98.6) 38 mmHg (35-45); PO2(98.6) 65 mmHg (60-100); SAMPLE BLOOD; SAO2 98.8 % (95.0-100.0); THB 5.1 g/dL (11.5-17.4); pH(98.6) 7.38 (7.35-7.45)
[2019-02-01 04:48] LABS: MODALITY COOL AEROSOL
[2019-02-01 05:24] LABS: HEMATOCRIT 26.6 % (42.0-52.0); HEMOGLOBIN 8.8 g/dL (14.0-18.0); MCH 28.9 PG (27-31); MCHC 33.1 g/dL (33-37); MCV 87.2 FL (81-99); MPV 10.2 FL (7.4-10.4); RBC 3.05 XMIL (4.7-6.1); RDW 15.7 % (11.5-14.5); WBC 32.44 X1000 (4.8-10.8)
[2019-02-01 05:41] LABS: ALB/GLOB RATIO 0.4; ALBUMIN 1.9 g/dL (3.5-5.0); CREATININE 1.5 mg/dL (0.7-1.2); POTASSIUM 3.3 mmol/L (3.5-5.1); TOTAL BILIRUBIN 1.16 mg/dL (0.20-1.00); TOTAL PROTEIN 6.2 g/dL (6.3-8.3)
--- NOTE | 2019-02-01 06:02 | GENERAL SURGERY PROGRESS NOTE ---
DATE: 02/01/2019 The patient was extubated yesterday. His main issue at this point is that he does not seem to be tolerating his tube feeds. They have held his tube feeds. There was some concern of potential aspiration. He is still on Levophed for his blood pressure. Cholecystostomy tube is still in place with some drainage. His white blood cell count is still elevated at 32 today, but that is down from yesterday's 43. His bilirubin is remaining just slightly above normal, but his remaining liver function tests appear to be okay. From a surgical point of view, just recommend continue current treatment. Nothing new to add. cc: Taqueria Cabrales MD
[2019-02-01] MEDS: HUMALOG SUBQ SCH ×5 (06:14→21:23)
[2019-02-01] MEDS: PROTONIX PO SCH (06:15)
[2019-02-01] MEDS: ZOSYN 3.375 GM in NS 50 ML IV SCH (06:15)
--- NOTE | 2019-02-01 06:26 | Diag Imaging Result Doc PS360 ---
EXAM: CHEST-PORTABLE HISTORY: respiratory failure TECHNIQUE: Chest single view COMPARISON: 01/31/2019 FINDINGS: There are infiltrates and atelectasis in the left base with a small left pleural effusion. The heart remains enlarged. The central vascular prominence. No change in the right-sided PICC line, the nasogastric tube, or left pacemaker. IMPRESSION: Stable chest Electronically signed by Jeanmarie Mcbride 02/01/2019 6:23 AM
[2019-02-01] MEDS: SOLU-MEDROL IV SCH ×3 (06:43→22:00)
[2019-02-01] MEDS ORDERED: POTASSIUM CHLORIDE 10% LIQUID PO SCH (07:15)
[2019-02-01] MEDS: MORPHINE IV PRN ×2 (08:18→21:54)
[2019-02-01] MEDS: ZYVOX 600 MG/D5W 600 MG/300 ML IVPB IV SCH ×2 (08:29→20:35)
[2019-02-01] MEDS: ROCEPHIN 2 GM in NS 50 ML IV SCH (08:30)
--- NOTE | 2019-02-01 08:30 | PROGRESS NOTE ---
DATE: 02/01/2019 INTERVAL HISTORY: He was extubated yesterday, and he has been doing okay. He did have suspected event of aspiration overnight. His oxygen saturations were low and he was given a dose of Lasix. His tube feeds were held. SUBJECTIVE: He is alert. He is moaning and groaning, but does not engage in conversation meaningfully. He was able to tell me his full name. VITALS: Currently temperature of 97.1 degrees, pulse 56, respiratory rate 23, blood pressure 110/64, saturating 99% on Ventimask. PHYSICAL EXAMINATION: General: Not in any acute distress. Oral cavity: Moist. Lungs: Air entry bilaterally equal. No wheeze or rhonchi. Mild crackles in inframammary region bilaterally. Heart: S1, S2 normal. No murmur, rub, or gallop. Appears regular on monitor. Abdomen: Soft. Active bowel sounds. Nontender. He has a right upper quadrant biliary drain. Extremities: He has bilateral elbow and wrist joint swelling. He also has trace pedal edema. : A urine catheter. LABS: Suggestive of persistent leukocytosis, normocytic anemia, normal platelet count. His ABG is largely unremarkable. On BMP he has hypokalemia, which is being repleted. He does have elevated BUN and creatinine. MICROBIOLOGY: No new data. Blood culture was growing coagulase-negative Staph. IMAGING: Chest x-ray suggests no change in the right-sided PICC line. There was an NG tube and left pacemaker. ASSESSMENT AND PLAN: 1. Septic shock due to Morganella originating from cholecystitis and right lobe methicillin- resistant Staphylococcus aureus pneumonia. Continue intravenous ceftriaxone for a total of 6 weeks as per Infectious Disease recommendation for Morganella, day 1 being January 17. Continue linezolid and daptomycin for methicillin-resistant Staphylococcus aureus pneumonia as per Infectious Disease. I appreciate recommendation about stopping Zosyn. He is status post cholecystotomy drain on January 24 with around 250 mL output yesterday. 2. Toxic metabolic encephalopathy since presentation. CT head did not have any acute intracranial pathology. He is alert, but still not oriented. Certainly, toxic metabolic encephalopathy is a possibility. On current examination, he is moving all his extremities equally, except the right upper extremity which has lesser movement. I could not appreciate any obvious facial droop, though he does have extreme tenderness of bilateral wrist and elbow joint. His echocardiogram had ejection fraction of 30% with severe global hypokinesia. I will consider further stroke workup according to his course. 3. History of cardiomyopathy with ejection fraction of 30% status post automatic implantable cardioverter defibrillator. Continue home amiodarone, and I will add his Lasix back considering worsening edema. 4. Acute kidney injury in the setting of septic shock. Currently appears to be largely stable, though he does have elevated BUN and creatinine. I will continue to monitor. He has been on intravenous steroids for relative adrenal insufficiency. 5. He is status post cardiac arrest on January 28, primarily due to respiratory arrest and now was extubated on January 31. DISPOSITION: His condition is still critical. Plan of care discussed with nursing team. All of their questions have been answered. cc: Gabriel Bauman MD
[2019-02-01] MEDS: CUBICIN 600 MG in NS 100 ML IV SCH (08:48)
[2019-02-01] MEDS: COLCRYS NG SCH ×2 (09:55→20:37)
[2019-02-01] MEDS: MIRALAX PO SCH (09:56)
[2019-02-01] MEDS: PROAMATINE PO SCH ×3 (09:57→16:42)
[2019-02-01] MEDS: CORDARONE PO SCH (09:58)
--- NOTE | 2019-02-01 10:02 | INFECTIOUS DISEASE PROGRESS NO ---
DATE: 02/01/2019 PRESENT ILLNESS: Mr. Benoit is being treated for a Morganella bacteremia. There is also a methicillin-resistant Staph aureus pneumonia with leukocytosis. MEDICATIONS: He is receiving Zyvox 600 mg IV every 12 hours and Rocephin 2 g IV every 24 hours. PHYSICAL EXAMINATION: Vital Signs: Temperature is 97.1 degrees, pulse rate 58, respiratory rate 23, blood pressure 110/64, O2 saturation is 90% on a 50% cool air soft face mask. General: This is a chronically ill-appearing, elderly gentleman. He is lying in the bed. Mildly anxious and has recently pulled out his feeding tube. HEENT: Atraumatic, normocephalic. Oral mucous membranes are pink and moist. Conjunctivae are pale. Neck: Supple. Trachea is midline. Cardiovascular: Heart rate and rhythm are regular. Sinus rhythm on the monitor. Respiratory: Lung sounds have bilateral rhonchi and mild rales noted, diminished in the bases. Patient is coughing up yellow sputum. Abdomen: Soft, round, and tender to palpation. There is a cholecystectomy tube in place with dark brown green drainage in the bag. Bowel sounds are audible. Integumentary: There is a PICC line in place to the right upper arm. The site is without edema, erythema, or drainage. Skin is warm and dry with swelling noted to the right. The hand and forearm. Neurologic: He is awake and alert and verbalizing a few words, at times. He is moving the left side but no visible movement to the right. LABORATORY AND X-RAY: Today his white count is 32.44, hemoglobin 8.8, platelet count 473,000. He is 98% on a 40% cool air soft face mask. This morning his pH is 7.38, pCO2 of 38, PO2 65, HCO3 23.1. Creatinine is 1.5. GFR is 56, total bilirubin is 1.16, AST 24, ALT 14, alkaline phosphatase 96. He had a previous Morganella morganii in his blood and methicillin-resistant Staph aureus that grew in his sputum. Chest x-ray today shows stable infiltrates and atelectasis in the left base. ASSESSMENT AND PLAN: Mr. Benoit has a methicillin-resistant Staph aureus pneumonia. Today his white count is coming down so we will continue Zyvox as ordered. He is receiving Rocephin for the Morganella bacteremia which we will also continue. He requires 6 full weeks of treatment for the bacteremia due to the possible hematogenous infection to his pacemaker. These plans have been discussed with and recommended by Dr. Benoit. COMORBIDITIES: For Mr. Benoit includes that he is elderly with diabetes mellitus, sarcoidosis, congestive heart failure, and cardiomyopathy. Dictated by ALPHONSE Martinez for Chavo Benoit MD cc: Chavo Benoit MD MTDD
[2019-02-01] MEDS: POTASSIUM CHLORIDE 20 MEQ/SWI 20 MEQ/100 ML IVPB IV SCH ×2 (10:42→12:48)
[2019-02-01] MEDS: DULCOLAX PR SCH ×2 (12:09→20:25)
[2019-02-01] MEDS: CLINIMIX E 4.25%-5% SOLUTION 1,000 ML IV SCH (13:33)
--- NOTE | 2019-02-01 14:38 | PULMONOLOGY PROGRESS NOTE ---
DATE: 02/01/2019 SUBJECTIVE: The patient is awake and alert. With repeated requests, he will answer questions with a one-word answer. He pulled his NG tube this morning. Possible aspiration event last evening. OBJECTIVE: Vital Signs: The patient has been afebrile for the last 24 hours. He continues to require Levophed for hypotension. Blood pressure 106/53, heart rate 65, respiratory rate 19, oxygen saturation 95% on 50% face mask. HEENT: Pupils are equal and reactive. Oropharynx is clear. Neck: Supple. Chest: Reveals occasional rhonchi bilaterally. Cardiac: S1, S2. Abdomen: Soft. Extremities: Without edema. LABORATORY DATA/DIAGNOSTICS: Chest x-ray reveals persistent infiltrates at the left base. White blood count 90473, hemoglobin 8.8, platelet count 473,000. Sodium 133, potassium 3.3, chloride 99, BUN 63, creatinine 1.5, glucose 220. Arterial blood gas reveals a pH 7.38, pCO2 of 38, PO2 of 65. IMPRESSION: A 68-year-old with: 1. Methicillin-resistant Staphylococcus aureus pneumonia. 2. Encephalopathy with marginal improvement. 3. Nonischemic cardiomyopathy. 4. Acute hypercapnic respiratory failure. 5. Acute hypoxemic respiratory failure. 6. Adrenal insufficiency. 7. Acute cholecystitis. PLAN: 1. Anticipate swallowing study today. I suspect he will fail a swallowing study. 2. We will initiate Clinimix. 3. Continue steroid trial. 4. Continue antibiotics per Infectious Disease. 5. Overall prognosis is guarded. cc: Marcelo Duque MD
[2019-02-01] MEDS: LOVENOX SUBQ SCH (20:35)
[2019-02-02] MEDS ORDERED: HALDOL IV ONE (00:48)
[2019-02-02] MEDS ORDERED: HALDOL ONE (00:56)
[2019-02-02] MEDS: CLINIMIX E 4.25%-5% SOLUTION 1,000 ML IV SCH ×2 (00:58→12:00)
[2019-02-02] MEDS: HALDOL IM PRN (03:01)
[2019-02-02] MEDS: DUONEB (A & A) INH SCH ×4 (03:36→21:23)
[2019-02-02 04:28] LABS: ALLEN TEST YES; BE -2.2 mmoll (-3.0-3.0); BLOOD TYPE ARTERIAL; HCO3-(ACT) 23.2 mmoll (20.0-26.0); METHB 1.3 % (0.0-1.5); O2(CT) 11.4 mL/dL (15.0-23.0); O2HB 93.3 % (95.0-99.0); PCO2(98.6) 36 mmHg (35-45); PO2(98.6) 68 mmHg (60-100); SAMPLE BLOOD; SAO2 96.2 % (95.0-100.0); THB 8.6 g/dL (11.5-17.4)
[2019-02-02 04:29] LABS: MODALITY ROOM AIR
[2019-02-02] MEDS: HUMALOG SUBQ SCH ×4 (04:55→20:31)
[2019-02-02] MEDS: PROTONIX IV SCH (06:02)
[2019-02-02] MEDS: SOLU-MEDROL IV SCH ×3 (06:02→22:41)
[2019-02-02] MEDS: SODIUM CHLORIDE 0.9% INJ SCH (06:02)
[2019-02-02 06:22] LABS: HEMATOCRIT 24.9 % (42.0-52.0); HEMOGLOBIN 7.9 g/dL (14.0-18.0); MCH 27.5 PG (27-31); MCHC 31.7 g/dL (33-37); MCV 86.8 FL (81-99); MPV 10.4 FL (7.4-10.4); RBC 2.87 XMIL (4.7-6.1); RDW 15.3 % (11.5-14.5); WBC 20.89 X1000 (4.8-10.8)
[2019-02-02 06:59] LABS: ALB/GLOB RATIO 0.4; ALBUMIN 1.8 g/dL (3.5-5.0); CALCIUM 9.1 mg/dL (8.8-10.2); CREATININE 1.5 mg/dL (0.7-1.2); POTASSIUM 4.4 mmol/L (3.5-5.1); TOTAL BILIRUBIN 0.99 mg/dL (0.20-1.00); TOTAL PROTEIN 5.8 g/dL (6.3-8.3)
[2019-02-02] MEDS ORDERED: PROTONIX SCH (07:00)
--- NOTE | 2019-02-02 07:46 | Diag Imaging Result Doc PS360 ---
EXAM: CHEST-PORTABLE INDICATION: respiratory failure TECHNIQUE: One view COMPARISON: 02/01/2019 FINDINGS: Pulmonary venous congestion and interstitial thickening is approximately stable. The left-sided pleural fluid collection with adjacent atelectasis and/or infiltrate is unchanged. No new consolidation is identified. Cardiac silhouette is stable. The right PICC line is in stable position. IMPRESSION: Stable chest. Electronically signed by Andrew Tracy 02/02/2019 7:43 AM
[2019-02-02] MEDS: ZYVOX 600 MG/D5W 600 MG/300 ML IVPB IV SCH ×2 (07:48→20:11)
[2019-02-02] MEDS: COLCRYS NG SCH ×2 (08:09→20:11)
[2019-02-02] MEDS: LANTUS INSULIN SUBQ SCH (08:09)
[2019-02-02] MEDS: CORDARONE PO SCH (08:10)
[2019-02-02] MEDS: DULCOLAX PR SCH ×2 (08:10→20:11)
[2019-02-02] MEDS: MIRALAX PO SCH (08:10)
[2019-02-02] MEDS: PROAMATINE PO SCH ×3 (08:11→16:03)
[2019-02-02] MEDS: MORPHINE IV PRN ×2 (08:20→16:45)
--- NOTE | 2019-02-02 08:47 | PROGRESS NOTE ---
DATE: 02/02/2019 INTERVAL HISTORY: He pulled out his NG tube yesterday, and I am giving him some break from the NG tube. He was hypothermic and was started on Geraldo Hugger overnight. He was also started on haloperidol considering his agitation. SUBJECTIVE: He is alert, intermittently drowsy though. Occasionally answers questions by yes, no, but appears very confused. VITALS: Temperature of 96.4 degrees, pulse of 81, respiratory 16, blood pressure 129/61. He is saturating 97% on 4 L nasal cannula. PHYSICAL EXAMINATION: General: Not in acute distress. HEENT: He does have some secretions in his pharynx with gurgling sound. Pupils are bilaterally equal, reacting to light. Pulmonary: Air entry bilaterally equal. No wheeze or rhonchi. Mild inframammary crackles. Cardiovascular: S1, S2 normal. Appears regular. No murmur, rub, or gallop. Abdomen: Soft, nontender. Right quadrant drain. Extremities: His bilateral wrist and elbow joint swelling is decreasing. He has trace pedal edema. : Urine catheter. LABS: Suggestive of decreasing leukocytosis, normocytic anemia, normal platelet count. Acceptable ABG. He does have increasing BUN. His creatinine is stable at 1.5. He does have hyperglycemia for which glargine has been added. His pressors have been off since yesterday. MICROBIOLOGY: No positive new data. IMAGING: Chest x-ray suggests no acute pathology. He does have atelectasis and left-sided pleural fluid collection, which is unchanged. ASSESSMENT AND PLAN: 1. Septic shock due to Morganella from cholecystitis and right lower lobe methicillin-resistant Staphylococcus aureus pneumonia. Continue intravenous ceftriaxone for a total of 6 weeks with day 1, January 17. Continue linezolid for methicillin-resistant Staphylococcus aureus pneumonia, day 1 being January 29. He is s/p cholecystotomy drain on January 24. 2. Toxic metabolic encephalopathy since presentation. CT head did not have acute pathology, except chronic-appearing lacunar infarct involving right caudate. He is alert, but not oriented. I will treat his agitation with as-needed haloperidol and, once he is able to take by mouth, will add quetiapine. Continue to stimulate him with physical therapy. 3. History of chronic systolic congestive heart failure and cardiomyopathy with ejection fraction of 30% status post automatic implantable cardioverter defibrillator. I will resume his home amiodarone and other medications once we have enteral access. 4. Acute kidney injury in the setting of septic shock, currently stable. I will give him some intravenous fluids as needed. He is also on intravenous steroids for relative adrenal insufficiency. 5. He is status post cardiac arrest on January 28 primarily due to respiratory arrest and extubated on January 31. 6. Continue pantoprazole for stress ulcer prophylaxis and enoxaparin for deep vein thrombosis prophylaxis. DISPOSITION: I will continue to monitor patient in ICU. Plan of care discussed with the nursing team. Yesterday I had an extensive discussion of plan of care with the patient's at bedside. cc: Gabriel Bauman MD MTDD
[2019-02-02] MEDS: ROCEPHIN 2 GM in NS 50 ML IV SCH (10:14)
--- NOTE | 2019-02-02 10:58 | PROGRESS NOTE ---
DATE: 02/02/2019 SUBJECTIVE: Mr. Juan Benoit is a 68-year-old black male in our ICU. He has been seen by Dr. Cabrales and a cholecystostomy tube has been placed by Radiology. It is draining bile. It seems to be in place. He remains in the ICU. His white blood cell count is decreased from 32 to 20. His hematocrit is 25%. BUN and creatinine are 74 and 1.5. His sugar is high ranging from 228-369. Chest x-ray documents atelectasis and a small left-sided pleural effusion. PLAN: Will continue to follow the cholecystostomy tube placed per Radiology. It is draining bile. It appears that his white blood cell count is improving. He is on IV antibiotics per Dr. Benoit. He remains extubated. cc: Lisa Lawler MD
[2019-02-02] MEDS: LASIX IV SCH ×3 (11:00→22:42)
[2019-02-02] MEDS: ALBUMIN 25% IV SCH ×3 (11:00→22:41)
--- NOTE | 2019-02-02 16:01 | PULMONOLOGY PROGRESS NOTE ---
DATE: 02/02/2019 SUBJECTIVE: The patient is awake. He is slow to answer questions. He has had periods with confusion. He has audible rhonchi, but has difficulty coughing and clearing his secretions. OBJECTIVE: Vital Signs: Blood pressure 117/54, heart rate 82, respiratory rate 23, oxygen saturation 99% on 2 L per nasal cannula. HEENT: Pupils are equal and reactive. Oropharynx is clear. Neck: Neck is supple. Chest: Reveals rhonchi over the large airways. Cardiac exam: S1, S2. Abdomen: Soft with cholecystostomy tube in place. Extremities: Unchanged. LABORATORIES/X-RAYS: Sodium 131, potassium 4.4, chloride 100, bicarbonate 18. BUN 74, creatinine 1.5, glucose 346. White blood count 20.9 thousand, hemoglobin 7.9, platelet count 434,000. Arterial blood gas reveals pH 7.40, PCO2 of 36, PO2 of 68. Chest x-ray reveals atelectasis at the left base without change. IMPRESSION: A 68-year-old with: 1. Encephalopathy with continued confusion and fluctuating mental status. 2. Acute hypoxemic and acute hypercapnic respiratory failure. 3. Methicillin-resistant Staphylococcus aureus pneumonia. 4. Nonischemic cardiomyopathy. 5. Adrenal insufficiency. 6. Acute cholecystitis status post cholecystostomy drain tube placement. PLAN: 1. Continue current nutrition with Clinimix or ProcalAmine. 2. Consider NG tube placement. 3. Okay for ice chips 4. Prognosis remains poor given prolonged encephalopathy without ongoing improvement. cc: Marcelo Duque MD
--- NOTE | 2019-02-02 17:29 | Diag Imaging Result Doc PS360 ---
EXAM: CHEST-PORTABLE INDICATION: NGT placement TECHNIQUE: One view COMPARISON: 02/02/2019 FINDINGS: The newly placed NG tube projects below the diaphragm and is assumed to be in the lumen of the stomach in the expected position. The lungs are overpenetrated due to focus on the NG tube but they appear to be stable. IMPRESSION: Interval placement of NG tube as described. Electronically signed by Andrew Tracy 02/02/2019 5:27 PM
[2019-02-02] MEDS: LOVENOX SUBQ SCH (20:11)
[2019-02-02] MEDS: SEROQUEL NG SCH (20:11)
[2019-02-03] MEDS: HUMALOG SUBQ SCH ×7 (00:58→23:29)
[2019-02-03] MEDS: CLINIMIX E 4.25%-5% SOLUTION 1,000 ML IV SCH ×3 (01:24→23:56)
[2019-02-03] MEDS: DUONEB (A & A) INH SCH ×4 (03:14→22:51)
[2019-02-03 03:58] LABS: ALLEN TEST YES; BE -1.5 mmoll (-3.0-3.0); BLOOD TYPE ARTERIAL; HCO3-(ACT) 23.8 mmoll (20.0-26.0); METHB 0.9 % (0.0-1.5); O2(CT) 10.3 mL/dL (15.0-23.0); PCO2(98.6) 34 mmHg (35-45); PO2(98.6) 79 mmHg (60-100); SAMPLE BLOOD; SAO2 98.2 % (95.0-100.0); THB 7.5 g/dL (11.5-17.4); pH(98.6) 7.43 (7.35-7.45)
[2019-02-03 03:59] LABS: MODALITY CANNULA
[2019-02-03] MEDS: SODIUM CHLORIDE 0.9% INJ SCH (06:33)
[2019-02-03] MEDS: SOLU-MEDROL IV SCH ×3 (06:33→23:29)
[2019-02-03] MEDS: PROTONIX IV SCH (06:33)
[2019-02-03 06:48] LABS: ESTIMATED GFR > 60
[2019-02-03 06:50] LABS: AGAP 13; ALB/GLOB RATIO 0.9; ALBUMIN 3.1 g/dL (3.5-5.0); ALKALINE PHOSPHATASE 76 U/L (32-122); BUN 81 mg/dL (8-22); CALCIUM 8.9 mg/dL (8.8-10.2); CHLORIDE 99 mmol/L (98-107); COSMO 299; CREATININE 1.4 mg/dL (0.7-1.2); GLUCOSE 239 mg/dL (70-104); GOT 19 U/L (10-34); GPT 14 U/L (10-44); POTASSIUM 4.5 mmol/L (3.5-5.1); SODIUM 133 mmol/L (136-145); TCO2 21 mmol/L (25-35); TOTAL BILIRUBIN 0.85 mg/dL (0.20-1.00); TOTAL PROTEIN 6.4 g/dL (6.3-8.3)
[2019-02-03 07:22] LABS: HEMATOCRIT 21.4 % (42.0-52.0); HEMOGLOBIN 6.8 g/dL (14.0-18.0); MCH 28.5 PG (27-31); MCHC 31.8 g/dL (33-37); MCV 89.5 FL (81-99); MPV 10.4 FL (7.4-10.4); RBC 2.39 XMIL (4.7-6.1); RDW 15.7 % (11.5-14.5); WBC 18.88 X1000 (4.8-10.8)
--- NOTE | 2019-02-03 07:47 | Diag Imaging Result Doc PS360 ---
EXAM: CHEST-PORTABLE INDICATION: respiratory failure TECHNIQUE: One view COMPARISON: 02/02/2019 FINDINGS: The NG tube is in approximately stable position. Given differences in inspiration, pulmonary venous congestion and interstitial edema is approximately stable. The left-sided pleural effusion with adjacent atelectasis and/or infiltrate is unchanged. No new consolidation is identified. Cardiac silhouette is stable. IMPRESSION: Essentially stable chest. Electronically signed by Andrew Tracy 02/03/2019 7:45 AM
[2019-02-03] MEDS: LANTUS INSULIN SUBQ SCH (08:30)
[2019-02-03] MEDS: COLCRYS NG SCH ×2 (08:31→20:21)
[2019-02-03] MEDS: DULCOLAX PR SCH ×2 (08:31→20:25)
[2019-02-03] MEDS: ZYVOX 600 MG/D5W 600 MG/300 ML IVPB IV SCH ×2 (08:31→20:25)
[2019-02-03] MEDS: CORDARONE PO SCH (08:31)
[2019-02-03] MEDS: MIRALAX PO SCH (08:31)
[2019-02-03] MEDS: PROAMATINE NG SCH ×2 (08:40→20:54)
--- NOTE | 2019-02-03 08:53 | PROGRESS NOTE ---
DATE: 02/03/2019 INTERVAL HISTORY: He has been off norepinephrine. His blood pressure has been stable. NG tube was inserted one more time and his oral medications were resumed. He was also kept in restraints. In the morning time, he is drowsy more than yesterday. SUBJECTIVE: He does not engage in conversation meaningfully. VITAL SIGNS: He was hypothermic and was started on a Geraldo Hugger. Now, temperature is 98.1 degrees, pulse 81, respiratory rate 17, blood pressure 138/77, saturating 100% on 35% Ventimask. PHYSICAL EXAMINATION: He has gurgling sounds in the oral cavity. He has bilateral rhonchi. Cardiovascular: S1, S2 normal. Regular. No murmur, rub, or gallop. Abdomen: Soft, nontender. He has a right upper quadrant drain which is draining 300 mL in the last 24 hours. No lower extremity edema. He has a urine catheter and nasogastric tube. He is arousable to strong verbal stimuli. He occasionally says yes and no. He winces to painful stimuli, all extremities, but he is confused which is unchanged since presentation. LABS: Suggestive of decreasing leukocytosis. He does have normocytic anemia, normal platelet count, essentially normal ABG, elevated BUN, and stable creatinine. MICROBIOLOGY: No positive data. IMAGING: Suggests persistent left lower lobe atelectasis. ASSESSMENT AND PLAN: 1. Septic shock due to Morganella from cholecystitis and right lower lobe methicillin-resistant Staphylococcus aureus (MRSA) pneumonia. Continue intravenous ceftriaxone for a total of 6 weeks with day one 01/17/2019. Continue linezolid for pneumonia, day one 01/29/2019. He is status post cholecystotomy drain on January 24. He is off norepinephrine now and I will decrease midodrine to eventually stop it today. 2. Toxic metabolic encephalopathy since presentation. I think this is in the setting of septic shock. CT had chronic appearing lacunar infarct of the right caudate. Continue to address agitation with nighttime quetiapine and as-needed haloperidol. Continue physical therapy. 3. History of chronic systolic congestive heart failure and cardiomyopathy with an ejection fraction of 30%, status post automatic implantable cardioverter defibrillator. Continue home amiodarone. 4. Acute kidney injury in the setting of septic shock, currently stable. I will continue Venegas catheter management. 5. Relative adrenal insufficiency. His blood pressure has been stable for 24 hours. I will appreciate pulmonology recommendations about tapering it down. 6. Others. He is status post cardiac arrest on January 28, when he was intubated and then extubated on January 31. I will continue pantoprazole for stress ulcer prophylaxis and I will give deep venous thrombosis prophylaxis. I have serious concerns about the risk of aspiration with nasogastric tube feeding since previously he has had high residuals. I will continue intravenous Clinimix for nutrition at the moment. 7. Disposition. Continue to monitor patient in the intensive care unit. Palliative care team was on board for further goals of care. cc: Gabriel Bauman MD
[2019-02-03] MEDS: ROCEPHIN 2 GM in NS 50 ML IV SCH (10:08)
--- NOTE | 2019-02-03 10:58 | PROGRESS NOTE ---
DATE: 02/03/2019 Mr. Benoit' cholecystostomy tube is draining well. It is on suction. It is secure at his skin. Will continue to plan drainage from this tube on suction. cc: Lisa Lawler MD
[2019-02-03] MEDS: MORPHINE IV PRN ×3 (11:20→20:53)
--- NOTE | 2019-02-03 17:16 | PULMONOLOGY PROGRESS NOTE ---
DATE: 02/03/2019 SUBJECTIVE: The patient is arousable. He will not follow commands. He is periodically hypothermic requiring a warming blanket. OBJECTIVE: Vital Signs: The patient has been afebrile for the last 24 hours with periods of hypothermia. BP 148/91, heart rate 83, respiratory rate 17, oxygen saturation 94%. HEENT: Pupils are equal and reactive. Oropharynx is dry. Neck: Supple. Chest: Reveals scattered rhonchi bilaterally. Cardiac: S1, S2. Regular rhythm. Abdomen: Soft with diminished bowel sounds. Extremities: Cool to the touch. LABORATORIES: White blood count 18.8, hemoglobin 6.8, platelet count 400,000. Sodium 133, potassium 4.5, chloride 99, bicarbonate 21, BUN 81, creatinine 1.4. Chest x-ray reveals left basilar infiltrate with mild interstitial edema. No change from 02/02/2019. Arterial blood gas reveals a pH of 7.43, pCO2 of 34, and PO2 of 79. IMPRESSION: 1. A 68-year-old with encephalopathy with continued confusion and fluctuating mental status. This is hospital day 15. 2. Periodic hypothermia, likely related to brainstem dysfunction. 3. Methicillin-resistant Staphylococcus aureus pneumonia. 4. Nonischemic cardiomyopathy. 5. Adrenal insufficiency on replacement. 6. Acute cholecystitis status post cholecystectomy and drain placement. DISCUSSION: A 68-year-old with problems outlined above. Despite 15-day hospital stay, he continues to do poorly. I suspect his prognosis is poor. He may require a tracheostomy and a PEG tube if family wishes to pursue continued and ongoing aggressive care. PLAN: 1. Continue current nutrition. 2. Okay for ice chips. We will add additional humidification to his oxygen. 3. Prognosis is guarded. Would recommend re-engaging the palliative care nurse. cc: Marcelo Duque MD
[2019-02-03] MEDS: SEROQUEL NG SCH (20:21)
[2019-02-03] MEDS: LOVENOX SUBQ SCH (20:25)
[2019-02-04] MEDS: MORPHINE IV PRN ×3 (01:48→12:37)
[2019-02-04] MEDS: HALDOL IM PRN (02:19)
[2019-02-04] MEDS: DUONEB (A & A) INH SCH ×4 (03:07→21:08)
[2019-02-04] MEDS: HUMALOG SUBQ SCH ×4 (03:54→20:42)
[2019-02-04 04:35] LABS: ALLEN TEST YES; BE -0.7 mmoll (-3.0-3.0); BLOOD TYPE ARTERIAL; HCO3-(ACT) 24.4 mmoll (20.0-26.0); METHB 1.4 % (0.0-1.5); O2(CT) 13.7 mL/dL (15.0-23.0); O2HB 96.5 % (95.0-99.0); PCO2(98.6) 33 mmHg (35-45); PO2(98.6) 127 mmHg (60-100); SAMPLE BLOOD; SAO2 99.4 % (95.0-100.0); THB 9.9 g/dL (11.5-17.4); pH(98.6) 7.45 (7.35-7.45)
[2019-02-04 04:36] LABS: MODALITY COOL AEROSOL
[2019-02-04] MEDS: PROTONIX IV SCH ×2 (05:52→06:21)
[2019-02-04] MEDS: SODIUM CHLORIDE 0.9% INJ SCH ×2 (05:52→06:21)
--- NOTE | 2019-02-04 06:14 | GENERAL SURGERY PROGRESS NOTE ---
DATE: 02/04/2019 SUBJECTIVE: Patient seems to be doing about the same per the nursing staff. He is off pressors. OBJECTIVE: Vital Signs: Patient is currently afebrile. Vital signs stable. General: Resting. Cardiovascular: Regular rate and rhythm. Lungs: Some coarse sounds noted. Abdomen: Cholecystostomy tube in place with some bilious drainage. ASSESSMENT/PLAN: 68-year-old gentleman with bacteremia possibly from the gallbladder. Bacteremia possibly from the gallbladder. At this time continue biliary drainage with cholecystostomy tube. Continue supportive care. No immediate surgical intervention planned. cc: Taqueria Cabrales MD
[2019-02-04] MEDS: SOLU-MEDROL IV SCH ×3 (06:27→23:30)
--- NOTE | 2019-02-04 06:43 | Diag Imaging Result Doc PS360 ---
EXAM: CHEST-PORTABLE HISTORY: respiratory failure TECHNIQUE: Chest single view COMPARISON: 02/03/2019 FINDINGS: The heart remains enlarged. There is a left-sided pleural effusion with basilar atelectasis and possibly underlying infiltrates similar to the prior exam. Pulmonary edema persists. No change in the right sided PICC line or nasogastric tube. There is a left-sided pacemaker. IMPRESSION: No interval improvement. Electronically signed by Jeanmarie Mcbride 02/04/2019 6:41 AM
[2019-02-04 07:08] LABS: HEMATOCRIT 25.6 % (42.0-52.0); MCH 27.8 PG (27-31); MCHC 31.3 g/dL (33-37); MCV 88.9 FL (81-99); MPV 10.1 FL (7.4-10.4); RBC 2.88 XMIL (4.7-6.1); RDW 15.8 % (11.5-14.5); WBC 18.16 X1000 (4.8-10.8)
[2019-02-04 07:15] LABS: ESTIMATED GFR > 60
[2019-02-04 07:17] LABS: AGAP 9; ALB/GLOB RATIO 0.8; ALBUMIN 2.8 g/dL (3.5-5.0); ALKALINE PHOSPHATASE 81 U/L (32-122); BUN 84 mg/dL (8-22); CHLORIDE 98 mmol/L (98-107); COSMO 290; CREATININE 1.3 mg/dL (0.7-1.2); GLUCOSE 233 mg/dL (70-104); GOT 23 U/L (10-34); GPT 17 U/L (10-44); POTASSIUM 4.8 mmol/L (3.5-5.1); SODIUM 128 mmol/L (136-145); TCO2 21 mmol/L (25-35); TOTAL BILIRUBIN 0.79 mg/dL (0.20-1.00); TOTAL PROTEIN 6.4 g/dL (6.3-8.3)
[2019-02-04] MEDS ORDERED: HUMALOG SUBQ SCH (07:29)
[2019-02-04] MEDS ORDERED: PROTONIX ONE (07:32)
[2019-02-04] MEDS: ZYVOX 600 MG/D5W 600 MG/300 ML IVPB IV SCH ×2 (07:48→20:41)
[2019-02-04] MEDS ORDERED: SEROQUEL NG ONE (08:14)
[2019-02-04] MEDS: CORDARONE PO SCH (08:36)
[2019-02-04] MEDS: LANTUS INSULIN SUBQ SCH (08:36)
[2019-02-04] MEDS: COLCRYS NG SCH ×2 (08:36→20:42)
[2019-02-04] MEDS: MIRALAX PO SCH (08:37)
[2019-02-04] MEDS: DULCOLAX PR SCH ×2 (08:37→20:43)
[2019-02-04] MEDS: ROCEPHIN 2 GM in NS 50 ML IV SCH (08:38)
[2019-02-04] MEDS: PRILOSEC ORAL SUSPENSION PO SCH (08:38)
--- NOTE | 2019-02-04 08:44 | PROGRESS NOTE ---
DATE: 02/04/2019 INTERVAL HISTORY: He was agitated overnight and had received morphine which helped him. He continues to remain hyperglycemic. He continues to remain encephalopathic. SUBJECTIVE: He shouts, "Please help, please help," but does not engage in the clinical encounter meaningfully. VITAL SIGNS: He has been afebrile with temperature of 97.2 degrees. He is on Geraldo Hugger. Pulse of 86, respiratory rate 14, blood pressure 160/110. He is saturating 100% on 30% Ventimask. PHYSICAL EXAMINATION: General: He is restless. HEENT: Oral cavity is dry. He is shouting. Lungs: He has bilateral rhonchi and inspiratory crackles in bilateral inframammary region. Cardiovascular: S1, S2 normal. Regular. No murmur, rub, or gallop. Abdomen: Soft, nontender. Right upper quadrant cholecystotomy drain. Extremities: He is in bilateral upper extremity restraints. He is trying to come out of restraints. He is not moving his lower extremities today. However, he winces to painful stimuli, but it is hard to determine his responses. LABS: Suggestive of leukocytosis, normocytic anemia, close to normal platelet count, essentially unremarkable ABG, hyponatremia, elevated BUN, and stable creatinine. He is hyperglycemic. No new microbiological data. Chest x-ray suggests no interval improvement. ASSESSMENT AND PLAN: 1. Acute prolonged encephalopathy, likely toxic metabolic since presentation in the setting of hospital-acquired delirium and septic shock. CT scan head had chronic appearing lacunar infarct of right caudate. Could increase nighttime quetiapine dose and add an additional morning time quetiapine now. Follow up EKG tomorrow to check QTc interval. Continue as needed haloperidol. 2. Septic shock due to Morganella from cholecystitis on presentation and development of hospital- acquired right lower lobe MRSA pneumonia. Continue ceftriaxone for 6 weeks, day 1 is 01/17/2019; continue linezolid for pneumonia, day 1 is 01/29/2019. He is status post cholecystotomy drain on 01/24/2019. Surgical Team currently planning conservative management. He is off norepinephrine since 02/02/2019, and his midodrine has been tapered off. 3. Relative adrenal insufficiency. He has been started on intravenous methylprednisolone according to Pulmonology recommendations. I would appreciate weaning down plans. 4. Hyperglycemia in the setting of past intravenous steroid use. Increase insulin glargine and sliding scale dose to high scale. Follow up frequent blood sugars. His elevated BUN could be in the setting of intravenous steroid use. I would avoid Lasix considering he does have significant pulmonary vascular congestion and pleural effusion, and he is not in respiratory distress at the moment. 5. History of chronic systolic congestive heart failure and cardiomyopathy with ejection fraction 30%, status post AICD. Continue home amiodarone, and I will add carvedilol in the future. 6. Others. He is status post cardiac arrest on 01/28/2019 when he had sudden desaturation to high 70s to low 80s, and the nursing team could not feel the pulse, and he had required cardiopulmonary resuscitation and intubation for about 3 to 4 minutes. He was extubated on 01/31/2019. I will continue pantoprazole for stress ulcer prophylaxis and enoxaparin for DVT prophylaxis. Considering his serious risk of aspiration through NG tube feed, I am holding his NG tube and giving him intravenous Clinimix for nutrition. Previously, he did have very high NG tube residuals and suspected event of aspiration. 7. Disposition. There has not been any significant improvement in his encephalopathy since the day he was presented, and he has accrued even more medical problems. My goal is to address further goals of care with family today, and I will have Palliative Care Team evaluate and have further discussion of goals of care as well. Plan of care discussed with nursing team. In summary, Mr. Benoit initially presented for weakness, decreased oral intake, fever and encephalopathy and was found to be in septic shock. During hospitalization, one day he had an episode of desaturation to 80s thought to be related to aspiration of tube feeds and the bedside nursing team could not feel the pulse and so ACLS had been started and he was intubated. He had ROSC within 3-5 minutes. Since then, he was extubated but he continues to remain encephalopathic which is presumably toxic metabolic. cc: Gabriel Bauman MD [facility]ITAL[facility]el[facility]
[2019-02-04] MEDS: CLINIMIX E 4.25%-5% SOLUTION 1,000 ML IV SCH ×2 (11:42→23:30)
[2019-02-04] MEDS: COREG NG SCH ×2 (17:44→20:47)
--- NOTE | 2019-02-04 20:40 | PULMONOLOGY PROGRESS NOTE ---
DATE: 02/04/2019 SUBJECTIVE: The patient opens his eyes, but is slow to communicate. He has a weak cough effort. He is requiring intermittent NG suctioning. OBJECTIVE: The patient has been afebrile for the last 24 hours, BP 167/88, heart rate 78, respiratory rate 17, oxygen saturation 100% on 28% humidified mask.HEENT: Pupils are equal and reactive. Oropharynx appears better humidified with humidified mask. Neck is supple. Chest reveals rhonchi bilaterally with decreased breath sounds, left base. Cardiac: S1, S2. Abdomen is soft with, decreased bowel sounds. Extremities are unchanged. DIAGNOSTIC STUDIES: Chest x-ray reveals cardiomegaly with changes at the left base. White blood count 18,000, hemoglobin 8.0 platelet count 443,000. Arterial blood gas reveals pH 7.45, PCO2 of 33, PO2 of 127. Sodium 128, potassium 4.8, chloride 98, bicarbonate BUN 84, creatinine 1.3. IMPRESSION: A 68-year-old with: 1. Ongoing encephalopathy. 2. Methicillin-resistant Staphylococcus aureus pneumonia. 3. Nonischemic cardiomyopathy. 4. Adrenal insufficiency. 5. Acute cholecystitis status post cholecystostomy, drain placement. DISCUSSION: A 68-year-old with problems outlined above. He continues to do poorly. I have discussed this case with Dr. Bauman. Recommend palliative care nursing intervention and discussion with the family. If patient requires re-intubation, a tracheostomy would be recommended. If his p.o. intake remains poor, a PEG tube would be recommended. PLAN: 1. Continue current nutrition. 2. Antibiotics per Infectious Disease. 3. Ice chips as tolerated. 4. Overall prognosis is poor. cc: Marcelo Duque MD
[2019-02-04] MEDS: SEROQUEL NG SCH (20:41)
[2019-02-04] MEDS: LOVENOX SUBQ SCH (20:47)
[2019-02-05] MEDS: MORPHINE IV PRN ×4 (00:39→21:03)
[2019-02-05] MEDS: HUMALOG SUBQ SCH ×4 (02:06→20:49)
[2019-02-05] MEDS: DUONEB (A & A) INH SCH ×4 (03:34→22:42)
[2019-02-05 04:22] LABS: ALLEN TEST YES; BE 0.2 mmoll (-3.0-3.0); BLOOD TYPE ARTERIAL; HCO3-(ACT) 25.1 mmoll (20.0-26.0); METHB 0.7 % (0.0-1.5); O2HB 97.1 % (95.0-99.0); PCO2(98.6) 38 mmHg (35-45); PO2(98.6) 106 mmHg (60-100); SAMPLE BLOOD; SAO2 99.2 % (95.0-100.0); THB 10.1 g/dL (11.5-17.4); pH(98.6) 7.42 (7.35-7.45)
[2019-02-05 04:23] LABS: MODALITY CANNULA
[2019-02-05] MEDS: SOLU-MEDROL IV SCH ×3 (06:10→23:37)
[2019-02-05] MEDS: PRILOSEC ORAL SUSPENSION PO SCH (06:10)
[2019-02-05 06:14] LABS: HEMATOCRIT 28.6 % (42.0-52.0); HEMOGLOBIN 8.8 g/dL (14.0-18.0); MCH 27.7 PG (27-31); MCHC 30.8 g/dL (33-37); MCV 89.9 FL (81-99); MPV 10.2 FL (7.4-10.4); RBC 3.18 XMIL (4.7-6.1); RDW 16.2 % (11.5-14.5); WBC 18.61 X1000 (4.8-10.8)
--- NOTE | 2019-02-05 06:29 | GENERAL SURGERY PROGRESS NOTE ---
DATE: 02/05/2019 Discussed with nurse there is some discussion about potential palliative care from a surgical point of view, no immediate plans for surgical intervention. Patient seems to be doing about the same. His cholecystostomy tube is draining. We will potentially even leave the cholecystostomy tube in up to 6 weeks, but at this point, we will follow peripherally. cc: Taqueria Cabrales MD
[2019-02-05 06:37] LABS: AGAP 12; ALB/GLOB RATIO 0.8; ALBUMIN 2.8 g/dL (3.5-5.0); ALKALINE PHOSPHATASE 88 U/L (32-122); BUN 78 mg/dL (8-22); CALCIUM 9.6 mg/dL (8.8-10.2); CHLORIDE 102 mmol/L (98-107); COSMO 300; CREATININE 1.1 mg/dL (0.7-1.2); ESTIMATED GFR > 60; GLUCOSE 181 mg/dL (70-104); GOT 25 U/L (10-34); GPT 19 U/L (10-44); POTASSIUM 5.6 mmol/L (3.5-5.1); SODIUM 136 mmol/L (136-145); TCO2 22 mmol/L (25-35); TOTAL BILIRUBIN 0.76 mg/dL (0.20-1.00); TOTAL PROTEIN 6.5 g/dL (6.3-8.3)
[2019-02-05] MEDS ORDERED: PROTONIX SCH (07:00)
--- NOTE | 2019-02-05 07:10 | Diag Imaging Result Doc PS360 ---
EXAM: CHEST-PORTABLE 02/05/2019 HISTORY: respiratory failure TECHNIQUE: AP portable at 0539 COMMENT: There is an NG tube with its tip below the diaphragm. There is cardiomegaly. Compared to 02/04/2019 there is slight worsening of opacification of the left lower lobe. Otherwise are has been no significant change. IMPRESSION: Worsening atelectasis or pneumonia left lower lobe. Mild pulmonary edema. Electronically signed by Wil Kraus 02/05/2019 7:07 AM
--- NOTE | 2019-02-05 07:19 | EKG Report ---
Test Performed on : 02/05/2019 07:08:13 AM Test Reason : FOllow up QTc interval. Blood Pressure : / mmHG Vent. Rate : 083 BPM Atrial Rate : 084 BPM P-R Int : 000 ms QRS Dur : 122 ms QT Int : 424 ms P-R-T Axes : 000 057 217 degrees QTc Int : 498 ms Ventricular-paced rhythm Abnormal ECG When compared with ECG of 28-JAN-2019 11:34, Electronic ventricular pacemaker has replaced Sinus rhythm. Confirmed by Abhilash Guzman MD ([id number]) on 02/05/2019 11:08:47 PM
[2019-02-05] MEDS: ROCEPHIN 2 GM in NS 50 ML IV SCH (08:53)
[2019-02-05] MEDS: ZYVOX 600 MG/D5W 600 MG/300 ML IVPB IV SCH ×2 (08:53→20:00)
[2019-02-05] MEDS: DULCOLAX PR SCH ×3 (08:55→21:24)
[2019-02-05] MEDS: MIRALAX PO SCH (08:55)
[2019-02-05] MEDS: LANTUS INSULIN SUBQ SCH (08:55)
[2019-02-05] MEDS: COREG NG SCH ×2 (08:56→20:48)
[2019-02-05] MEDS: CORDARONE PO SCH (08:56)
[2019-02-05] MEDS: COLCRYS NG SCH ×2 (08:56→20:48)
[2019-02-05] MEDS ORDERED: KAYEXALATE NG ONE ×2 (09:07→19:36)
[2019-02-05] MEDS ORDERED: ALBUTEROL 0.5% INH CONC FOR HYPERKALEMIA INH ONE (12:08)
[2019-02-05] MEDS ORDERED: HUMULIN R IV ONE (12:09)
[2019-02-05] MEDS ORDERED: SODIUM BICARBONATE 8.4% IV ONE (12:09)
[2019-02-05] MEDS: CLINIMIX E 4.25%-5% SOLUTION 1,000 ML IV SCH (12:22)
[2019-02-05] MEDS: MERREM 2 GM in NS 100 ML IV SCH ×2 (13:16→20:49)
--- NOTE | 2019-02-05 16:52 | INFECTIOUS DISEASE PROGRESS NO ---
DATE: 02/05/2019 PRESENT ILLNESS: Mr. Benoit is being treated for methicillin-resistant Staphylococcus aureus pneumonia. There was also an Morganella bacteremia. MEDICATIONS: He has been receiving Zyvox 600 mg IV every 12 hours and Rocephin 2 g IV every 24 hours. Today we have changed the Rocephin to meropenem 2 g IV every 8 hours. PHYSICAL EXAMINATION: Vital Signs: Temperature is 97.7 degrees, pulse rate 75, respiratory rate 15, blood pressure 142/84. O2 saturation is 89% on 40% FiO2. General: This is a chronically ill- appearing elderly gentleman. He is lying in the bed, currently with mild respiratory distress. He does have bilateral wrist restraints in place and is occasionally trying to pull off his oxygen. HEENT: Atraumatic, normocephalic. Oral mucous membranes are pink and dry. Conjunctivae are pale. Neck: Supple. Trachea is midline. Respiratory: Lung sounds have some rales noted to the left lower lobe. Diminished lung sounds throughout. He is having some work of breathing with use of accessory muscles. Cardiovascular: Heart rate and rhythm are regular. Normal sinus rhythm on the monitor. Abdomen: Soft, obese, and nontender to palpation. Bowel sounds are active. There is an NG tube in place which is clamped. Integumentary: There is a cholecystotomy drain tube in place, draining to an accordion drain. He also has a PICC line in place to the right upper arm. That site is without edema, erythema, or drainage. Neurologic: He is awake, alert, and nonverbal at this time. He does occasionally respond to requests. DIAGNOSTIC STUDIES: Today his white count is 18.61, hemoglobin 8.8, platelet count 441,000. ABGs on 5 L nasal cannula showed a pH of 7.42 pCO2 of 38, PO2 of 106, HCO3 of 25.1. Creatinine is 1.1, estimated GFR is greater than 60. Total bilirubin is 0.76, AST 25, ALT 19, alkaline phosphatase 88. Previously his sputum grew methicillin-resistant Staphylococcus aureus, and his blood culture grew Morganella morganii. Chest x-ray today shows worsening of atelectasis or pneumonia to the left lower lobe with mild pulmonary edema. ASSESSMENT AND PLAN: Mr. Benoit is being treated for pneumonia and bacteremia. Today there is some worsening on the chest x-ray, with atelectasis vs. pneumonia. We have ordered another sputum specimen as well as procalcitonin. We have discontinued Rocephin and put him on meropenem 2 g IV every 8 hours to go along with the Zyvox which we will continue. There is a leukocytosis, which in part is due to the steroid administration. These plans have been discussed with and recommended by Dr. Benoit. COMORBIDITIES: For Mr. Benoit include he is elderly, with diabetes mellitus, sarcoidosis, and congestive heart failure. Dictated by ALPHONSE Martinez for Chaov Benoit MD cc: Chavo Benoit MD [facility]ERC[facility]
--- NOTE | 2019-02-05 18:11 | CONSULTATION ---
DATE OF CONSULTATION: 02/05/2019 REASON FOR CONSULT: Altered mental status. HISTORY OF PRESENT ILLNESS: This is a 68-year-old black male who was admitted on 01/17/2019 and has been here for several days. History is from attentive and chart review. Apparently, he was admitted with confusion and fever of 103 at home. He was hypotensive. The patient was diagnosed with sepsis and treatment was begun. He has continued treatment for bacteremia as well as now MRSA pneumonia. On 01/28/2019, he had sudden desaturation and CPR was begun as the nurse could not feel the pulse. He was intubated. He was able to be extubated 3 days later. He has not really had any improvement in the encephalopathy during his course here. He has mostly been sleeping but able to wake up a little, does not talk a whole lot. He has been in quite a bit of pain and has received some medications for that. There has been agitation. There has not been witnessed seizure activity. He does not have a prior history of stroke or seizure or other major neurologic event. In the chart, it is noted that he has sarcoidosis, although his reports workup for that long time ago and with vague recall of the specifics. She does not believe he is on any medication for this. PAST MEDICAL HISTORY: 1. Heart failure. 2. Coronary disease. 3. Pacemaker. 4. ICD. 5. Diabetes type 2. 6. Hypertension. 7. Sarcoidosis. 8. Anemia. 9. Osteoarthritis. 10. Right knee arthroscopy. 11. Mediastinoscopy for sarcoid biopsy noted in the chart. FAMILY HISTORY: No strokes or seizures. Positive hypertension. SOCIAL HISTORY: No alcohol or tobacco. He was smoking marijuana about 1 year ago. He is . ALLERGIES: No known drug allergies listed. CURRENT MEDICATIONS: Reviewed in the chart. Of note 1. Haldol 5 mg IM q.6 hours p.r.n. with last dose early this morning. 2. Solu-Medrol. 3. Morphine 2 mg IV q.4 p.r.n., last dose at 2:20 today 4. Seroquel 50 mg at bedtime. REVIEW OF SYSTEMS: Unobtainable due to patient's mental status. PHYSICAL EXAMINATION: Vital Signs: He has been hypothermic. Blood pressure 151/90. Pulse 70s to 80s. Respirations 22, 98% with face mask. Neurologic: Mr. Benoit is supine in bed with eyes closed. When I stand on his right side and call his name, he opens his eyes and appears to look in my direction. This is reproducible. He does not follow commands. He does not speak. He does actively resist passive eye opening. Pupils appear to be equal and sluggishly reactive bilaterally to bright light. Corneal reflexes present bilaterally. Gaze is conjugate. There is horizontal eye movement with passive head turning. No consistent blink to threat. Face appears symmetric. He responds to mild noxious stimuli in all extremities. I did see some minimal amounts of spontaneous movement in all extremities as well, grading about 2/5. Reflexes are diminished throughout, symmetric. There is reduced rotation about the ankles bilaterally. Plantar response is silent. DIAGNOSTICS: Head CT 01/28/2019: No acute findings. There is at least mild generalized atrophy. There is mention of an old right parietal infarct. There is mention of a tiny chronic appearing lacunar infarct in the caudate on the right on prior CT. LABORATORY DATA: Reviewed in the chart. White count of 18. Sodium 128 yesterday, today 136. BUN has been trending up, today is 78. Creatinine coming down, today 1.1. Blood sugars have been elevated, upper 100s to mid 300s. Calcium normal. AST, ALT normal. I do not see a toxicology. ASSESSMENT AND PLAN: Global encephalopathy without definite focal features, most likely multifactorial. Negative prior head CT is reassuring. He cannot have MRI due to pacemaker defibrillator. I am going to order a routine EEG. We may need to repeat the head CT. I would minimize sedating medications as able. Continue treating his medical conditions. Thank you for the consultation. cc: Rubia Sanchez MD
--- NOTE | 2019-02-05 18:53 | PROGRESS NOTE ---
DATE: 02/05/2019 SUBJECTIVE: The patient is more awake today. He is able to move his extremities. No acute events noted overnight. OBJECTIVE: Vital Signs: Temperature 97.5 degrees, blood pressure 151/90, heart rate 79, respirations 20, O2 saturation is 98% on a face mask. Intake 3.2 L, output 2.9 L. General: This is a chronically ill-appearing, elderly male, lying in bed in no acute distress. Heart: S1, S2 normal. Regular rate and rhythm. Lungs: Coarse breath sounds bilaterally. Abdomen: Positive bowel sounds. Soft, nontender, nondistended. Extremities: Edema 1+ bilaterally. Neurologic: The patient is awake, but confused. He is able to move all 4 extremities. LABORATORY AND DIAGNOSTIC DATA: White blood cell count 18, hemoglobin 8.8, hematocrit 28, platelets 441,000. Sodium 136, potassium 5.6, chloride 102, CO2 of 22, BUN 78, creatinine 1.1, glucose 181, albumin 2.8. Chest x-ray shows worsening pneumonia in the left lower lobe. Mild pulmonary edema. ASSESSMENT AND PLAN: 1. Acute hypoxemic respiratory failure. Multifactorial. 2. Pneumonia secondary to methicillin-resistant Staphylococcus aureus. The patient is on linezolid. Continue with bronchodilator therapy and supplemental oxygen. Infectious Disease is following. 3. Bacteremia secondary to Morganella. Continue with antibiotic therapy as directed by Dr. Benoit. 4. Global encephalopathy. The patient has been seen by the neurologist. We will continue to treat the underlying infection and metabolic issues. 5. Hyperkalemia. The potassium has been treated. We will repeat the potassium level this evening. May be secondary to the clinimix. 6. Septic shock. Resolved. 7. Acute cholecystitis status post cholecystostomy. Continue with conservative management. General Surgery is following. 8. Status post cardiac arrest. Continue with supportive care. 9. Acute kidney injury. Improved. 10. Ischemic cardiomyopathy with an ejection fraction of 20%. Aware. 11. Chronic systolic congestive heart failure. Aware. 12. Anemia. Improved. We will continue to monitor closely. 13. Deep vein thrombosis prophylaxis. Continue on Lovenox. Disposition: Palliative care is following. cc: Shira Jimenez MD [facility]
--- NOTE | 2019-02-05 20:04 | PULMONOLOGY PROGRESS NOTE ---
DATE: 02/05/2019 SUBJECTIVE: The patient is awake. He will follow commands intermittently. He has a weak cough effort. OBJECTIVE: The patient has been afebrile for the last 24 hours. Blood pressure 155/85, heart rate 80, respiratory rate 16, oxygen saturation 95% on 28% humidified FIO2. HEENT: Pupils are equal. Oropharynx is clear, with occasional dried secretions noted. Neck is supple. Chest reveals occasional rhonchi bilaterally. Cardiac exam: S1, S2. Abdomen is soft. Extremities reveal generalized edema. DIAGNOSTIC DATA: Chest x-ray reveals pulmonary edema, bibasilar infiltrates without improvement, and probable worsening at the left base. LABORATORY DATA: Arterial blood gas reveals a pH of 7.42, pCO2 of 38, pO2 of 106. White blood count 18.6, hemoglobin 8.8, platelet count 441,000. Sodium 136, potassium 5.6, chloride 102, bicarbonate 22, BUN 78, creatinine 1.1. IMPRESSION: 1. A 68-year-old with ongoing encephalopathy. 2. Methicillin-resistant Staphylococcus aureus pneumonia. 3. Nonischemic cardiomyopathy. 4. Adrenal insufficiency. 5. Acute cholecystitis, status post cholecystostomy drain placement. PLAN: 1. Continue current nutrition. 2. Continue current antibiotics. 3. Continue oxygen and BiPAP as necessary. 4. Recommend ongoing end-of-life discussions. His overall prognosis is poor. 5. Kayexalate for hyperkalemia. This may be in part due to his peripheral nutrition. cc: Marcelo Duque MD
[2019-02-05] MEDS: SEROQUEL NG SCH (20:48)
[2019-02-05] MEDS: LOVENOX SUBQ SCH (21:45)
[2019-02-05] MEDS ORDERED: LOKELMA POWDER PACKET PO ONE (23:00)
[2019-02-06] MEDS: CLINIMIX E 4.25%-5% SOLUTION 1,000 ML IV SCH ×3 (00:26→23:18)
[2019-02-06] MEDS: HUMALOG SUBQ SCH ×5 (02:12→20:19)
[2019-02-06] MEDS: DUONEB (A & A) INH SCH ×4 (03:35→21:18)
[2019-02-06] MEDS: MERREM 2 GM in NS 100 ML IV SCH ×3 (04:35→20:19)
[2019-02-06 04:39] LABS: ALLEN TEST YES; BE 0.7 mmoll (-3.0-3.0); BLOOD TYPE ARTERIAL; HCO3-(ACT) 25.5 mmoll (20.0-26.0); PCO2(98.6) 40 mmHg (35-45); PO2(98.6) 98 mmHg (60-100); SAMPLE BLOOD; pH(98.6) 7.41 (7.35-7.45)
[2019-02-06 04:40] LABS: MODALITY COOL AEROSOL
[2019-02-06 06:16] LABS: HEMATOCRIT 29.4 % (42.0-52.0); HEMOGLOBIN 9.3 g/dL (14.0-18.0); MCH 28.8 PG (27-31); MCHC 31.6 g/dL (33-37); RBC 3.23 XMIL (4.7-6.1); RDW 16.7 % (11.5-14.5); WBC 16.35 X1000 (4.8-10.8)
[2019-02-06] MEDS: PRILOSEC ORAL SUSPENSION PO SCH (06:31)
[2019-02-06] MEDS: SOLU-MEDROL IV SCH ×3 (06:31→22:06)
[2019-02-06 06:50] LABS: ESTIMATED GFR > 60
[2019-02-06 06:57] LABS: AGAP 11; ALB/GLOB RATIO 0.8; ALKALINE PHOSPHATASE 92 U/L (32-122); BUN 77 mg/dL (8-22); CALCIUM 10.1 mg/dL (8.8-10.2); CHLORIDE 105 mmol/L (98-107); COSMO 306; CREATININE 0.9 mg/dL (0.7-1.2); GLUCOSE 167 mg/dL (70-104); GOT 23 U/L (10-34); GPT 18 U/L (10-44); POTASSIUM 4.9 mmol/L (3.5-5.1); SODIUM 140 mmol/L (136-145); TCO2 24 mmol/L (25-35); TOTAL BILIRUBIN 0.83 mg/dL (0.20-1.00); TOTAL PROTEIN 6.6 g/dL (6.3-8.3)
--- NOTE | 2019-02-06 07:26 | Diag Imaging Result Doc PS360 ---
EXAM: CHEST-PORTABLE INDICATION: respiratory failure TECHNIQUE: One view COMPARISON: 02/05/2019 FINDINGS: The NG tube is in stable position. The right PICC line is stable. Left lower lobe opacity is unchanged. Mild interstitial thickening is approximately stable. Cardiac silhouette is stable. IMPRESSION: Essentially stable chest. Electronically signed by Andrew Trcay 02/06/2019 7:24 AM
[2019-02-06] MEDS: COREG NG SCH ×2 (08:38→20:20)
[2019-02-06] MEDS: CORDARONE PO SCH (08:38)
[2019-02-06] MEDS: COLCRYS NG SCH ×2 (08:38→20:20)
[2019-02-06] MEDS: DULCOLAX PR SCH ×2 (08:38→20:20)
[2019-02-06] MEDS: ZYVOX 600 MG/D5W 600 MG/300 ML IVPB IV SCH ×2 (08:39→19:19)
[2019-02-06] MEDS: MIRALAX PO SCH (08:39)
[2019-02-06] MEDS: LANTUS INSULIN SUBQ SCH (08:41)
--- NOTE | 2019-02-06 11:01 | INFECTIOUS DISEASE PROGRESS NO ---
DATE: 02/06/2019 PRESENT ILLNESS: The patient had a Morganella bacteremia. This has been treated and the bacteremia has cleared. The patient is being treated for a methicillin- resistant Staphylococcus aureus pneumonia. Yesterday, the patient's x-ray was worse and I am concerned that the patient, in addition to having methicillin-resistant Staphylococcus aureus pneumonia, another bacterium is also causing a pneumonia. MEDICATIONS: The patient is receiving Zyvox for his methicillin-resistant Staphylococcus aureus pneumonia. Yesterday, the patient was switched to meropenem in case a superimposed organism is causing a new pneumonia. Specifically, meropenem was started yesterday. PHYSICAL EXAMINATION: Vital Signs: The temperature is 99 degrees, pulse 74, respirations 14, blood pressure 156/84. General: This is a chronically ill-appearing, elderly male. He is in no acute distress. Head, Eyes, Ears, Nose, and Throat: No drainage noted from the nose or ears. Neck: The patient did not seem to have any pain when I passively moved his neck. Lungs: Clear to auscultation. Cardiovascular: Heart rate is regular. Abdomen: Soft and nontender. There is a cholecystostomy tube in place. The tube site is not purulent or bleeding. Extremities: The patient has a PICC in the right arm. That site also is not purulent or bleeding. Neurologic: The patient is not alert today and he did not respond to verbal stimuli. LAB AND X-RAY: The patient's CBC shows a white count of 16,350, hemoglobin 9.3, platelet count 412,000. Blood gases show a pH of 7.41, a PO2 of 98, and a pCO2 of 40. Creatinine is 0.9. GFR is greater than 60. Liver function studies are negative. Blood and sputum cultures are pending. Chest x-ray shows a left lower lobe opacity and the presence of a right PICC. Also, already, a procalcitonin level is pending. ASSESSMENT AND PLAN: The patient has pneumonia. I will continue Zyvox and meropenem. COMORBIDITIES: The patient is elderly. He also is a diabetic, and he has sarcoidosis and congestive heart failure. cc: MD KELSEY Nieves
--- NOTE | 2019-02-06 11:40 | PROGRESS NOTE ---
DATE: 02/06/2019 LOCATION: ICU bed 9. Dr. Sanchez saw Mr. Benoit for Neurology evaluation yesterday. He was admitted with fever, confusion, sepsis. He deteriorated, and required intubation [address] showed old right parietal encephalomalacia. Lab shows mildly elevated blood sugars, and BUN 70s to 80s. Other chemistry is unremarkable regarding explanation for encephalopathy. EEG is planned for today. I do not have any new thoughts or new suggestions today. Nothing to add to Dr. Sanchez's recommendations. She had suggested consider repeat CT electively, depending on his clinical course and EEG findings. cc: Hieu Stout III, MD MTDD
[2019-02-06] MEDS ORDERED: LASIX IV ONE (18:34)
--- NOTE | 2019-02-06 19:55 | PROGRESS NOTE ---
DATE: 02/06/2019 SUBJECTIVE: The patient is resting in bed. He remains somewhat confused. OBJECTIVE: Vital signs: Temperature 98.7 degrees, blood pressure 160/93, heart rate 78, respirations 19, O2 saturation 92% on 5 L nasal cannula. Intake 3.4 L. Output 2.3 L. General: This is a chronically ill-appearing elderly male lying in bed in no acute distress. Head: Normocephalic, atraumatic. Heart: S1, S2 normal. Regular rate and rhythm. Lungs: Coarse breath sounds bilaterally. Abdomen: Positive bowel sounds. Soft, nontender, nondistended. There is a cholecystostomy tube present. Extremities: Trace edema bilaterally. Neurological: The patient is awake. He is able to move all 4 extremities. LABORATORY DATA: Sodium 140, potassium 4.9, chloride 105, CO2 24, BUN 77, creatinine 0.9, glucose 167. White blood cell count 16, hemoglobin 9.3, hematocrit 29, platelets 412. ASSESSMENT AND PLAN: 1. Acute hypoxemic respiratory failure. Multifactorial. Continue with the current treatment regimen. 2. Pneumonia secondary to methicillin-resistant Staphylococcus aureus. Continue on the antibiotic therapy as directed by Dr. Benoit. 3. Bacteremia secondary to Morganella. Continue with antibiotic therapy. 4. Global encephalopathy. Continue to monitor for improvement. 5. Septic shock. Resolved. 6. Acute cholecystitis status post cholecystostomy. Continue with conservative management. General Surgery is following. 7. Status post cardiac arrest. Continue with supportive care. 8. Severe protein calorie malnutrition. The patient remains on Clinimix. 9. Anemia. Stable. 10. Azotemia. Slowly improving. 11. Chronic systolic congestive heart failure. Aware. 12. Deep vein thrombosis prophylaxis. Continue on Lovenox. 13. Disposition: Palliative care has been meeting with the patient's family. The patient is currently a full code. cc: Shira Jimenez MD MTDD
[2019-02-06] MEDS: SEROQUEL NG SCH (20:20)
[2019-02-06] MEDS ORDERED: LOVENOX SUBQ SCH (21:00)
--- NOTE | 2019-02-06 23:43 | PULMONOLOGY PROGRESS NOTE ---
DATE: 02/06/2019 SUBJECTIVE: The patient is arousable with stimulation. He is slow to answer questions. He has a very weak cough effort and is requiring periodic NT suctioning. OBJECTIVE: The patient has been afebrile for the last 24 hours. BP 161/90, heart rate 84, respiratory rate 20, oxygen saturation 100% on 28% FIO2. HEENT: Pupils are equal and reactive. Oropharynx is clear, without lesions. Cardiac exam: S1, S2. Abdomen is soft, with positive bowel sounds. Extremities reveal 1+ peripheral edema. DIAGNOSTIC DATA: Chest x-ray reveals cardiomegaly with atelectasis versus pneumonia at the left lung base. Sodium 140, potassium 4.9, chloride 105, bicarbonate 24, BUN 77, creatinine 0.9, glucose 167. White blood count 16.35, hemoglobin 9.3, platelet count 412,000. IMPRESSION: A 68-year-old with: 1. Ongoing encephalopathy. 2. Methicillin-resistant Staphylococcus aureus pneumonia. 3. Nonischemic cardiomyopathy. 4. Acute cholecystitis, status post cholecystostomy drain placement. 5. Adrenal insufficiency. 6. Diabetes mellitus. 7. Failure to thrive. DISCUSSION: A 68-year-old with problems outlined above. This is day #18 and he continues to have fluctuating encephalopathy, likely due to his multiple comorbidities. His overall prognosis appears to be poor. End-of-life discussions have been entertained with family. If he requires intubation, they wish to proceed with this intervention, realizing that he will likely require a tracheostomy and possible PEG tube placement. PLAN: 1. Continue BiPAP at bedtime and p.r.n. 2. Continue to suction p.r.n. 3. Continue current nutrition. 4. Antibiotics per Infectious Disease. 5. Overall prognosis appears poor, given his failure to improve. cc: Marcelo Duque MD
[2019-02-07] MEDS: HUMALOG SUBQ SCH ×4 (02:15→19:48)
[2019-02-07] MEDS: DUONEB (A & A) INH SCH ×4 (03:43→21:13)
[2019-02-07 04:35] LABS: ALLEN TEST YES; BE 5.1 mmoll (-3.0-3.0); BLOOD TYPE ARTERIAL; HCO3-(ACT) 28.9 mmoll (20.0-26.0); METHB 1.1 % (0.0-1.5); O2(CT) 13.3 mL/dL (15.0-23.0); O2HB 94.7 % (95.0-99.0); PO2(98.6) 80 mmHg (60-100); SAMPLE BLOOD; SAO2 97.6 % (95.0-100.0); THB 9.9 g/dL (11.5-17.4); pH(98.6) 7.39 (7.35-7.45)
[2019-02-07 04:37] LABS: PCO2(98.6) 51 mmHg (35-45)
[2019-02-07 04:46] LABS: MODALITY COOL AEROSOL
[2019-02-07] MEDS: MERREM 2 GM in NS 100 ML IV SCH ×3 (04:59→20:45)
[2019-02-07 05:45] LABS: HEMOGLOBIN 9.2 g/dL (14.0-18.0); MCH 27.8 PG (27-31); MCHC 30.7 g/dL (33-37); MCV 90.6 FL (81-99); MPV 10.2 FL (7.4-10.4); RBC 3.31 XMIL (4.7-6.1); RDW 16.6 % (11.5-14.5); WBC 13.63 X1000 (4.8-10.8)
[2019-02-07] MEDS: PRILOSEC ORAL SUSPENSION PO SCH (06:06)
[2019-02-07] MEDS: SOLU-MEDROL IV SCH ×3 (06:06→22:33)
[2019-02-07 06:22] LABS: ESTIMATED GFR > 60
[2019-02-07 06:27] LABS: AGAP 10; ALB/GLOB RATIO 0.8; ALBUMIN 2.8 g/dL (3.5-5.0); ALKALINE PHOSPHATASE 87 U/L (32-122); BUN 72 mg/dL (8-22); CHLORIDE 103 mmol/L (98-107); COSMO 306; CREATININE 0.9 mg/dL (0.7-1.2); GLUCOSE 187 mg/dL (70-104); GOT 24 U/L (10-34); GPT 20 U/L (10-44); POTASSIUM 4.9 mmol/L (3.5-5.1); SODIUM 140 mmol/L (136-145); TCO2 27 mmol/L (25-35); TOTAL BILIRUBIN 0.87 mg/dL (0.20-1.00); TOTAL PROTEIN 6.1 g/dL (6.3-8.3)
--- NOTE | 2019-02-07 06:40 | Diag Imaging Result Doc PS360 ---
CHEST-PORTABLE - 02/07/2019 INDICATION: respiratory failure COMPARISON: 02/06/2019 FINDINGS: Stable pacemaker. Stable right PICC line. Stable nasogastric tube. Stable cardiomegaly and pulmonary vascular congestion. Stable moderately large consolidation/effusion in the left lower lobe. Stable hazy interstitial pulmonary edema. IMPRESSION: No change from prior. Electronically signed by Sid Carlson 02/07/2019 6:38 AM
[2019-02-07] MEDS ORDERED: MIRALAX PO PRN (07:21)
[2019-02-07] MEDS ORDERED: DULCOLAX PR PRN (07:21)
[2019-02-07] MEDS: COREG NG SCH ×2 (08:10→20:05)
[2019-02-07] MEDS: COLCRYS NG SCH ×2 (08:10→20:05)
[2019-02-07] MEDS: ZYVOX 600 MG/D5W 600 MG/300 ML IVPB IV SCH ×2 (08:10→19:47)
[2019-02-07] MEDS: CORDARONE PO SCH (08:10)
[2019-02-07] MEDS: LANTUS INSULIN SUBQ SCH (08:11)
[2019-02-07] MEDS: CLINIMIX E 4.25%-5% SOLUTION 1,000 ML IV SCH (10:33)
--- NOTE | 2019-02-07 12:23 | INFECTIOUS DISEASE PROGRESS NO ---
DATE: 02/07/2019 PRESENT ILLNESS: The patient has a methicillin-resistant Staph aureus pneumonia. He may also have another organism causing his pneumonia as well. MEDICATIONS: The patient is on a combination of Zyvox and meropenem. This is day 9 of treatment with Zyvox and day 2 of treatment with meropenem. PHYSICAL EXAMINATION: Vital Signs: Temperature is 98 degrees, pulse 76, respirations 14, blood pressure is 99/61. General: This is a chronically ill-appearing elderly male. He is in no acute distress. Head, eyes, ears, nose, and throat: No drainage noted from the nose or ears. I could not get a look into his mouth. Neck: The patient's neck was not stiff. Lungs: Clear to auscultation. Cardiovascular: Heart rate is regular. Abdomen: Soft and nontender. The patient has a cholecystostomy tube in place. Extremities: Patient has a PICC in the right arm and the site is not purulent or draining. Neurologic: The patient is obtunded. He did not respond to verbal stimuli. There is no tremor. LAB AND X-RAY: Chest x-ray shows left lower lobe consolidation and pulmonary edema. A procalcitonin is 0.29, which means that pneumonia is likely. Liver function studies are normal. Creatinine is 0.9 GFR is greater than 60. The patient's blood gases show a pH of 7.39, a PO2 of 80, and a pCO2 of 51. [place] [address], hemoglobin 9.2, and platelet count 360,000. ASSESSMENT AND PLAN: Patient has pneumonia caused by methicillin-resistant Staph aureus and possibly another organism. My plan is to continue Zyvox and meropenem. COMORBIDITIES: The patient is elderly, diabetic, and he has sarcoidosis and congestive heart failure. cc: Chavo Benoit MD
[2019-02-07] MEDS ORDERED: LOVENOX 1 MG/KG SUBQ SCH (16:15)
--- NOTE | 2019-02-07 17:06 | PROGRESS NOTE ---
DATE: 02/07/2019 SUBJECTIVE: The patient's mental status remains unchanged. He is still confused. His right arm is swollen. OBJECTIVE: Vital Signs: Temperature 96.1 degrees, blood pressure 136/84, heart rate 66, respirations 14, O2 saturation is 100% on 5 L nasal cannula. Intake 3.2 L. Output 4.5 L. General: This is a chronically ill-appearing, elderly male lying in bed, in no acute distress. Heart: S1, S2 normal. Regular rate and rhythm. Lungs: Coarse breath sounds bilaterally. Abdomen: Positive bowel sounds. Soft, nontender, nondistended. Extremities: No edema. The patient has ulcerations on both legs. Neurologic: The patient is awake, but confused. He is able to move his extremities. LABS: White blood cell count 13, hemoglobin 9.2, hematocrit 30, platelets 360,000. Sodium 140, potassium 4.9, chloride 103, CO2 27, BUN 72, creatinine 0.9, glucose 187, calcium 10. DIAGNOSTIC DATA: Chest x-ray shows stable cardiomegaly and pulmonary vascular congestion. Moderate large consolidation in the left lower lobe, as well as interstitial pulmonary edema ASSESSMENT AND PLAN: 1. Acute hypoxemic respiratory failure. Multifactorial. Continue to treat the underlying pneumonia and volume overload. 2. Bacteremia secondary to Morganella. So far, the repeat blood cultures are negative. Continue with antibiotic therapy as directed by Dr. Benoit. 3. Right axillary deep vein thrombosis. We will start the patient on full-dose Lovenox. 4. Global encephalopathy. Unchanged. 5. Pneumonia secondary to methicillin-resistant Staphylococcus aureus. Continue with antibiotic therapy and aspiration precautions. 6. Septic shock. Resolved. 7. Acute cholecystitis status post cholecystostomy tube placement. Continue with conservative management. 8. Status post cardiac arrest. Continue with supportive care. 9. Severe protein calorie malnutrition. We will start the patient on tube feeds and monitor closely. 10. Anemia. Stable. 11. Leukocytosis. Improved. 12. Chronic systolic congestive heart failure. Aware. 13. Disposition. I had a discussion with the patient's , Kenya Benoit, and after going over the patient's poor prognosis, she has decided to make the patient a DNR level 1. The code status has been changed in the system. We also discussed feeding tube placement and she stated that she really would like to avoid that if at all possible. We will continue to monitor the patient closely. Palliative care is following. cc: Shira Jimenez MD MTDD
[2019-02-07] MEDS ORDERED: LASIX IV ONE (18:43)
[2019-02-07] MEDS: LOVENOX SUBQ SCH (18:55)
[2019-02-07] MEDS: SEROQUEL NG SCH (20:05)
--- NOTE | 2019-02-07 20:43 | PULMONOLOGY PROGRESS NOTE ---
DATE: 02/07/2019 SUBJECTIVE: The patient is arousable. He will have a 1 word response to questioning. He is not particularly interactive with the examiner. OBJECTIVE: Vital Signs: The patient has been afebrile for the last 24 hours. Blood pressure 138/86, heart rate 62, respiratory rate 11, oxygen saturation 100% on 28% humidified FIO2. HEENT: Pupils are equal. Oropharynx appears clear. Neck: Supple. Chest: Reveals occasional rhonchi bilaterally. Cardiac: S1, S2. Abdomen: Soft. Extremities: Reveal 1+ peripheral edema. LABORATORIES: Chest x-ray reveals cardiomegaly with mild vascular congestion and consolidation at the left lower lobe. Microbiology is growing a gram-negative magaly, results still pending. White blood count 13.6, hemoglobin 9.2, platelet count 360,000. Sodium 139, potassium 5.1, chloride 80. Arterial blood gas reveals a pH of 7.39, pCO2 of 51, pO2 of 80. IMPRESSION: A 68-year-old with: 1. Ongoing encephalopathy. 2. Status post treatment for Staphylococcus aureus pneumonia. 3. Gram-negative pneumonia. 4. Nonischemic cardiomyopathy. 5. Acute cholecystitis, status post cholecystostomy, drain placement. 6. Adrenal insufficiency. 7. Diabetes. PLAN: 1. Continue to cycle BiPAP every night at bedtime and p.r.n. 2. Continue humidified oxygen therapy. 3. As needed suctioning of the trachea. 4. Continue current nutrition. 5. Antibiotics per Infectious Disease. 6. End-of-life discussions have been held with the family. His code status has been appropriately addressed. cc: Marcelo Duque MD
[2019-02-08] MEDS: HUMALOG SUBQ SCH ×4 (01:29→21:29)
[2019-02-08] MEDS: MORPHINE IV PRN ×2 (02:44→14:15)
[2019-02-08] MEDS: DUONEB (A & A) INH SCH ×4 (03:15→21:05)
[2019-02-08] MEDS: MERREM 2 GM in NS 100 ML IV SCH ×3 (04:15→20:43)
[2019-02-08 04:39] LABS: ALLEN TEST YES; BE 7.9 mmoll (-3.0-3.0); BLOOD TYPE ARTERIAL; HCO3-(ACT) 31.1 mmoll (20.0-26.0); METHB 1.1 % (0.0-1.5); O2(CT) 14.7 mL/dL (15.0-23.0); O2HB 96.8 % (95.0-99.0); PCO2(98.6) 34 mmHg (35-45); PO2(98.6) 138 mmHg (60-100); SAMPLE BLOOD; SAO2 99.1 % (95.0-100.0); THB 10.6 g/dL (11.5-17.4)
[2019-02-08 04:40] LABS: MODALITY COOL AEROSOL; pH(98.6) 7.56 (7.35-7.45)
[2019-02-08 06:10] LABS: HEMATOCRIT 30.7 % (42.0-52.0); HEMOGLOBIN 9.7 g/dL (14.0-18.0); MCH 28.6 PG (27-31); MCHC 31.6 g/dL (33-37); MCV 90.6 FL (81-99); MPV 10.6 FL (7.4-10.4); RBC 3.39 XMIL (4.7-6.1); RDW 16.5 % (11.5-14.5); WBC 11.97 X1000 (4.8-10.8)
[2019-02-08] MEDS: PRILOSEC ORAL SUSPENSION PO SCH (06:17)
[2019-02-08] MEDS: LOVENOX SUBQ SCH ×2 (06:17→18:27)
[2019-02-08] MEDS: SOLU-MEDROL IV SCH ×3 (06:17→22:42)
[2019-02-08 06:18] LABS: ESTIMATED GFR > 60; MAGNESIUM 2.4 mg/dL (1.5-2.7); PREALBUMIN 18.1 mg/dL (20-40)
[2019-02-08 06:23] LABS: AGAP 12; ALB/GLOB RATIO 0.9; ALBUMIN 2.8 g/dL (3.5-5.0); ALKALINE PHOSPHATASE 96 U/L (32-122); BUN 72 mg/dL (8-22); CALCIUM 9.9 mg/dL (8.8-10.2); CHLORIDE 101 mmol/L (98-107); COSMO 302; GLUCOSE 157 mg/dL (70-104); GOT 27 U/L (10-34); GPT 20 U/L (10-44); POTASSIUM 5.1 mmol/L (3.5-5.1); SODIUM 139 mmol/L (136-145); TCO2 26 mmol/L (25-35); TOTAL BILIRUBIN 0.95 mg/dL (0.20-1.00); TOTAL PROTEIN 5.9 g/dL (6.3-8.3)
--- NOTE | 2019-02-08 07:07 | Diag Imaging Result Doc PS360 ---
EXAM: CHEST-PORTABLE 02/08/2019 HISTORY: respiratory failure TECHNIQUE: AP portable at 0522 COMMENT: There is cardiomegaly. There is an NG tube which passes below the diaphragm. There is a PICC line on the right with its tip in the right atrium. Compared to 02/07/2019 the inspiration is better. There continues to be opacification in the retrocardiac portion of the left lower lobe. IMPRESSION: Cardiomegaly. Left lower lobe atelectasis versus pneumonia. Electronically signed by Wil Kraus 02/08/2019 7:05 AM
[2019-02-08] MEDS: ZOFRAN IV PRN ×2 (07:55→14:15)
--- NOTE | 2019-02-08 08:06 | Diag Imaging Result Doc PS360 ---
EXAM: CHEST-PORTABLE 02/08/2019 HISTORY: check for aspiration TECHNIQUE: AP portable at 0758 COMMENT: There is cardiomegaly. The inspiration is more optimal than on 02/08/2019. There is less opacification in the left lower lobe behind the heart. The NG tube has been removed. A right PICC line remains. IMPRESSION: Improved atelectasis versus pneumonia left lower lobe. Electronically signed by Wil Kraus 02/08/2019 8:03 AM
--- NOTE | 2019-02-08 08:22 | EEG REPORT ---
DATE: 02/05/2019 REFERRING PHYSICIAN: Rubia Sanchez MD [employer] TESTER: Jarrod Chaparro. BACKGROUND INFORMATION/TECHNIQUE: This is a digitally recorded portable routine EEG with video. HISTORY: A 68-year-old male patient with prolonged encephalopathy, sepsis. EEG is ordered to detect evidence of seizures. Medications include Seroquel. EEG FINDINGS: A posterior dominant alpha rhythm is not seen. The background consists of theta delta slowing without admixed faster frequencies. No definite persistent focal slowing. No epileptiform discharges. No seizures. Hyperventilation was not performed. Photic stimulation does not alter the record. No definite drowsiness patterns. Stage II sleep is not seen. The EKG demonstrates regular intervals. IMPRESSION AND CLINICAL CORRELATION: Abnormal routine EEG due to moderate generalized slowing indicative of a moderate nonspecific encephalopathy. No epileptiform discharges or seizures seen on the current study. This does not rule out an underlying seizure disorder. Clinical correlation is recommended. cc: Rubia Sanchez MD
[2019-02-08] MEDS: LANTUS INSULIN SUBQ SCH (09:44)
[2019-02-08] MEDS: ZYVOX 600 MG/D5W 600 MG/300 ML IVPB IV SCH ×2 (09:44→20:25)
[2019-02-08] MEDS: CORDARONE PO SCH (09:45)
[2019-02-08] MEDS: COREG NG SCH ×2 (09:45→20:27)
[2019-02-08] MEDS: COLCRYS NG SCH ×2 (09:45→20:25)
--- NOTE | 2019-02-08 10:05 | INFECTIOUS DISEASE PROGRESS NO ---
DATE: 02/08/2019 HISTORY OF PRESENT ILLNESS: The patient has a methicillin-resistant Staph aureus pneumonia and there may well be another organism causing his pneumonia as well. MEDICATIONS: This is day #10 of Zyvox and day #3 of meropenem. PHYSICAL EXAMINATION: Vital Signs: Temperature is 95.7 degrees, pulse 69, respirations 14, blood pressure 112/76. General: This is an ill-appearing elderly male. He is in no acute distress and in fact, today he is awake and talking. HEENT: He appears to be able to hear my spoken words and see near objects. I did not notice any white coating on his tongue. Neck: There was no pain with movement of his neck. Lungs: Clear to auscultation. Cardiovascular: Regular heart rate. Thorax: The patient has a pacemaker in the left upper part of the chest. The site is not swollen or draining. Abdomen: Soft and nontender. The patient has a cholecystostomy tube in place. Extremities: The patient has a PICC in the right arm. That site is not swollen or tender. Neurologic: As mentioned above, he is awake and he is talking. There is no tremor. LAB AND X-RAY: Chest x-ray shows left lower lobe pneumonia. Procalcitonin is 0.29, which translates into the patient likely having pneumonia. Liver function studies are normal. The blood gases show a pH of 7.56, PO2 of 138, and a pCO2 of 34. Creatinine is 1. GFR is greater than 60. CBC shows a white count of 11,970, hemoglobin 9.7, platelet count 265,000. ASSESSMENT AND PLAN: The patient has pneumonia caused by methicillin-resistant Staph aureus and possibly another organism. I plan to continue Zyvox and meropenem. COMORBIDITIES: The patient is elderly, diabetic, and he has sarcoidosis and congestive heart failure. cc: Chavo Benoit MD
--- NOTE | 2019-02-08 10:14 | Diag Imaging Result Doc PS360 ---
EXAM: CHEST/ABD TUBE PLACEMENT 02/08/2019 HISTORY: verify NGT placement TECHNIQUE: AP portable upright at 1005 COMMENT: There is an NG tube with its tip in the stomach. Compared to the previous study of this date at 0758 there is some clearing of the retrocardiac left lower lobe. There remains some platelike opacity over the right base and ill-defined opacity in the left lower lobe. IMPRESSION: Subsegmental atelectasis in the right lower lobe. Atelectasis versus pneumonia in the left lower lobe. Electronically signed by Wil Kraus 02/08/2019 10:11 AM
--- NOTE | 2019-02-08 14:30 | Extremity Venous Study ---
PROCEDURE NAME: Venous U/S Right Arm - 02/07/2019 PROCEDURE: Right upper extremity venous study. DATE OF STUDY: 02/07/2019. REQUESTING PHYSICIAN: Dr. Jimenez. CASSANDRA ARCHITECT: Jennifer. INDICATIONS: 1. Edema. 2. History of PICC line. EQUIPMENT: [employer] E 9 ultrasound system with a 9 L-D transducer. FINDINGS: Images of the right upper extremity venous system with comparison shot to the left subclavian vein were obtained in both sagittal and transverse planes. Doppler was used to evaluate veins for spontaneity, phasicity, respiratory excursion, and digital augmentation. RESULTS: Limited study secondary to patient's being uncooperative and restrained, but there appears to be acute DVT in the distal axillary vein around the PICC line, but is not completely occluding. Again, this was somewhat of a limited study, so we were unable to see all aspects of the PICC line. INTERPRETATION: Acute non occluding deep vein thrombosis in the right axillary vein. Again, this is a limited study secondary to patient compliance. cc: MD Shira Montoya MD
--- NOTE | 2019-02-08 16:03 | PROGRESS NOTE ---
DATE: 02/08/2019 SUBJECTIVE: The patient is resting comfortably. He remains confused. OBJECTIVE: Vital signs: Temperature 98.6 degrees, blood pressure 96/48, heart rate 51, respirations 10, O2 saturations 100% on aerosol mask, input 3 L, output 3.6 L. General: This is a chronically ill-appearing elderly male lying in bed in no acute distress. Heart: S1, S2 normal, bradycardic. Lungs: Coarse breath sounds bilaterally. Abdomen: Positive bowel sounds, soft, nontender, nondistended. Extremities: No edema, no cyanosis. Neuro: The patient is awake but remains confused. LAB: White blood cell count 11, hemoglobin 9.4, hematocrit 30, platelets 265,000, sodium 139, potassium 5.1, chloride 101, CO2 26, BUN 72, creatinine 1, glucose 157 . Chest x-ray shows improved pneumonia in the left lower lobe. ASSESSMENT AND PLAN: 1. Acute hypoxemic respiratory failure. Multifactorial. Continue on supplemental oxygen. Continue to treat the underlying issues. 2. Bacteremia secondary to Morganella. Repeat blood cultures remain negative. Continue with antibiotic therapy as directed by Dr. Benoit. 3. Pneumonia secondary to methicillin-resistant Staphylococcus aureus. Continue on the current antibiotic regimen. 4. Right axillary vein deep vein thrombosis. Continue on full-dose Lovenox. 5. Global encephalopathy. Unchanged. 6. Septic shock. Resolved. 7. Acute cholecystitis status post cholecystostomy tube placement, stable. 8. Status post cardiac arrest. Continue with supportive care. 9. Anemia. Stable. 10. Protein calorie malnutrition. Continue with tube feeds. 11. Chronic systolic congestive heart failure. Aware. 12. Disposition. The patient is stable for transfer to [facility]. The patient is currently a do not resuscitate level 1 after discussion with the patient's yesterday. Will continue to monitor the patient on tube feeds. The patient will likely need a swallow evaluation once he is more awake and alert and able to follow instructions. Palliative care is following. cc: Shira Jimenez MD MTDD
[2019-02-08] MEDS: SEROQUEL NG SCH (20:26)
[2019-02-08] MEDS ORDERED: D50W SYRINGE IV ONE (21:19)
[2019-02-09] MEDS ORDERED: D50W SYRINGE IV ONE (00:50)
[2019-02-09] MEDS: HUMALOG SUBQ SCH ×4 (02:07→20:11)
[2019-02-09] MEDS ORDERED: D5W 1,000 ML IV SCH (02:30)
[2019-02-09] MEDS: DUONEB (A & A) INH SCH ×4 (03:00→21:15)
[2019-02-09 04:32] LABS: ALLEN TEST YES; BLOOD TYPE ARTERIAL; HCO3-(ACT) 31.2 mmoll (20.0-26.0); METHB 0.5 % (0.0-1.5); O2(CT) 12.1 mL/dL (15.0-23.0); O2HB 96.3 % (95.0-99.0); PCO2(98.6) 46 mmHg (35-45); PO2(98.6) 100 mmHg (60-100); SAMPLE BLOOD; THB 8.8 g/dL (11.5-17.4); pH(98.6) 7.46 (7.35-7.45)
[2019-02-09 04:33] LABS: MODALITY COOL AEROSOL
[2019-02-09] MEDS: MORPHINE IV PRN ×2 (05:49→10:47)
[2019-02-09] MEDS: LOVENOX SUBQ SCH ×2 (05:50→17:44)
[2019-02-09] MEDS: MERREM 2 GM in NS 100 ML IV SCH (05:50)
[2019-02-09] MEDS: PRILOSEC ORAL SUSPENSION PO SCH ×2 (05:50→06:16)
[2019-02-09] MEDS: SOLU-MEDROL IV SCH ×5 (05:50→23:21)
[2019-02-09 06:32] LABS: HEMOGLOBIN 8.3 g/dL (14.0-18.0); MCH 27.9 PG (27-31); MCHC 30.7 g/dL (33-37); MCV 90.9 FL (81-99); MPV 10.9 FL (7.4-10.4); RBC 2.97 XMIL (4.7-6.1); RDW 15.8 % (11.5-14.5); WBC 14.24 X1000 (4.8-10.8)
--- NOTE | 2019-02-09 06:33 | Diag Imaging Result Doc PS360 ---
EXAM: CHEST-PORTABLE HISTORY: respiratory failure TECHNIQUE: Chest single view COMPARISON: 02/08/2019 FINDINGS: The lungs are well expanded. The heart remains enlarged. No pulmonary edema. Atelectasis or a small infiltrate in the left base. No pleural effusions identified. No change in the right-sided PICC line. Nasogastric tube in good position. There is a left-sided pacemaker. IMPRESSION: Atelectasis versus a small infiltrate in the left lung base. Electronically signed by Jeanmarie Mcbride 02/09/2019 6:31 AM
[2019-02-09 06:55] LABS: AGAP 8; ALB/GLOB RATIO 0.9; ALBUMIN 2.4 g/dL (3.5-5.0); ALKALINE PHOSPHATASE 84 U/L (32-122); BUN 55 mg/dL (8-22); CALCIUM 9.1 mg/dL (8.8-10.2); CHLORIDE 100 mmol/L (98-107); COSMO 300; CREATININE 0.8 mg/dL (0.7-1.2); ESTIMATED GFR > 60; GLUCOSE 338 mg/dL (70-104); GOT 27 U/L (10-34); GPT 19 U/L (10-44); POTASSIUM 4.6 mmol/L (3.5-5.1); SODIUM 136 mmol/L (136-145); TCO2 28 mmol/L (25-35); TOTAL BILIRUBIN 0.99 mg/dL (0.20-1.00)
[2019-02-09] MEDS: COLCRYS NG SCH (08:32)
[2019-02-09] MEDS: ZYVOX 600 MG/D5W 600 MG/300 ML IVPB IV SCH ×2 (08:32→20:12)
[2019-02-09] MEDS: LANTUS INSULIN SUBQ SCH (08:33)
--- NOTE | 2019-02-09 10:48 | PROGRESS NOTE ---
DATE: 02/09/2019 INTERVAL HISTORY: His blood sugars were low overnight and he was started on D5 water. I went ahead and discontinued his insulin. We will keep checking his blood sugars and keep him on sliding scale insulin. SUBJECTIVE: Patient's tells me that he was more interactive yesterday evening, and he was able to identify his family members. No other new events. VITALS: Temperature is 97.4 degrees, pulse 58, respiratory rate 12, blood pressure 128/67, saturating 100% on Ventimask. PHYSICAL EXAMINATION: General: Not in acute distress. He responds to verbal stimuli by moving his head, but does not engage in clinical encounter meaningfully. HEENT: He does have subconjunctival hemorrhage. Pupils are otherwise equal reacting. He has nasogastric tube and urine catheter. He also has a right arm PICC line. Lungs: Air entry bilaterally equal. No wheeze, rhonchi, crackles. Cardiovascular: S1, S2 normal. Regular. No murmur, rub, or gallop. He has an AICD pacemaker on the left chest. Abdomen: Soft, nontender. Extremities: No lower extremity edema, except mild. He also has bilateral upper extremity edema, more pronounced on the right. LABS: Suggestive of mild leukocytosis, normocytic anemia, normal platelet count. ABG is rather unremarkable. Currently acceptable range of electrolytes. His blood sugar had dropped to as low as 55, which is now increasing. MICROBIOLOGY: No positive data. His Clostridium difficile analysis was negative. IMAGING: He had acute non occluding DVT of the right axillary vein. ASSESSMENT AND PLAN: 1. Acute metabolic encephalopathy with a protracted course, likely toxic metabolic in the setting of hospital-acquired delirium and septic shock. CT scan of head had chronic appearing lacunar infarct of right caudate without any acute pathology. Electroencephalogram had generalized slowing. Continue him on quetiapine and as-needed haloperidol. Follow up with electrocardiogram tomorrow for QTc monitoring. Continue to redirect, reorient and reassure. 2. Septic shock due to Morganella from cholecystitis, as well as right lower lobe methicillin- resistant Staphylococcus aureus and Stenotrophomonas pneumonia leading to acute hypoxic respiratory failure. His antibiotics were changed to meropenem, which I will change to levofloxacin for his Stenotrophomonas pneumonia, and continue him on linezolid. I will appreciate further Infectious Disease recommendations. His chest x-ray appears to be clearing up, and he is status post right upper quadrant cholecystotomy drain since 01/24/2019. He is off norepinephrine since February 02, and his midodrine has been tapered off. 3. Relative adrenal insufficiency. Continue intravenous methylprednisolone at current dose. He may soon to be tapered down to oral hydrocortisone as per Pulmonology recommendations. 4. Episodes of hyperglycemia and hypoglycemia in the setting of intravenous steroid use and use of insulin simultaneously. I am holding his long-acting insulin, stopping D5 water and continue fingersticks with sliding scale insulin. 5. History of chronic systolic congestive heart failure with ejection fraction of 30%, status post automatic implantable cardioverter defibrillator. Continue home amiodarone and carvedilol with close monitoring of blood pressure. 6. Others. He is status post cardiac arrest in 01/28/2019 requiring intubation and 3 to 4 minutes of resuscitation. He was extubated on January 31. I will continue pantoprazole for stress ulcer prophylaxis. 7. Right upper extremity axillary vein deep vein thrombosis associated with PICC line. Continue enoxaparin. The PICC line is functional. 8. Nutrition. Continue intravenous Clinimix. His nasogastric tube has been held considering recurrent aspiration events. I brought about idea of percutaneous endoscopic gastrostomy tube with the patient's , and she wanted me to have another speech evaluation, which we would request. His mental status is better and he may do ok with liquids. However, I would wait for Speech eval. DISPOSITION: Continue to monitor patient and PVCs. His code status is DNR level 1. Plan of care discussed with the at bedside. Her questions have been answered. cc: MD KELSEY Frey
[2019-02-09] MEDS: LEVAQUIN 750 MG/D5W 750 MG/150 ML IVPB IV SCH (10:53)
[2019-02-09] MEDS: CORDARONE PO SCH (11:31)
[2019-02-09] MEDS: COREG NG SCH ×2 (11:31→20:12)
[2019-02-09] MEDS: SEROQUEL NG SCH (20:12)
[2019-02-09] MEDS: HALDOL IM PRN (21:51)
[2019-02-10] MEDS: TYLENOL PO PRN (00:49)
[2019-02-10] MEDS: MORPHINE IV PRN ×3 (00:49→23:11)
[2019-02-10] MEDS: HUMALOG SUBQ SCH ×3 (01:52→15:35)
[2019-02-10] MEDS: DUONEB (A & A) INH SCH ×4 (03:40→21:20)
[2019-02-10 04:24] LABS: ALLEN TEST YES; BE 7.4 mmoll (-3.0-3.0); BLOOD TYPE ARTERIAL; HCO3-(ACT) 30.7 mmoll (20.0-26.0); METHB 0.8 % (0.0-1.5); O2HB 97.1 % (95.0-99.0); PCO2(98.6) 39 mmHg (35-45); PO2(98.6) 132 mmHg (60-100); SAMPLE BLOOD; SAO2 99.5 % (95.0-100.0); THB 7.1 g/dL (11.5-17.4); pH(98.6) 7.51 (7.35-7.45)
[2019-02-10 04:25] LABS: MODALITY COOL AEROSOL
[2019-02-10] MEDS: PRILOSEC ORAL SUSPENSION PO SCH ×2 (05:46→06:06)
[2019-02-10] MEDS: SOLU-MEDROL IV SCH ×4 (05:46→23:00)
[2019-02-10] MEDS: LOVENOX SUBQ SCH ×2 (05:47→18:32)
[2019-02-10 06:49] LABS: ESTIMATED GFR > 60
[2019-02-10 06:53] LABS: AGAP 8; ALBUMIN 2.6 g/dL (3.5-5.0); ALKALINE PHOSPHATASE 81 U/L (32-122); BUN 56 mg/dL (8-22); CALCIUM 9.7 mg/dL (8.8-10.2); CHLORIDE 103 mmol/L (98-107); COSMO 304; CREATININE 0.9 mg/dL (0.7-1.2); GLUCOSE 260 mg/dL (70-104); GOT 26 U/L (10-34); GPT 18 U/L (10-44); POTASSIUM 5.1 mmol/L (3.5-5.1); SODIUM 140 mmol/L (136-145); TCO2 29 mmol/L (25-35); TOTAL BILIRUBIN 1.29 mg/dL (0.20-1.00); TOTAL PROTEIN 5.1 g/dL (6.3-8.3)
--- NOTE | 2019-02-10 07:15 | EKG Report ---
Test Performed on : 02/10/2019 06:23:57 AM Test Reason : Follow up QTc Blood Pressure : / mmHG Vent. Rate : 067 BPM Atrial Rate : 067 BPM P-R Int : 220 ms QRS Dur : 160 ms QT Int : 460 ms P-R-T Axes : 071 220 042 degrees QTc Int : 486 ms Sinus rhythm. with sinus arrhythmia. with 1st degree AV block. with occasional premature ventricular complexes. Nonspecific intraventricular block Possible Lateral infarct , age undetermined Abnormal ECG When compared with ECG of 05-FEB-2019 07:08, Sinus rhythm. has replaced Electronic ventricular pacemaker Confirmed by Abhilash Guzman MD ([id number]) on 02/10/2019 10:52:19 AM
[2019-02-10] MEDS: ZYVOX 600 MG/D5W 600 MG/300 ML IVPB IV SCH ×2 (07:46→20:35)
[2019-02-10] MEDS: COLCRYS NG SCH (09:28)
[2019-02-10] MEDS: LEVAQUIN 750 MG/D5W 750 MG/150 ML IVPB IV SCH (09:28)
[2019-02-10] MEDS: CORDARONE PO SCH (09:29)
[2019-02-10] MEDS: COREG NG SCH ×2 (09:29→20:36)
[2019-02-10] MEDS: CLINIMIX E 4.25%-5% SOLUTION 1,000 ML IV SCH (11:53)
--- NOTE | 2019-02-10 12:36 | PROGRESS NOTE ---
DATE: 02/10/2019 SUBJECTIVE: Apparently, as per nursing staff, the patient is a little bit more awake. He does mumble some unintelligible words to me today. OBJECTIVE: Vital Signs: Temperature 97.4, heart rate 73, respiratory rate 18, blood pressure 103/57, O2 saturation 100% on Ventimask at 5 L per minute. General Examination: This is a chronically ill-looking, 68-year-old, -Ni[place] male lying in bed, in no acute distress at the time of my examination. HEENT: The patient has conjunctival hemorrhage. In the mouth, he has tongue and mouth lesions, some of them hemorrhagic. Neck: No JVD noted. No carotid bruits. Cardiovascular Examination: S1 and S2 heard. No murmurs, gallops, or rubs. Regular rate and rhythm. Respiratory Examination: Clear bilaterally to auscultation. No work of breathing. No using accessory muscles. Abdomen: Soft. The patient had NG tube feeding. The patient has a right arm PICC line. No organomegaly noted. Extremities: No clubbing, cyanosis. Mild edema noted in both lower extremities. Bilateral upper extremity edema, more pronounced on the right. Neurological Examination: The patient is a little bit more alert. Laboratory Data: There is no CBC from today. BMP was normal today except glucose 260. ASSESSMENT AND PLAN: 1. Acute metabolic encephalopathy with a protracted course. We suspected initially hospital- acquired delirium, septic shock. CT showed chronic-appearing lacunar infarct. At this point, the patient is a little bit more awake, according to the family. We will continue with Seroquel and haloperidol as needed. 2. Septic shock secondary to Morganella and Stenotrophomonas pneumonia. Dr. Benoit from infectious disease is following this patient. Currently, on Zyvox and levofloxacin. We will continue with the same management. 3. Adrenal insufficiency. We will continue with intravenous methylprednisone. Pulmonary is also following this patient. We will follow recommendations. 4. Recurrent aspiration pneumonia/protein calorie malnutrition. We will consult gastroenterology to see if a percutaneous endoscopic gastrostomy tube is adequate for this patient. 5. Right upper extremity axillary pain, deep venous thrombosis. We will continue with Lovenox. The peripherally inserted central catheter line is functional. 6. Chronic congestive systolic heart failure with ejection fraction of 20%, status post automatic implantable cardioverter defibrillator. We will continue with amiodarone and carvedilol. 7. Disposition. We will continue to monitor this patient closely. cc: Rocky Scales MD
[2019-02-10] MEDS: HALDOL IM PRN (14:28)
[2019-02-10 15:40] LABS: HEMATOCRIT 18.9 % (42.0-52.0); MCH 27.8 PG (27-31); MCHC 30.2 g/dL (33-37); MCV 92.2 FL (81-99); RDW 15.6 % (11.5-14.5)
[2019-02-10 15:41] LABS: RBC 2.05 XMIL (4.7-6.1); WBC 10.69 X1000 (4.8-10.8)
[2019-02-10 15:44] LABS: HEMOGLOBIN 5.7 g/dL (14.0-18.0)
--- NOTE | 2019-02-10 16:19 | GASTROENTEROLOGY CONSULTATION ---
DATE: 02/10/2019 REASON FOR CONSULTATION: Possible PEG tube placement. HISTORY OF PRESENT ILLNESS: This is a 68-year-old male who has had a prolonged hospital course. Records from his hospitalization were reviewed. He was admitted on 01/17/2019. Apparently he was found to have altered mental status. He had been on some antibiotics for a right lower extremity wound. During his hospital course he has had findings of acute cholecystitis but is not able to go through surgery so he had a cholecystotomy drain placed on 01/24/2019 by radiology. Also during his hospital course he had respiratory arrest and was on the ventilator for a period of time. He has since been extubated and is now in the pulmonary vascular cardiac unit. Apparently during his hospital course he had NG tube feedings that he was unable to tolerate. He is currently receiving IV Clinimix for IV nutrition. He still has his NG tube in place that is clamped and used for medications. Patient has been followed by infectious disease for Morganella bacteremia most likely related from cholecystitis. We are asked to see the patient for the possibility of a PEG tube placement. At the time of my evaluation his was at the bedside. At the time of my evaluation patient was awake and alert, apparently his mental status has improved over the last several days per 's report, he was awake and oriented to person and place. He followed commands. PAST MEDICAL HISTORY: Ischemic cardiomyopathy with ejection fraction of 30%, systolic heart failure, history of pacemaker and ICD placement, diabetes type 2, hypertension, sarcoidosis, history of arthritis and history of anemia. PREVIOUS SURGICAL HISTORY: Mediastinoscopy for sarcoid biopsy, pacemaker, ICD placement, right knee arthroscopy, he has had cholecystotomy drain placed to the gallbladder on 01/24/2019 during this hospitalization. ALLERGIES: No known drug allergies. HOME MEDICATIONS: Cordarone 200 mg daily, aspirin 1 tablet daily, Atorvastatin 40 mg daily, carvedilol 6.25 twice a day, Keflex 1 twice a day, vitamin D 3 daily, glipizide 5 mg twice a day, nitroglycerin as directed, potassium 0.5 tablets daily, Entresto 1 twice daily, furosemide 20 mg twice daily. SOCIAL HISTORY: He is . Occasional alcohol use. No reported tobacco or illicit drug use. REVIEW OF SYSTEMS: Per history of present illness. I have reviewed his records from this hospitalization.Vital Signs: Temperature 97.4 degrees, pulse 73, respirations 13, blood pressure 103/57. General: Patient is awake, he is alert at present time. He is oriented to person and time. He follows commands. HEENT: Right conjunctival hemorrhage noted. Oral mouth lesions and some redness and erythema at the posterior pharynx. Cardiovascular: Regular rate and rhythm. He has history of pacemaker and ICD placement. Respiratory: Lung sounds essentially clear. Abdomen: Soft. He does have an NG tube that is clamped. He has a biliary drain to the right quadrant in place. Extremities: Mild lower extremity edema noted. LABORATORY: Hematology. WBC 14.24, hemoglobin 8.3, hematocrit 27.0, MCV 90.9. Chemistry. Sodium 140, potassium 5.1, chloride 103, CO2 29, BUN 56, creatinine 0.9, glucose 260, calcium 9.7, total bilirubin 1.29, AST 26, ALT 18, alkaline phosphatase 81. ASSESSMENT AND PLAN: 1. Acute metabolic encephalopathy. Patient had CT scan that showed a chronic lacunar infarct. 2. Sepsis related to Morganella and Stenotrophomonas pneumonia following with Dr. Benoit. 3. Adrenal insufficiency. Continue on medications. 4. History of aspiration pneumonia. 5. Protein-calorie malnutrition. Patient is receiving Clinimix. 6. History of congestive heart failure. History of pacemaker and implantable cardioverter defibrillator placement. PLAN: Continue current management before proceeding with PEG tube. We will repeat his swallow evaluation. I have discussed the PEG tube procedure with the and she wishes to proceed if necessary. Again further plans will be made as needed. I have discussed this case with Dr. Madrigal. Thank you for this consultation. Dictated by ALPHONSE Bates for Kofi Madrigal MD cc: ALPHONSE Alvarez MD [facility]
[2019-02-10] MEDS ORDERED: NS 500 ML IV SCH (18:45)
[2019-02-10] MEDS: SEROQUEL NG SCH (20:35)
[2019-02-10] MEDS: HUMULIN R IV SCH (21:44)
[2019-02-11] MEDS: CLINIMIX E 4.25%-5% SOLUTION 1,000 ML IV SCH ×2 (01:26→15:06)
[2019-02-11] MEDS: HUMULIN R IV SCH ×4 (03:28→23:01)
[2019-02-11] MEDS: DUONEB (A & A) INH SCH ×4 (03:41→23:10)
[2019-02-11] MEDS: SOLU-MEDROL IV SCH ×4 (05:39→23:03)
[2019-02-11] MEDS: LOVENOX SUBQ SCH ×2 (05:39→17:01)
[2019-02-11] MEDS: PRILOSEC ORAL SUSPENSION PO SCH (06:01)
--- NOTE | 2019-02-11 06:11 | Diag Imaging Result Doc PS360 ---
EXAM: CHEST-PORTABLE HISTORY: Respiratory failure TECHNIQUE: Chest single view COMPARISON: 02/09/2019 FINDINGS: No change in the right-sided PICC line, the nasogastric tube, or left-sided pacemaker. Heart is mildly prominent. No pulmonary edema. There is basilar atelectasis. There may be a small left pleural effusion. IMPRESSION: No definite interval change Electronically signed by Jeanmarie Mcbride 02/11/2019 6:09 AM
[2019-02-11] MEDS: MORPHINE IV PRN ×3 (06:37→22:00)
[2019-02-11 06:41] LABS: HEMATOCRIT 22.6 % (42.0-52.0); HEMOGLOBIN 6.9 g/dL (14.0-18.0); MCH 26.5 PG (27-31); MCHC 30.5 g/dL (33-37); MCV 86.9 FL (81-99); MPV 10.9 FL (7.4-10.4); RBC 2.6 XMIL (4.7-6.1); RDW 20.1 % (11.5-14.5); WBC 10.29 X1000 (4.8-10.8)
[2019-02-11] MEDS ORDERED: NS 500 ML IV ONE (08:14)
[2019-02-11] MEDS: COREG NG SCH ×2 (08:46→20:14)
[2019-02-11] MEDS: COLCRYS NG SCH (08:46)
[2019-02-11] MEDS: ZYVOX 600 MG/D5W 600 MG/300 ML IVPB IV SCH ×2 (08:46→19:57)
[2019-02-11] MEDS: CORDARONE PO SCH (08:46)
[2019-02-11] MEDS: LEVAQUIN 750 MG/D5W 750 MG/150 ML IVPB IV SCH (08:46)
[2019-02-11 09:09] LABS: ESTIMATED GFR > 60
--- NOTE | 2019-02-11 09:24 | INFECTIOUS DISEASE PROGRESS NO ---
DATE: 02/11/2019 PRESENT ILLNESS: The patient has a methicillin-resistant Staph aureus pneumonia, which is clearing up. Unfortunately, it appears that he may have developed a Stenotrophomonas maltophilia pneumonia. Most likely, the patient's pneumonias were caused by aspiration. MEDICATIONS: This is the 13th day of treatment with Zyvox, and the second day of treatment with Levaquin. The patient also is receiving steroids. PHYSICAL EXAMINATION: Vital Signs: Temperature is 97.5 degrees, pulse 61, respirations 17, blood pressure 141/70. General: This is an ill-appearing, elderly male. He is in no acute distress. HEENT: He can hear my spoken words and see near objects. He does not have any white patches in his mouth. Neck: He does not seem to have any pain when he moves his neck. Lungs: There were bilateral rhonchi. Cardiovascular: Heart rate is regular. Thorax: The patient has a pacemaker in the left upper chest. The site is not swollen or draining. Abdomen: Soft and nontender. The patient has a cholecystostomy drain in place in the right upper part of the abdomen. The site of the drain is not purulent or bleeding. Neurologic: The patient is awake. He was able to move his extremities today. There is no tremor. Extremities: The patient has a PICC in the right arm. The site is not swollen or purulent. IMAGING AND LABORATORY DATA: The patient's CBC shows a white count of 10,290, hemoglobin 6.9, and platelet count 69,000. Chest x-ray shows basilar atelectasis. Sputum culture earlier grew methicillin-resistant Staph aureus, and most recently, sputum culture is growing Stenotrophomonas maltophilia. ASSESSMENT AND PLAN: I think it is possible that the patient does have pneumonia, even though it was not seen on x-ray. I am going to treat the patient for 1 more day with Zyvox to complete a 14- day treatment course. I am going to continue with Levaquin intravenously to treat the Stenotrophomonas maltophilia. I am going to order a procalcitonin level and a noncontrasted CT scan of the chest to determine if the patient has a pneumonia or just Stenotrophomonas carriage in his throat or trachea. COMORBIDITIES: The patient is elderly, diabetic. He has sarcoidosis, as well as congestive heart failure. cc: Chavo Benoit MD [facility]
[2019-02-11 10:06] LABS: AGAP 8; ALB/GLOB RATIO 1.2; ALBUMIN 2.7 g/dL (3.5-5.0); ALKALINE PHOSPHATASE 71 U/L (32-122); BUN 63 mg/dL (8-22); CALCIUM 9.5 mg/dL (8.8-10.2); CHLORIDE 105 mmol/L (98-107); COSMO 305; GLUCOSE 230 mg/dL (70-104); GOT 25 U/L (10-34); GPT 18 U/L (10-44); POTASSIUM 5.1 mmol/L (3.5-5.1); SODIUM 140 mmol/L (136-145); TCO2 27 mmol/L (25-35); TOTAL BILIRUBIN 1.23 mg/dL (0.20-1.00); TOTAL PROTEIN 4.9 g/dL (6.3-8.3)
--- NOTE | 2019-02-11 10:12 | PROGRESS NOTE ---
DATE: 02/11/2019 SUBJECTIVE: Family is at bedside, reports that the patient has been a little restless but definitely more awake. He mumbles some unintelligible words to me today. OBJECTIVE: Vital Signs: Temperature 97.5 degrees, heart rate 61, respiratory rate 17, blood pressure 141/70, O2 saturation 100% on Venturi mask. General Examination: This is a chronically ill-appearing and frail, 68-year-old, -[place]ish male, lying in bed, in no acute distress. HEENT: The patient has conjunctival hemorrhage. In the mouth, he has tongue and mouth lesions, some of them hemorrhagic. Neck: No JVD noted. No carotid bruits. No lymphadenopathy. No thyromegaly. Cardiovascular Examination: S1 and S2 heard. No murmurs, gallops, or rubs. Regular rate and rhythm. Respiratory Examination: Clear bilaterally to auscultation. No work of breathing or using accessory muscles. Abdomen: Soft. The patient had NG tube feeding. The patient has a right arm PICC line. No organomegaly noted. Extremities: No clubbing or cyanosis. Mild edema in both lower extremities. Bilateral upper extremity edema more pronounced on the right. Neurological Examination: The patient is a little bit more alert. Moves 4 extremities. Laboratory Data: White cell count 10.29, hemoglobin 6.9, hematocrit 22.6. BMP is pending. ASSESSMENT AND PLAN: 1. Acute metabolic encephalopathy with protracted course. Patient is here in the hospital for 23 days. We suspected initially hospital-acquired delirium and septic shock. CT of the head showed chronic appearing lacunar infarct. The patient is a little more awake today. The patient is on Seroquel and haloperidol as needed for agitation. 2. Septic shock secondary to Morganella and Stenotrophomonas maltophilia pneumonia. Dr. Benoit from infectious disease is following this patient. He is going to be on 14 days of Zyvox today and levofloxacin. The patient is going to have a CT of the chest to see if the pneumonia is still present or not. We will continue following recommendations from Dr. Benoit. 3. Adrenal insufficiency. We will continue with intravenous methylprednisolone. Pulmonary following this patient for recommendations. 4. Recurrent aspiration pneumonia/protein calorie malnutrition. We have consulted gastroenterology and they plan to repeat the swallow study before proceeding with percutaneous endoscopic gastrostomy tube placement. We will continue to monitor. 5. Right upper extremity deep venous thrombosis. We will continue with Lovenox. Peripherally inserted central catheter line is functional. 6. Chronic congestive heart failure with ejection fraction of 20%, status post automatic implantable cardioverter-defibrillator. We will continue with carvedilol and amiodarone. 7. Acute anemia. There are no overt signs of gastrointestinal bleeding. His hemoglobin has been checked. Yesterday, it was 5.6. He received 2 units of blood. Hemoglobin is still low of 6.9 so we are going to provide 2 more units of blood. Gastroenterology is on board. We will see what they have to say. 8. Disposition. We will continue to monitor the patient in the [facility]. cc: Rocky Scales MD
--- NOTE | 2019-02-11 10:23 | Diag Imaging Result Doc PS360 ---
EXAM: CT THORAX W/O CONTRAST 02/11/2019 HISTORY: pneumonia TECHNIQUE: This exam was performed using automated exposure control, adjustment of mA or kV according to patient size, and/or use of iterative reconstruction technique. COMMENT: The current examination is compared with the previous study of 01/18/2019. There is an NG tube which passes below the diaphragm into the stomach. There is a minimal amount of pleural fluid on the right. There is generalized subcutaneous edema. There are calcifications in the thoracic aorta. The density of the blood pool is somewhat diminished at less than 17 Hounsfield units which may be indicative of anemia. There is no evidence of significant adenopathy. There is consolidation with air bronchograms in the left lower lobe posteriorly and some atelectasis or pneumonia is also present in the posterior costophrenic sulcus of the right lower lobe. There is less apparent groundglass opacity in the right apex than on the previous study. Radiopacities in the lower lobes however are worse. IMPRESSION: Left lower lobe pneumonia and right lower lobe atelectasis versus pneumonia. Anemia. Electronically signed by Wil Kraus 02/11/2019 10:21 AM
[2019-02-11] MEDS: SYSTANE EYE DROPS RIGHT EYE SCH ×3 (11:06→23:02)
--- NOTE | 2019-02-11 17:39 | GASTROENTEROLOGY PROGRESS NOTE ---
DATE: 02/11/2019 SUBJECTIVE: Patient was awake but not as alert as he was when I saw him yesterday. I have spoken with the and we are waiting on repeat swallow evaluation before decision is made on PEG tube placement. OBJECTIVE: Vital Signs: Temperature 97.9 degrees, pulse 65, respirations 18, blood pressure 134/76 . LABORATORY: Hematology: hemoglobin 6.9, hematocrit 22.6. Chemistry, sodium 140, potassium 5.1, chloride 105, CO2 27, BUN 63, creatinine 1.0, glucose 230, total bilirubin 1.23, AST 25, ALT 18, alkaline phosphatase 71. ASSESSMENT AND PLAN: 1. Metabolic encephalopathy. 2. Sepsis secondary to Morganella and Stenotrophomonas pneumonia, Dr. Benoit is following, patient is receiving antibiotics. 3. Protein calorie malnutrition, patient apparently did not tolerate his feedings previously so they are on hold and he is receiving Clinimix. Request has been made for possible PEG tube placement. Since patient is more alert we will repeat his swallow evaluation before deciding on PEG tube placement waiting on that test to be done today and further plans be made as needed. I have discussed this case with Dr. Madrigal. Dictated by ALPHONSE Bates for Kofi Madrigal MD cc: ALPHONSE Alvarez MD [facility]
[2019-02-11] MEDS: SEROQUEL NG SCH (20:14)
[2019-02-12] MEDS: HUMULIN R IV SCH ×3 (02:44→15:32)
[2019-02-12] MEDS: SYSTANE EYE DROPS RIGHT EYE SCH ×4 (02:46→21:27)
[2019-02-12] MEDS: DUONEB (A & A) INH SCH ×3 (03:56→16:28)
[2019-02-12] MEDS: CLINIMIX E 4.25%-5% SOLUTION 1,000 ML IV SCH ×2 (04:30→18:09)
[2019-02-12] MEDS: MORPHINE IV PRN (05:13)
[2019-02-12] MEDS: SOLU-MEDROL IV SCH ×2 (05:41→06:29)
[2019-02-12] MEDS: LOVENOX SUBQ SCH (05:42)
[2019-02-12 05:57] LABS: HEMATOCRIT 18.1 % (42.0-52.0); HEMOGLOBIN 5.6 g/dL (14.0-18.0); MCH 26.7 PG (27-31); MCHC 30.9 g/dL (33-37); MCV 86.2 FL (81-99); PLT 43 X1000 (130-400); RDW 18.4 % (11.5-14.5); WBC 13.87 X1000 (4.8-10.8)
[2019-02-12] MEDS: PRILOSEC ORAL SUSPENSION PO SCH (06:29)
[2019-02-12] MEDS: CORDARONE PO SCH (08:01)
[2019-02-12] MEDS: COREG NG SCH ×2 (08:01→21:25)
[2019-02-12] MEDS: LEVAQUIN 750 MG/D5W 750 MG/150 ML IVPB IV SCH (08:01)
[2019-02-12] MEDS: COLCRYS NG SCH (08:01)
[2019-02-12] MEDS ORDERED: PROTONIX IV ONE (08:03)
[2019-02-12] MEDS ORDERED: SODIUM CHLORIDE 0.9% INJ ONE (08:03)
--- NOTE | 2019-02-12 08:14 | INFECTIOUS DISEASE PROGRESS NO ---
DATE: 02/12/2019 PRESENT ILLNESS: The patient has Stenotrophomonas maltophilia pneumonia which most likely occurred because the patient aspirates medications. This is day 4 of Levaquin and day 15 of Zyvox. The patient previously had methicillin-resistant Staph aureus pneumonia, but I think that has cleared. MEDICATIONS: The patient also is receiving steroids. PHYSICAL EXAMINATION: Vital Signs: Temperature is 97.9 degrees, pulse 67, respirations 10, blood pressure 104/61. General: This is an ill-appearing elderly male. He is in no acute distress. Head/eyes/ears/nose/throat: It is uncertain to me how well he hears what I am saying and how well his vision is. At times he does do things that I request him to do such as moving his extremities, but at other times he does not. Patient has a nasogastric tube in place. Lungs: Clear bilaterally. Cardiovascular: Heart rate is regular. Thorax: The patient has a pacemaker in the left upper chest. There is no swelling or drainage at the site. Abdomen: Soft and nontender. The patient has a cholecystostomy tube in place. Neurologic: The patient is awake. It is difficult for me to understand what he is saying. Extremities: The patient has a PICC in the right arm. The site is not tender or draining. LAB AND X-RAY: Chest x-ray shows bibasilar pneumonia. Latest sputum culture grew Stenotrophomonas[place] [address], hemoglobin 5.6, and platelet count 43,000. The patient's last creatinine was 1 and GFR greater than 60. ASSESSMENT AND PLAN: I think the patient does have pneumonia due to Stenotrophomonas. I plan to continue Levaquin. I have discontinued Zyvox because patient has had 15 days of treatment for the Staph pneumonia with Zyvox and also because the patient's hemoglobin and platelet count are dropping. The patient does have a leukocytosis. I think this could be due to the fact that the patient is getting steroids. I have ordered a procalcitonin level to help figure out whether the patient has a pneumonia or not. I ordered a chest CT scan also and that showed possible bibasilar pneumonia. For now I am going to treat the patient as if he has a Stenotrophomonas pneumonia, pending the results of the procalcitonin level. As mentioned above, I have discontinued Zyvox. COMORBIDITIES: The patient is elderly and he is a diabetic. He also has sarcoidosis and congestive heart failure. cc: Chavo Benoit MD
[2019-02-12] MEDS ORDERED: SODIUM CHLORIDE 0.9% INJ SCH (08:15)
[2019-02-12 08:16] LABS: ESTIMATED GFR > 60
[2019-02-12 08:17] LABS: AGAP 9; ALB/GLOB RATIO 1.4; ALBUMIN 2.5 g/dL (3.5-5.0); ALKALINE PHOSPHATASE 60 U/L (32-122); BUN 62 mg/dL (8-22); CALCIUM 9.7 mg/dL (8.8-10.2); CHLORIDE 104 mmol/L (98-107); COSMO 301; CREATININE 0.9 mg/dL (0.7-1.2); GLUCOSE 233 mg/dL (70-104); GOT 39 U/L (10-34); GPT 24 U/L (10-44); POTASSIUM 5.4 mmol/L (3.5-5.1); SODIUM 138 mmol/L (136-145); TCO2 25 mmol/L (25-35); TOTAL PROTEIN 4.3 g/dL (6.3-8.3)
--- NOTE | 2019-02-12 09:57 | PROGRESS NOTE ---
DATE: 02/12/2019 INTERVAL HISTORY: The patient had received 3 units of blood transfusion yesterday. However, his blood count further dropped today. Unfortunately, he was on enoxaparin which I have stopped. There have not been no signs of overt bleeding. I evaluated the patient at bedside. He is alert. Not oriented. His is at bedside too. VITALS: Currently, temperature of 98.9 degrees, pulse of 66, respiratory rate 18, blood pressure 100/60, he is saturating 100% on Ventimask 28%. PHYSICAL EXAMINATION: He does have a nasogastric tube. He has conjunctival injection of the right side. He has dried flecks of blood in his oral cavity and posterior pharyngeal wall. Lungs: Air entry bilaterally equal. No wheeze, rhonchi, crackles. Cardiovascular: S1, S2 normal. He has a left-sided pacemaker. Abdomen: Soft, nontender. He has bilateral lower extremity and upper extremity edema. LABS: Suggestive of mild leukocytosis, marked thrombocytopenia, anemia. He has hyperglycemia. Otherwise, essentially normal electrolytes. He is in four-point restraints at the moment. IMAGING: No new imaging. ASSESSMENT AND PLAN: 1. Acute anemia, likely related to blood loss. Differential being gastrointestinal bleed based on dried flecks of blood in the mouth versus other source. I will give him intravenous Protonix 80 mg bolus and we will start him on 40 mg intravenous every 12 hours. I will follow up follow up fecal occult blood test, CT scan of the abdomen and pelvis to rule out retroperitoneal hemorrhage. Give additional blood transfusion. Closely follow up CBC. We will appreciate gastroenterology recommendation for future need of upper endoscopy. His enoxaparin has been stopped. 2. Protracted acute encephalopathy after septic shock. Continue quetiapine and as needed haloperidol. 3. Septic shock due to Morganella from cholecystitis as well as right lower lobe methicillin- resistant Staphylococcus aureus and Stenotrophomonas pneumonia leading to hypoxic respiratory failure. Continue levofloxacin as per infectious disease recommendations. His Zyvox has been stopped. Follow up procalcitonin level. 4. Relative adrenal insufficiency. Continue intravenous methylprednisolone and I will consider changing it to hydrocortisone after pulmonology recommendations. 5. Others. He has a history of hyperglycemia related to steroid use which I will manage with sliding scale insulin; chronic systolic congestive heart failure with an ejection fraction of 30%, status post automatic implantable cardioverter defibrillator, I will continue amiodarone and carvedilol with close monitoring of blood pressure; he is status post cardiac arrest on January 28 requiring intubation between and 31 of January; he has right upper extremity axillary vein deep venous thrombosis associated with peripherally inserted central catheter line for which I am holding his enoxaparin; continue intravenous Clinimix for nutrition. 6. Disposition. I had an extensive discussion with the patient's about his critical condition and the fact that he is acquiring more and more medical problems. His encephalopathy has not resolved after his septic shock. He may need long-term percutaneous endoscopic gastrostomy tube placement. However, I also discussed with her about the risk of him pulling out the percutaneous endoscopic gastrostomy tube, considering altered mental status. I explained to her about his critical condition. All of her questions were answered. cc: Gabriel Bauman MD
--- NOTE | 2019-02-12 11:35 | Diag Imaging Result Doc PS360 ---
CT ABD/PELVIS W/IV CONT ONLY - 02/12/2019 INDICATION: Rule out retroperitoneal bleeding COMPARISON: 01/18/2019, 01/24/2019 FINDINGS: There is severe cardiomegaly. There is severe body wall edema. There is a cholecystostomy tube in good place. The gallbladder is collapsed. There is some hyperdense fluid of the left psoas muscle indicating an intramuscular hemorrhage. This measures 4.5 x 2.9 cm. There is a Venegas catheter in the urinary bladder. There is severe wall thickening of the urinary bladder. No bowel obstruction or wall thickening. There is a nasogastric tube in good position in the stomach. IMPRESSION: 1. Left psoas intramuscular hemorrhage. 2. Stable cholecystostomy tube in good position. 3. Severe urinary bladder wall thickening stable from prior. This exam was performed using automated exposure control, adjustment of mA or kV according to patient size, and/or use of iterative reconstruction technique Electronically signed by Sid Carlson 02/12/2019 11:33 AM
[2019-02-12] MEDS ORDERED: PROTONIX IV SCH (12:00)
[2019-02-12] MEDS: NS 1,000 ML ONE ×2 (12:35→17:09)
[2019-02-12] MEDS ORDERED: NS 1,000 ML IV SCH (12:45)
--- NOTE | 2019-02-12 13:09 | PROGRESS NOTE ---
DATE: 02/12/2019 ADDENDUM: I was paged by the nursing team that the patient had an episode of bleeding through his mouth, and his blood pressure had dropped to 60 systolic. I evaluated the patient at bedside. He had active bleeding inside the mouth, which was suctioned out. His blood pressure is low. I immediately ordered a stat intravenous bolus. I will stop his intravenous steroids. I had a discussion with the at bedside about his critical condition. I discussed with her that if his future wishes would be to not get started on life support medications and extra aggressive life support measures including intubation, ventilator, pressor medication for cardiac support, then I will keep him inside this unit, PVC, and keep treating his severe anemia with blood products, IV fluids and IV Protonix. She understood it. I also explained to her about intra retroperitoneal bleed that the patient is developing. cc: Gabriel Bauman MD
[2019-02-12 13:23] LABS: HEMATOCRIT 18.5 % (42.0-52.0); HEMOGLOBIN 5.7 g/dL (14.0-18.0); MCH 25.9 PG (27-31); MCHC 30.8 g/dL (33-37); MCV 84.1 FL (81-99); PLT 38 X1000 (130-400); RDW 17.2 % (11.5-14.5); WBC 12.47 X1000 (4.8-10.8)
[2019-02-12] MEDS ORDERED: LEVOPHED 8 MG in D5 1/2 NS 250 ML IV SCH (17:30)
--- NOTE | 2019-02-12 18:04 | PROGRESS NOTE ---
DATE: 02/12/2019 ADDENDUM: This is an addendum to previously dictated progress note. I was informed that Mr. Benoit was becoming hypotensive again. I again evaluated the patient at bedside. He is appearing very weak and lethargic, though he does open his eyes up to strong verbal stimuli. I had ordered 1 more intravenous fluid bolus. I had another round of goals of care discussion with the patient's and also the patient's daughter on the phone. I discussed with them about his critical condition, the fact that he is at risk of repeat intubation and cardiac arrest, considering his recurrent aspiration events, and now acute blood loss anemia. The patient's daughter states that she would want the patient to be Full Code. The patient's also agrees to that, so I will resume aggressive measures of resuscitating the patient. We will start him on intravenous norepinephrine and transfer to ICU. Plan of care discussed with the nursing team. Their questions have been answered. cc: Gabriel Bauman MD
[2019-02-12 18:35] LABS: HEMATOCRIT 19.3 % (42.0-52.0); HEMOGLOBIN 6.1 g/dL (14.0-18.0); MCH 26.6 PG (27-31); MCHC 31.6 g/dL (33-37); MCV 84.3 FL (81-99); PLT 42 X1000 (130-400); RBC 2.29 XMIL (4.7-6.1); RDW 16.3 % (11.5-14.5)
--- NOTE | 2019-02-12 18:37 | GASTROENTEROLOGY PROGRESS NOTE ---
DATE: 02/12/2019 At the time of my rounds today patient was gone down for a CT scan. His was not in the room at the time of my rounds. CT scan results were reviewed that showed a left psoas intramuscular hemorrhage with stable cholecystotomy tube and severe urinary bladder wall thickening that was stable to prior. Patient has apparently had episodes of hypotension and bleeding from his mouth. OBJECTIVE: Vital Signs: Temperature 97.7 degrees, pulse 64, respirations 16, blood pressure 81/52, as noted patient was down for CT scan at the time of my rounds. LABORATORY: Hematology. WBC 12.47, hemoglobin 5.7, hematocrit 18.5, MCV 84.1, platelet 38,000. Chemistry, sodium 138, potassium 5.4, chloride 104, CO2 25, BUN 62, creatinine 0.9, glucose 233. ASSESSMENT AND PLAN: 1. Anemia. Patient has had findings of left psoas muscle hemorrhage. Continue to monitor hemoglobin and hematocrit and transfuse packed red blood cells. 2. Sepsis and pneumonia currently on antibiotics and following with Dr. Benoit. 3. Malnutrition. Patient is currently receiving Clinimix. I believe he was unable to tolerate tube feedings previously, we had repeated his swallow study yesterday and patient was unable to swallow and is at high risk for aspiration. We had discussed plans for PEG tube placement but currently patient is not stable enough to proceed with the procedure. Continue IV nutrition for now and we will continue to follow. Further plans will be made according to his hospital course. I have discussed this case with Dr. Madrigal. Dictated by ALPHONSE Bates for Kofi Madrigal MD cc: ALPHONSE Alvarez MD [facility]
[2019-02-12] MEDS ORDERED: EPINEPHRINE SYRINGE IV ONE (19:00)
[2019-02-12] MEDS ORDERED: SODIUM BICARBONATE 8.4% IV ONE (19:00)
[2019-02-12] MEDS ORDERED: SOLU-CORTEF IV SCH (21:00)
[2019-02-12 21:13] VITALS: BP 72/43
[2019-02-12] MEDS ORDERED: HUMULIN R IV SCH (21:15)
[2019-02-12] MEDS: SEROQUEL NG SCH (21:25)
--- NOTE | 2019-02-12 22:01 | PULMONOLOGY PROGRESS NOTE ---
DATE: 02/12/2019 INTERIM HISTORY: The patient has had periods of hypotension and has been transferred back to the Intensive Care Unit as family now requests aggressive care. OBJECTIVE: Vital Signs: Blood pressure 88/58, heart rate 76, respiratory rate 19, oxygen saturation 96% on 28% FiO2 by face mask. HEENT: Pupils are equal. Oropharynx appears dry with some crusting on the tongue. Neck: Supple. Chest: Crackles in the bases. Cardiac: S1, S2. Abdomen: Soft with cholecystostomy drain in place, draining bilious material. Extremities: Cool to the touch. LABORATORIES: CT scan of the abdomen and pelvis reveals a left psoas intramuscular hemorrhage, severe body wall edema, thickening of the urinary bladder. Sodium 138, potassium 5.4, chloride 104, bicarbonate 25, BUN 62, creatinine 0.9, total protein 4.3, albumin 3.5. White blood count 16.4, hemoglobin 6.1, platelet count 42,000. IMPRESSION: A 68-year-old with: 1. Pneumonia, which appears to be mild and posterior on CT scan of the abdomen lung windows. 2. Ongoing encephalopathy. 3. Psoas muscle bleeding with anemia/blood loss anemia, as outlined above. 4. Hypoxemic respiratory failure. 5. Nonischemic cardiomyopathy. 6. Cholecystitis, status post cholecystostomy drain placement. 7. Diabetes mellitus. 8. Adrenal insufficiency. 9. Recurrent hypotension. PLAN: 1. Continue volume resuscitation for hypotension and vasopressors as necessary, to keep a mean arterial pressure greater than 60. 2. Continue broad-spectrum antibiotics per Dr. Chavo Benoit. 3. P.r.n. suctioning of the trachea. 4. Continue current nutrition support. The patient is not a candidate for p.o. intake and has had difficulty with nasogastric feeds. 5. Re-initiate stress-dosed steroids. 6. Has failure to thrive with recurrent admissions to the ICU. TIME SPENT IN CRITICAL CARE MANAGEMENT: 30+ minutes. cc: Marcelo Duque MD
--- NOTE | 2019-02-12 22:01 | PROGRESS NOTE ---
DATE: 02/12/2019 CODE NOTE: The patient became apneic and then developed a wide complex tachyarrhythmia and then went into PEA. Code was called. Blood pressure around 6:30 was 79/51. That was on norepinephrine. The patient has been here for treatment. They stated that she wanted him to be a full code, but after further discussion with the family, I felt that if he was pulseless, we would not continue any further aggressive measures. We obliged and stopped the code after several minutes. He was given epinephrine at least 2 rounds, intubated, but because of the discussion with family, patient was pronounced I believe around 1920 or 1930. cc: Russel Jimenez MD
--- NOTE | 2019-02-13 15:25 | DISCHARGE SUMMARY ---
ADMISSION DATE: 01/19/2019 DISCHARGE DATE: 02/12/2019 TIME OF : Around 7:30 PM. CAUSE OF : 1. Hypoxic respiratory failure due to aspiration. 2. Acute blood loss anemia. 3. Retroperitoneal bleed. 4. Suspected upper GI bleed. 5. Acute persistent encephalopathy due to septic shock HOSPITAL COURSE SUMMARY: Mr. Benoit was a 68-year-old man who had initially presented on 01/17/2019 with chief complaints of altered mental status and weakness, decreased appetite and fever. He was found to have gram-negative sepsis due to Morganella, likely originating from cholecystitis and he underwent cholecystotomy drain and was started on IV antibiotics. During hospitalization he had primary respiratory and then cardiac arrest on January 28 requiring intubation between January 28 and 31 January. He had also developed MRSA aspiration pneumonia requiring additional IV antibiotics. His hospital course was complicated by protracted encephalopathy, recurrent aspiration event, inability to tolerate NG tube feed, persistent altered mental status and right upper extremity PICC line associated DVT as well as relative adrenal insufficiency and he was receiving stress dose steroids as well as enoxaparin. However, on 02/12/2019, he had started developing suspected gastrointestinal bleed with flecks of blood in the mouth and had recurrent hypotension requiring blood product administration as well as IV fluids. His initial code status was DNR level 1 and as per my discussion with the , she would not want aggressive measures like chest compressions, intubations, or shock, and with his ongoing bleeding episode after discussion with the , we had decided to manage it conservatively with blood product administration as well as IV fluids rather than transferring him to ICU and start IV pressor support or aggressive GI intervention. However, during the later part of the day on 02/12/2019, I talked with the patient's daughter on the phone and she wanted me to pursue aggressive measures including chest compressions, intubations if need arose and patient's agreed so I had immediately transferred patient to ICU. I had started him on norepinephrine. Right at the shift change, code blue was announced because the patient likely had became apneic and a brief cardiopulmonary resuscitation according to ACLS protocol was given. I was not present per the protocol. However, I was informed that he did not survive after that and family was kept informed. cc: MD KELSEY Frey
== END 2019-02-12 19:34 | disposition expired | DRG 871 ==
LOC: SUPCPDRO → ED 14:19 → SUATTDRO 21:33 → 4N 21:33 → INTOOBSV 21:33 → ICU 01-18 15:41 → SUATTDRO 01-19 15:27 → 2N 02-08 13:54 → ICU 02-12 17:58
PROVIDERS: ATTEND Internal Medicine